=== PATIENT | male | born 1990 | race Caucasian/White ===

== ENCOUNTER 2017-08-03 10:00 | Inpatient (IN) | payer OTHER ==
[2017-08-03 11:51] VITALS: BMI 33.2
--- NOTE | 2017-08-03 13:23 | HP ---
COWS - Scale Resting Pulse: 4= HI > 121 Sweatin=Flushed/Facial Moisture Restless Observation: 3= Extraneous Movement Pupil Size: 2= Moderately Dilated Bone or Joint Aches: 2= Severe Diffuse Aches Runny Nose/ Eye Tearin= Runny Nose/Eyes GI Upset > 30mins: 3= Vomiting/Diarrhea Tremor Observation: 2= Slight Tremor Visible Yawning Observation: 2= >3x During Session Anxiety or Irritability: 2=Irritable/Anxious Goose Flesh Skin: 0=Smooth Skin COWS Score: 24 CIWA Score - CIWA Score Nausea/Vomitin Muscle Tremors: 3 Anxiety: 3 Agitation: 3 Paroxysmal Sweats: 2 Orientation: 0-Oriented Tacttile Disturbances: 2-Mild Itch/Numbness/Burn Auditory Disturbances: 2-Mild Harshness/Frighten Visual Disturbances: 1-Very Mild Sensitivity Headache: 2-Mild CIWA-Ar Total Score: 21 Admission ROS BHS - HPI Chief Complaint: i need help to stop using heroin.alcohol and marijuana Allergies/Adverse Reactions: Allergies Allergy/AdvReac Type Severity Reaction Status Date / Time No Known Allergies Allergy Verified 08/03/17 11:46 History of Present Illness: this 27 years old male with heroin,alcohol and marijuana dependence,seeking detox,never been in treatment before denied medical problem no significant period of sobriety Exam Limitations: No Limitations - Ebola screening Have you traveled outside of the country in the last 21 days: No (N) Have you had contact with anyone from an Ebola affected area: No Have you been sick,other than usual withdrawal symptoms: No Do you have a fever: No - Review of Systems Constitutional: Chills, Loss of Appetite, Malaise, Night Sweats, Changes in sleep, Weakness EENT: reports: Tearing, Nose Congestion Respiratory: reports: Other (asthma) Cardiac: reports: Palpitations GI: reports: Diarrhea, Nausea, Vomiting, Abdominal cramping : reports: No Symptoms Reported Musculoskeletal: reports: Back Pain, Joint Pain, Muscle Pain, Joint Stiffness Integumentary: reports: Dryness Neuro: reports: Headache, Tremors Endocrine: reports: No Symptoms Reported Hematology: reports: No Symptoms Reported Psychiatric: reports: No Sypmtoms Reported, Judgement Intact, Mood/Affect Appropiate, Orientated x3 Patient History - Patient Medical History Hx Asthma: Yes (on albuterol inhaler) Hx Chronic Obstructive Pulmonary Disease (COPD): No Hx Cancer: No Hx Cardiac Disorders: No Hx Hypertension: No Hx Hypercholesterolemia: No Hx Pacemaker: No HX Cerebrovascular Accident: No Hx Seizures: No Hx Dementia: No Hx Diabetes: No Hx Gastrointestinal Disorders: No Hx Liver Disease: No Hx Genitourinary Disorders: No Hx Sexually Transmitted Disorders: No Hx Renal Disease (ESRD): No Hx Thyroid Disease: No Hx Human Immunodeficiency Virus (HIV): No (last in 2014 negative) Hx Hepatitis C: No Hx Depression: No Hx Suicide Attempt: No Hx Bipolar Disorder: No Hx Schizophrenia: No Other Medical History: no suicidal,no homicidal - Patient Surgical History Past Surgical History: No Hx Neurologic Surgery: No Hx Cataract Extraction: No Hx Cardiac Surgery: No Hx Lung Surgery: No Hx Breast Surgery: No Hx Breast Biopsy: No Hx Abdominal Surgery: No Hx Appendectomy: No Hx Cholecystectomy: No Hx Genitourinary Surgery: No Hx Section: No Hx Orthopedic Surgery: No Anesthesia Reaction: No - PPD History Previous Implant?: Yes Documented Results: Negative w/o proof Implanted On Prior R Admission?: No PPD to be Administered?: Yes - Smoking Cessation Smoking history: Never smoked Have you smoked in the past 12 months: No Hx Chewing Tobacco Use: No - Substance & Tx. History Hx Alcohol Use: Yes Hx Substance Use: Yes Substance Use Type: Alcohol, Heroin, Marijuana - Substances Abused Alcohol Route: Oral Frequency: Daily Amount used: 2 (40 ML BUDWEISER), WHISKEY Age of first use: 17 Date of Last Use: 08/03/17 Heroin Route: Injection Frequency: Daily Amount used: 8 BAGS DAILY ($60) Age of first use: 26 Date of Last Use: 08/03/17 Marijuana/Hashish Route: Smoking Frequency: Daily Amount used: 1 BLUNT DAILY Age of first use: 12 Date of Last Use: 08/03/17 Family Disease History - Family Disease History Family History: Denies Admission Physical Exam BHS - Vital Signs Vital Signs: Vital Signs - 24 hr 08/03/17 11:48 Temperature 96.8 F L Pulse Rate 122 H Respiratory 20 Rate Blood Pressure 131/86 - Physical General Appearance: Yes: Moderate Distress, Alcohol on Breath, Tremorous, Sweating HEENTM: Yes: Normal ENT Inspection, S[place], Pharynx Normal Respiratory: Yes: Within Normal Limits, Lungs Clear, No Respiratory Distress Neck: Yes: Within Normal Limits, Supple, Trachea in good position Breast: Yes: Within Normal Limits Cardiology: Yes: Within Normal Limits, Regular Rhythm, Regular Rate, S1, S2 Abdominal: Yes: Within Normal Limits, Normal Bowel Sounds, Non Tender, Flat, Soft Genitourinary: Yes: Within Normal Limits Back: Yes: Normal Inspection, Muscle Spasm Musculoskeletal: Yes: full range of Motion, Back pain, Joint Stiffness, Muscle Pain Extremities: Yes: Within Normal Limits, Normal Range of Motion, Tremors Neurological: Yes: grooving lathe tender II-XII NML intact, Fully Oriented, Alert, Motor Strength 5/5 Integumentary: Yes: Dry, Track Richardson, Other (cellulitis right forearm) Lymphatic: Yes: Within Normal Limits - Diagnostic (1) Opioid dependence with withdrawal Current Visit: Yes Status: Acute (2) Alcohol dependence with uncomplicated withdrawal Current Visit: Yes Status: Acute (3) Cannabis dependence Current Visit: Yes Status: Acute Cleared for Admission [facility] - Detox or Rehab [facility] Level of Care: Medically Managed Detox Regimen/Protocol: Methadone/Librium [facility] Breath Alcohol Content Breath Alcohol Content: 0.062 Urine Drug Screen - Results Drug Screen Negative: No Urine Drug Screen Results: THC-Marijuana, OPI-Opiates
[2017-08-03] MEDS ORDERED: guaiFENesin/D-METHORPHAN HB 10 ML UNIT-DOSE CUPS PO PRN (13:37)
[2017-08-03] MEDS ORDERED: ACETAMINOPHEN 325 MG TABLET (FP) PO PRN (13:37)
[2017-08-03] MEDS ORDERED: MAGNESIUM CITRATE 300 ML BOTTLE PO PRN (13:37)
[2017-08-03] MEDS ORDERED: MENTHOL/PHENOL 1 EACH UD MM PRN (13:37)
[2017-08-03] MEDS ORDERED: MAGNESIUM HYDROX 2400MG/30ML ORAL SUSPENSION 30 ML CUP PO PRN (13:37)
[2017-08-03] MEDS ORDERED: LOPERAMIDE HCL 2 MG CAPSULE PO PRN (13:37)
[2017-08-03] MEDS ORDERED: IBUPROFEN 400 MG TABLET (FP) PO PRN (13:37)
[2017-08-03] MEDS ORDERED: MAG HYDROX/AL HYDROX/SIMETH 30 ML UNIT-DOSE CUP PO PRN (13:37)
[2017-08-03] MEDS ORDERED: P-EPHED 60MG/TRIPROLIDI 2.5MG TABLET PO PRN (13:37)
[2017-08-03] MEDS ORDERED: METHADONE HCL 10 MG TABLET (FOR DETOX USE ONLY) PO ONE ×2 (14:00→23:00)
[2017-08-03] MEDS ORDERED: chlordiazePOXIDE HCL 25 MG CAPSULE PO ONE (14:00)
[2017-08-03] MEDS: ALBUTEROL SO4 18 GM HFA INHALER IH PRN (14:58)
[2017-08-03] MEDS: chlordiazePOXIDE HCL 25 MG CAPSULE PO SCH ×2 (16:58→22:30)
[2017-08-03 19:49] LABS: URINE APPEARANCE CLEAR; URINE BILIRUBIN NEGATIVE (<2.0 mg/dL); URINE BLOOD NEGATIVE (NEGATIVE); URINE COLOR COLORLESS; URINE GLUCOSE (UA) NEGATIVE (NEGATIVE); URINE KETONE NEGATIVE (NEGATIVE); URINE LEUK ESTERASE NEGATIVE (NEGATIVE); URINE NITRITE NEGATIVE (NEGATIVE); URINE PROTEIN NEGATIVE (NEGATIVE); URINE UROBILINOGEN NEGATIVE mg/dL (0.2-1.0)
[2017-08-03] MEDS: hydrOXYzine PAMOATE 25 MG CAPSULE (FP) PO PRN (20:01)
[2017-08-03] MEDS: THIAMINE HCL 100 MG TABLET (FP) PO SCH (22:30)
[2017-08-03] MEDS: MELATONIN 5 MG TABLETS PO PRN (22:31)
[2017-08-04] MEDS: chlordiazePOXIDE HCL 25 MG CAPSULE PO SCH ×4 (05:44→22:07)
[2017-08-04] MEDS: hydrOXYzine PAMOATE 25 MG CAPSULE (FP) PO PRN (05:46)
[2017-08-04] MEDS ORDERED: METHADONE HCL 10 MG TABLET (FOR DETOX USE ONLY) PO SCH (10:00)
--- NOTE | 2017-08-04 10:07 | EKG ---
Test Reason : Blood Pressure : / mmHG Vent. Rate : 088 BPM Atrial Rate : 088 BPM P-R Int : 152 ms QRS Dur : 098 ms QT Int : 358 ms P-R-T Axes : 073 062 023 degrees QTc Int : 433 ms NORMAL SINUS RHYTHM NO PREVIOUS ECGS AVAILABLE Confirmed by EDY BEAN MD ([id number]) on 08/04/2017 10:07:04 AM Referred By: Confirmed By:EDY BEAN MD
[2017-08-04] MEDS: PRENATAL VITAMINS W/ FOLIC ACID TABLET (FP) PO SCH (10:13)
[2017-08-04] MEDS: ALBUTEROL SO4 18 GM HFA INHALER IH PRN ×2 (10:13→15:51)
[2017-08-04 10:17] LABS: HEMOGLOBIN 13.6 GM/dL (11.7-16.9); MCH 28.8 pg (25.7-33.7); MCHC 34.1 g/dl (32.0-35.9); MEAN CELL VOLUME 84.4 fl (80-96); MEAN PLT VOLUME 8.1 fl (7.5-11.1); PLATELET COUNT 351 K/MM3 (134-434); RBC 4.74 M/mm3 (4.00-5.60); RDW 13.1 % (11.9-15.9); WHITE BLOOD COUNT 6.9 K/mm3 (4.0-10.0)
[2017-08-04 10:34] LABS: ALBUMIN 3.9 g/dl (3.4-5.0); ANION GAP 9 (8-16); BLOOD UREA NITROGEN 11 mg/dL (7-18); CALCIUM 9.4 mg/dL (8.5-10.1); CHLORIDE 103 mmol/L (98-107); CO2 26 mmol/L (21-32); GLUCOSE,RANDOM 109 mg/dL (74-106); POTASSIUM 3.7 mmol/L (3.5-5.1); SODIUM 138 mmol/L (136-145)
[2017-08-04 10:39] LABS: ALK PHOS 77 U/L (45-117); BILIRUBIN,TOTAL 0.4 mg/dL (0.2-1.0); CREATININE 1.1 mg/dL (0.7-1.3); SGOT/AST 14 U/L (15-37); SGPT/ALT 20 U/L (12-78); TOT PROT 8.2 g/dl (6.4-8.2)
--- NOTE | 2017-08-04 11:07 | PN ---
[facility] CIWA - CIWA Score Nausea/Vomitin-No Nausea/No Vomiting Muscle Tremors: 4-Moderate,w/Arms Extend Anxiety: 4-Mod. Anxious/Guarded Agitation: 3 Paroxysmal Sweats: No Perspiration Orientation: 0-Oriented Tacttile Disturbances: 2-Mild Itch/Numbness/Burn Auditory Disturbances: 2-Mild Harshness/Frighten Visual Disturbances: 2-Mild Sensitivity Headache: 0-None Present CIWA-Ar Total Score: 17 S COWS - Scale Resting Pulse: 0= [place] 80 or Below Sweatin= No chills or Flushing Restless Observation: 1= Difficult to Sit Still Pupil Size: 0= Normal to Room Light Bone or Joint Aches: 0= None Runny Nose/ Eye Tearin= Runny Nose/Eyes GI Upset > 30mins: 0= None Tremor Observation of Outstretched Hands: 2= Slight Tremor Visible Yawning Observation: 2= >3x During Session Anxiety or Irritability: 2=Irritable/Anxious Goose Flesh Skin: 3=Piloerection COWS Score: 12 S Progress Note (SOAP) Subjective: Anxious, Interrupted Sleep, Tremors. Objective: PATIENT A & O X 3, OBSERVED AMBULATING ON UNIT. NO ACUTE DISTRESS. 08/04/17 11:06 Vital Signs Temperature 97.5 F L 08/04/17 09:06 Pulse Rate 79 08/04/17 09:06 Respiratory Rate 16 08/04/17 09:06 Blood Pressure 107/68 08/04/17 09:06 O2 Sat by Pulse Oximetry (%) Laboratory Tests 08/03/17 08/04/17 08/04/17 14:15 06:00 06:00 WBC 6.9 RBC 4.74 Hgb 13.6 Hct 40.0 MCV 84.4 MCH 28.8 MCHC 34.1 RDW 13.1 Plt Count 351 MPV 8.1 Sodium 138 Potassium 3.7 Chloride 103 Carbon Dioxide 26 Anion Gap 9 BUN 11 Creatinine 1.1 Creat Clearance w eGFR > 60 Random Glucose 109 H Calcium 9.4 Total Bilirubin 0.4 AST 14 L ALT 20 Alkaline Phosphatase 77 Total Protein 8.2 Albumin 3.9 Urine Color Colorless Urine Appearance Clear Urine pH 6.0 Ur Specific [place] 1.003 Urine Protein Negative Urine Glucose (UA) Negative Urine Ketones Negative Urine Blood Negative Urine Nitrite Negative Urine Bilirubin Negative Urine Urobilinogen Negative Ur Leukocyte Esterase Negative RPR Titer 08/04/17 06:00 WBC RBC Hgb Hct MCV MCH MCHC RDW Plt Count MPV Sodium Potassium Chloride Carbon Dioxide Anion Gap BUN Creatinine Creat Clearance w eGFR Random Glucose Calcium Total Bilirubin AST ALT Alkaline Phosphatase Total Protein Albumin Urine Color Urine Appearance Urine pH Ur Specific [place] Urine Protein Urine Glucose (UA) Urine Ketones Urine Blood Urine Nitrite Urine Bilirubin Urine Urobilinogen Ur Leukocyte Esterase RPR Titer Nonreactive LABS NOTED. Assessment: 08/04/17 11:06 WITHDRAWAL SYMPTOMS. Plan: CONTINUE DETOX.
--- NOTE | 2017-08-04 11:37 | CONSULT ---
[facility] Psychiatric Consult - Data Date of interview: 08/04/17 Admission source: [facility] Identifying data: First admission to [facility] for this 27 y/o male seeking detox treatment on for heroin,cannabis,alcohol and xanax dependence.Patient is single without children,domiciled and currently employed. Substance Abuse History: Confirmed by patient in this interview.Details in current [facility] report : Smoking history: Never smoked. Have you smoked in the past 12 months: No. Hx Chewing Tobacco Use: No. - Substance & Tx. History. Hx Alcohol Use: Yes. Hx Substance Use: Yes. Substance Use Type: Alcohol, Heroin, Marijuana. - Substances Abused. Alcohol. Route: Oral. Frequency: Daily. Amount used: 2 (40 ML BUDWEISER), WHISKEY. Age of first use: 17. Date of Last Use: 08/03/17. Heroin. Route: Injection. Frequency: Daily. Amount used: 8 BAGS DAILY ($60). Age of first use: 26. Date of Last Use: 08/03. Marijuana/Hashish. Route: Smoking. Frequency: Daily. Amount used: 1 BLUNT DAILY. Age of first use: 12. Date of Last Use: 08/03/17 Medical History: Bronchial asthma. Psychiatric History: Patient denies. Physical/Sexual Abuse/Trauma History: Patient denies. Additional Comment: Urine Drug Screen Results: THC-Marijuana, OPI-Opiates.Noted. Mental Status Exam - Mental Status Exam Alert and Oriented to: Time, Place, Person Cognitive Function: Good Patient Appearance: Well Groomed (short stature,overweight) Mood: Hopeful, Euthymic Affect: Appropriate, Normal Range Patient Behavior: Fatigued, Appropriate, Cooperative Speech Pattern: Clear Voice Loudness: Normal Thought Process: Intact, Goal Oriented Thought Disorder: Not Present Hallucinations: Denies Suicidal Ideation: Denies Homicidal Ideation: Denies Insight/Judgement: Poor Sleep: Poorly, Difficulty falling asleep Appetite: Good Muscle strength/Tone: Normal Gait/Station: Normal Psychiatric Findings - Problem List ([place] 1, 2,3) (1) Alcohol dependence with uncomplicated withdrawal Current Visit: Yes Status: Acute (2) Cannabis dependence Current Visit: Yes Status: Acute (3) Opioid dependence with withdrawal Current Visit: Yes Status: Acute (4) Insomnia Current Visit: Yes Status: Acute - Initial Treatment Plan Initial Treatment Plan: Psychoeducation.Sleep hygiene.Detoxification in progress.Ambien 10 mg po hs prn.Patient is informed of risk of parasomnias.Agrees with this careplan.Observation.
[2017-08-04] MEDS: chlordiazePOXIDE HCL 25 MG CAPSULE PO PRN (15:36)
[2017-08-04] MEDS: ZOLPIDEM TARTRATE 10 MG TABLET (PARK CARE ONLY) PO PRN (22:07)
[2017-08-04] MEDS: THIAMINE HCL 100 MG TABLET (FP) PO SCH (22:07)
[2017-08-05] MEDS: chlordiazePOXIDE HCL 25 MG CAPSULE PO PRN (02:04)
[2017-08-05] MEDS: hydrOXYzine PAMOATE 25 MG CAPSULE (FP) PO PRN ×2 (02:04→15:16)
[2017-08-05] MEDS: chlordiazePOXIDE HCL 25 MG CAPSULE PO SCH ×2 (05:26→10:09)
[2017-08-05] MEDS: METHADONE HCL 5 MG TABLET (FOR DETOX USE ONLY) PO SCH (10:09)
[2017-08-05] MEDS: ALBUTEROL SO4 18 GM HFA INHALER IH PRN ×2 (10:09→22:10)
[2017-08-05] MEDS: PRENATAL VITAMINS W/ FOLIC ACID TABLET (FP) PO SCH (10:09)
--- NOTE | 2017-08-05 14:54 | PN ---
S CIWA - CIWA Score Nausea/Vomitin-No Nausea/No Vomiting Muscle Tremors: None Anxiety: 4-Mod. Anxious/Guarded Agitation: 2 Paroxysmal Sweats: 4-Forehead w/Sweat Beads Orientation: 0-Oriented Tacttile Disturbances: 2-Mild Itch/Numbness/Burn Auditory Disturbances: 1-Very Mild Visual Disturbances: 2-Mild Sensitivity Headache: 0-None Present CIWA-Ar Total Score: 15 BHS COWS - Scale Resting Pulse: 1= [place] 81-100 Sweatin= Chills/Flushing Restless Observation: 1= Difficult to Sit Still Pupil Size: 0= Normal to Room Light Bone or Joint Aches: 0= None Runny Nose/ Eye Tearin= Nasal Congestion GI Upset > 30mins: 1= Stomach Cramp Tremor Observation of Outstretched Hands: 0= None Yawning Observation: 2= >3x During Session Anxiety or Irritability: 2=Irritable/Anxious Goose Flesh Skin: 3=Piloerection COWS Score: 12 BHS Progress Note (SOAP) Subjective: Interrupted Sleep, Sweating, Stomach Cramping, Chills, Anxious. Objective: PATIENT A & O X 3, OBSERVED AMBULATING ON UNIT. NO ACUTE DISTRESS. 08/05/17 14:53 Vital Signs Temperature 96.9 F L 08/05/17 14:50 Pulse Rate 93 H 08/05/17 14:50 Respiratory Rate 18 08/05/17 14:50 Blood Pressure 108/65 08/05/17 14:50 O2 Sat by Pulse Oximetry (%) Laboratory Tests 08/03/17 08/04/17 08/04/17 14:15 06:00 06:00 WBC 6.9 RBC 4.74 Hgb 13.6 Hct 40.0 MCV 84.4 MCH 28.8 MCHC 34.1 RDW 13.1 Plt Count 351 MPV 8.1 Sodium 138 Potassium 3.7 Chloride 103 Carbon Dioxide 26 Anion Gap 9 BUN 11 Creatinine 1.1 Creat Clearance w eGFR > 60 Random Glucose 109 H Calcium 9.4 Total Bilirubin 0.4 AST 14 L ALT 20 Alkaline Phosphatase 77 Total Protein 8.2 Albumin 3.9 Urine Color Colorless Urine Appearance Clear Urine pH 6.0 Ur Specific [place] 1.003 Urine Protein Negative Urine Glucose (UA) Negative Urine Ketones Negative Urine Blood Negative Urine Nitrite Negative Urine Bilirubin Negative Urine Urobilinogen Negative Ur Leukocyte Esterase Negative RPR Titer 08/04/17 06:00 WBC RBC Hgb Hct MCV MCH MCHC RDW Plt Count MPV Sodium Potassium Chloride Carbon Dioxide Anion Gap BUN Creatinine Creat Clearance w eGFR Random Glucose Calcium Total Bilirubin AST ALT Alkaline Phosphatase Total Protein Albumin Urine Color Urine Appearance Urine pH Ur Specific [place] Urine Protein Urine Glucose (UA) Urine Ketones Urine Blood Urine Nitrite Urine Bilirubin Urine Urobilinogen Ur Leukocyte Esterase RPR Titer Nonreactive LABS NOTED. Assessment: 08/05/17 14:53 WITHDRAWAL SYMPTOMS. Plan: CONTINUE DETOX.
[2017-08-05] MEDS: chlordiazePOXIDE 5 MG CAPSULE PO SCH ×2 (17:21→22:10)
[2017-08-05] MEDS: THIAMINE HCL 100 MG TABLET (FP) PO SCH (22:10)
[2017-08-05] MEDS: ZOLPIDEM TARTRATE 10 MG TABLET (PARK CARE ONLY) PO PRN (22:12)
[2017-08-06] MEDS: hydrOXYzine PAMOATE 25 MG CAPSULE (FP) PO PRN (00:30)
[2017-08-06] MEDS: MELATONIN 5 MG TABLETS PO PRN (00:30)
[2017-08-06] MEDS: chlordiazePOXIDE HCL 25 MG CAPSULE PO PRN (01:24)
[2017-08-06] MEDS: ALBUTEROL SO4 18 GM HFA INHALER IH PRN (06:13)
[2017-08-06] MEDS: chlordiazePOXIDE 5 MG CAPSULE PO SCH ×2 (06:13→10:11)
[2017-08-06] MEDS: PRENATAL VITAMINS W/ FOLIC ACID TABLET (FP) PO SCH (10:11)
[2017-08-06] MEDS: METHADONE HCL 5 MG TABLET (FOR DETOX USE ONLY) PO SCH (10:11)
--- NOTE | 2017-08-06 16:29 | PN ---
BHS Progress Note (SOAP) Subjective: Interrupted Sleep, Sweating, Anxious, Fatigue. Objective: PATIENT A & O X 3, OBSERVED AMBULATING ON UNIT. NO ACUTE DISTRESS. 08/06/17 16:28 Vital Signs Temperature 96.8 F L 08/06/17 10:33 Pulse Rate 90 08/06/17 10:33 Respiratory Rate 20 08/06/17 10:33 Blood Pressure 121/78 08/06/17 10:33 O2 Sat by Pulse Oximetry (%) Laboratory Tests 08/03/17 08/04/17 08/04/17 14:15 06:00 06:00 WBC 6.9 RBC 4.74 Hgb 13.6 Hct 40.0 MCV 84.4 MCH 28.8 MCHC 34.1 RDW 13.1 Plt Count 351 MPV 8.1 Sodium 138 Potassium 3.7 Chloride 103 Carbon Dioxide 26 Anion Gap 9 BUN 11 Creatinine 1.1 Creat Clearance w eGFR > 60 Random Glucose 109 H Calcium 9.4 Total Bilirubin 0.4 AST 14 L ALT 20 Alkaline Phosphatase 77 Total Protein 8.2 Albumin 3.9 Urine Color Colorless Urine Appearance Clear Urine pH 6.0 Ur Specific [place] 1.003 Urine Protein Negative Urine Glucose (UA) Negative Urine Ketones Negative Urine Blood Negative Urine Nitrite Negative Urine Bilirubin Negative Urine Urobilinogen Negative Ur Leukocyte Esterase Negative RPR Titer 08/04/17 06:00 WBC RBC Hgb Hct MCV MCH MCHC RDW Plt Count MPV Sodium Potassium Chloride Carbon Dioxide Anion Gap BUN Creatinine Creat Clearance w eGFR Random Glucose Calcium Total Bilirubin AST ALT Alkaline Phosphatase Total Protein Albumin Urine Color Urine Appearance Urine pH Ur Specific [place] Urine Protein Urine Glucose (UA) Urine Ketones Urine Blood Urine Nitrite Urine Bilirubin Urine Urobilinogen Ur Leukocyte Esterase RPR Titer Nonreactive LABS NOTED. Assessment: 08/06/17 16:28 WITHDRAWAL SYMPTOMS. Plan: CONTINUE DETOX. INCREASE DAILY PO FLUID INTAKE.
[2017-08-06] MEDS ORDERED: chlordiazePOXIDE HCL 10 MG CAPSULE PO SCH (17:00)
[2017-08-06 17:48] VITALS: BP 106/64; PULSE 80; TEMP 97.3
--- NOTE | 2017-08-06 18:38 | PN ---
S Progress Note Note: called by nurse patient did not want to complete treatment.seen by counselor, did not want to wait,signed release ama
--- NOTE | 2017-08-06 18:43 | DS ---
[facility] Detox Discharge Summary Admission Date: 08/03/17 Discharge Date: 08/06/17 - History Present History: Alcohol Dependence, Cannabis Dependence, Opioid Dependence Additional Comments: patient did not want to complete treatment,seen by counselor,did not want to wait,signed release ama - Physical Exam Results Vital Signs: Vital Signs Temperature 97.3 F L 08/06/17 17:45 Pulse Rate 80 08/06/17 17:45 Respiratory Rate 18 08/06/17 17:45 Blood Pressure 106/64 08/06/17 17:45 O2 Sat by Pulse Oximetry (%) Pertinent Admission Physical Exam Findings: withdrawal signs and symptom Vital Signs Temperature 97.3 F L 08/06/17 17:45 Pulse Rate 80 08/06/17 17:45 Respiratory Rate 18 08/06/17 17:45 Blood Pressure 106/64 08/06/17 17:45 O2 Sat by Pulse Oximetry (%) Laboratory Last Values WBC 6.9 K/mm3 (4.0-10.0) 08/04/17 06:00 RBC 4.74 M/mm3 (4.00-5.60) 08/04/17 06:00 Hgb 13.6 GM/dL (11.7-16.9) 08/04/17 06:00 Hct 40.0 % (35.4-49) 08/04/17 06:00 MCV 84.4 fl (80-96) 08/04/17 06:00 MCH 28.8 pg (25.7-33.7) 08/04/17 06:00 MCHC 34.1 g/dl (32.0-35.9) 08/04/17 06:00 RDW 13.1 % (11.9-15.9) 08/04/17 06:00 Plt Count 351 K/MM3 (134-434) 08/04/17 06:00 MPV 8.1 fl (7.5-11.1) 08/04/17 06:00 Sodium 138 mmol/L (136-145) 08/04/17 06:00 Potassium 3.7 mmol/L (3.5-5.1) 08/04/17 06:00 Chloride 103 mmol/L (98-107) 08/04/17 06:00 Carbon Dioxide 26 mmol/L (21-32) 08/04/17 06:00 Anion Gap 9 (8-16) 08/04/17 06:00 BUN 11 mg/dL (7-18) 08/04/17 06:00 Creatinine 1.1 mg/dL (0.7-1.3) 08/04/17 06:00 Creat Clearance w eGFR > 60 (>60) 08/04/17 06:00 Random Glucose 109 mg/dL (74-106) H 08/04/17 06:00 Calcium 9.4 mg/dL (8.5-10.1) 08/04/17 06:00 Total Bilirubin 0.4 mg/dL (0.2-1.0) 08/04/17 06:00 AST 14 U/L (15-37) L 08/04/17 06:00 ALT 20 U/L (12-78) 08/04/17 06:00 Alkaline Phosphatase 77 U/L (45-117) 08/04/17 06:00 Total Protein 8.2 g/dl (6.4-8.2) 08/04/17 06:00 Albumin 3.9 g/dl (3.4-5.0) 08/04/17 06:00 Urine Color Colorless 08/03/17 14:15 Urine Appearance Clear 08/03/17 14:15 Urine pH 6.0 (5.0-8.0) 08/03/17 14:15 Ur Specific [place] 1.003 (1.001-1.035) 08/03/17 14:15 Urine Protein Negative (NEGATIVE) 08/03/17 14:15 Urine Glucose (UA) Negative (NEGATIVE) 08/03/17 14:15 Urine Ketones Negative (NEGATIVE) 08/03/17 14:15 Urine Blood Negative (NEGATIVE) 08/03/17 14:15 Urine Nitrite Negative (NEGATIVE) 08/03/17 14:15 Urine Bilirubin Negative (<2.0 mg/dL) 08/03/17 14:15 Urine Urobilinogen Negative mg/dL (0.2-1.0) 08/03/17 14:15 Ur Leukocyte Esterase Negative (NEGATIVE) 08/03/17 14:15 RPR Titer Nonreactive (NONREACTIVE) 08/04/17 06:00 - Medication Discharge Medications: Ambulatory Orders Albuterol Sulfate Inhaler - [Ventolin Hfa Inhaler -] 1 - 2 inh PO Q4H 08/03/17 - Diagnosis (1) Opioid dependence with withdrawal Current Visit: Yes Status: Acute (2) Alcohol dependence with uncomplicated withdrawal Current Visit: Yes Status: Acute (3) Cannabis dependence Current Visit: Yes Status: Acute - AMA Did Patient Leave Against Medical Advice: Yes
[2017-08-07] MEDS ORDERED: METHADONE HCL 10 MG TABLET (FOR DETOX USE ONLY) PO SCH (10:00)
[2017-08-08] MEDS ORDERED: METHADONE HCL 5 MG TABLET (FOR DETOX USE ONLY) PO SCH (06:00)
== END 2017-08-06 19:21 | disposition left against medical advice (07) | DRG 770 ==
LOC: YASAS 10:00 → Y3N 13:34
PROVIDERS: ADMIT Internal Medicine; ATTEND Internal Medicine
PROC: HZ2ZZZZ Detoxification Services for Substance Abuse Treatment (ICD-10-PCS; principal; 2017-08-03)
DX: F11.23 Opioid dependence with withdrawal (principal); F10.230 Alcohol dependence with withdrawal, uncomplicated; F12.20 Cannabis dependence, uncomplicated; G47.00 Insomnia, unspecified; J45.909 Unspecified asthma, uncomplicated
CPT/HCPCS: 36415; 80053; 81003; 85027; 86593; 93005; 93010

== ENCOUNTER 2018-01-27 09:13 | Inpatient (IN) | payer OTHER ==
[2018-01-27 09:56] VITALS: BMI 34.4
--- NOTE | 2018-01-27 10:38 | HP ---
COWS - Scale Resting Pulse: 2= [place] 101-120 Sweatin= Chills/Flushing Restless Observation: 1= Difficult to Sit Still Pupil Size: 0= Normal to Room Light Bone or Joint Aches: 1= Mild Discomfort Runny Nose/ Eye Tearin= Runny Nose/Eyes GI Upset > 30mins: 2= Nausea/Diarrhea Tremor Observation: 2= Slight Tremor Visible Yawning Observation: 1= 1-2x During Session Anxiety or Irritability: 2=Irritable/Anxious Goose Flesh Skin: 0=Smooth Skin COWS Score: 14 CIWA Score - CIWA Score Nausea/Vomitin Muscle Tremors: 3 Anxiety: 4-Mod. Anxious/Guarded Agitation: 1-Slight > Activity Paroxysmal Sweats: 1-Minimal Palms Moist Orientation: 0-Oriented Tacttile Disturbances: 1-Very Mild Itch/Numbness Auditory Disturbances: 1-Very Mild Visual Disturbances: 1-Very Mild Sensitivity Headache: 1-Very Mild CIWA-Ar Total Score: 15 Admission ROS [facility] - HPI Chief Complaint: I came here myself, I can't stop, I get real sick, I wouldn't wish this on my worst enemy Allergies/Adverse Reactions: Allergies Allergy/AdvReac Type Severity Reaction Status Date / Time No Known Allergies Allergy Verified 01/27/18 09:51 History of Present Illness: 27 yo gentleman here for detox from opiates, alcohol, alprazolam, also using cocaine and marijuana. No seizures but does have black outs. States had a DUI, realized he needs help to stop using. Feeling sick now, beginning chills, feels 'strange' when he starts to 'come down' - can't stop using, uses first thing in the morning. Exam Limitations: Clinical Condition - Ebola screening Have you traveled outside of the country in the last 21 days: No (N) Have you had contact with anyone from an Ebola affected area: No Have you been sick,other than usual withdrawal symptoms: No Do you have a fever: No - Review of Systems Constitutional: Loss of Appetite, Night Sweats, Changes in sleep EENT: reports: Tearing, Nose Congestion Respiratory: reports: No Symptoms reported Cardiac: reports: No Symptoms Reported GI: reports: Poor Appetite, Indigestion, Abdominal cramping : reports: Dysuria, Frequency Musculoskeletal: reports: Back Pain, Joint Pain, Muscle Pain Integumentary: reports: Rash (eczema) Neuro: reports: Headache, Tremors Endocrine: reports: No Symptoms Reported Hematology: reports: No Symptoms Reported Psychiatric: reports: Judgement Intact, Mood/Affect Appropiate, Anxious Other Systems: Reviewed and Negative Patient History - Patient Medical History Hx Asthma: Yes (on meds) Hx Chronic Obstructive Pulmonary Disease (COPD): No Hx Cancer: No Hx Cardiac Disorders: No Hx Hypertension: No Hx Hypercholesterolemia: No Hx Pacemaker: No HX Cerebrovascular Accident: No Hx Seizures: No Hx Dementia: No Hx Diabetes: No Hx Gastrointestinal Disorders: No Hx Liver Disease: No Hx Genitourinary Disorders: No Hx Sexually Transmitted Disorders: No Hx Renal Disease (ESRD): No Hx Thyroid Disease: No Hx Human Immunodeficiency Virus (HIV): No (last in 2014 negative) Hx Hepatitis C: No Hx Depression: Yes (feels stress, insomnia) Hx Suicide Attempt: No Hx Bipolar Disorder: No Hx Schizophrenia: No - Patient Surgical History Past Surgical History: No Hx Neurologic Surgery: No Hx Cataract Extraction: No Hx Cardiac Surgery: No Hx Lung Surgery: No Hx Breast Surgery: No Hx Breast Biopsy: No Hx Abdominal Surgery: No Hx Appendectomy: No Hx Cholecystectomy: No Hx Genitourinary Surgery: No Hx Section: No Hx Orthopedic Surgery: No Anesthesia Reaction: No - PPD History Previous Implant?: Yes Documented Results: Negative w/proof Implanted On Prior [facility] Admission?: Yes Date: 08/05/17 PPD to be Administered?: No - Reproductive History Patient is a Female of Child Bearing Age (11 -55 yrs old): No (male) - Smoking Cessation Smoking history: Never smoked Have you smoked in the past 12 months: No Cigars Per Day: 0 Hx Chewing Tobacco Use: No - Substance & Tx. History Hx Alcohol Use: Yes Hx Substance Use: Yes Substance Use Type: Alcohol, Cocaine, Heroin, Marijuana, Tranquilizers Hx Substance Use Treatment: Yes (detox, oupatient rehab,) - Substances Abused Heroin Route: also injects Frequency: Daily Amount used: 30 bags Age of first use: 26 Date of Last Use: 01/27/18 Alcohol Route: Oral Frequency: Daily Amount used: 3-4 40oz cans of beer Age of first use: 14 Date of Last Use: 01/27/18 Marijuana/Hashish Route: Smoking Frequency: Daily Amount used: 3 blunts Age of first use: 10 Date of Last Use: 01/27/18 Alprazolam (Xanax) Route: Inhalation Frequency: Daily Amount used: 1-2 2mg tablets Age of first use: 25 Date of Last Use: 01/27/18 Non-Rx Methadone Route: Oral Frequency: 1-3 times last 30 days Amount used: 60 mg Age of first use: 27 Date of Last Use: 01/25/18 cocaine Route: Inhalation Frequency: 1-2 times per week Amount used: 2gm Age of first use: 17 Date of Last Use: 01/25/18 Family Disease History - Family Disease History Family Disease History: Heart Disease: Mother (living, htn,), Other: Father ( living,cirrhosis,etoh), Mother, Brother (two - healthy), Sister (two - healthy) Admission Physical Exam [facility] - Vital Signs Vital Signs: Vital Signs - 24 hr 01/27/18 09:54 Temperature 96.6 F L Pulse Rate 101 H Respiratory 20 Rate Blood Pressure 131/89 - Physical General Appearance: Yes: Nourished, Appropriately Dressed, Moderate Distress, Tremorous, Anxious HEENTM: Yes: EOMI, Hearing grossly Normal, Normocephalic, Normal Voice, Pharynx Normal Respiratory: Yes: No Respiratory Distress, Wheezing Neck: Yes: No masses,lesions,Nodules, Supple Breast: Yes: Breast Exam Deferred Cardiology: Yes: Regular Rhythm, Tachycardia Abdominal: Yes: Soft Genitourinary: Yes: Frequency, Dysuria Back: Yes: Normal Inspection Musculoskeletal: Yes: full range of Motion, Gait Steady, Back pain, Muscle Pain Extremities: Yes: Normal Inspection, Normal Range of Motion, Non-Tender Neurological: Yes: Fully Oriented, Alert, Motor Strength 5/5, Normal Mood/Affect , Normal Response Integumentary: Yes: Normal Color, Warm, Rash (both elbows - flat erythematous rash (states chronic eczema)) Lymphatic: Yes: Within Normal Limits - Diagnostic (1) Opioid dependence with withdrawal Current Visit: Yes Status: Chronic (2) Sedative, hypnotic or anxiolytic dependence with withdrawal, uncomplicated Current Visit: Yes Status: Chronic (3) Alcohol dependence with uncomplicated withdrawal Current Visit: Yes Status: Chronic (4) Cannabis dependence Current Visit: Yes Status: Chronic (5) Asthma in adult Current Visit: Yes Status: Chronic Qualifiers: Asthma severity: moderate Asthma persistence: persistent Asthma complication type: uncomplicated Qualified Code(s): J45.40 - Moderate persistent asthma, uncomplicated (6) Eczema Current Visit: Yes Status: Chronic Qualifiers: Eczema type: unspecified Qualified Code(s): L30.9 - Dermatitis, unspecified Cleared for Admission [facility] - Detox or Rehab S Level of Care: Medically Managed Detox Regimen/Protocol: Methadone/Valium S Breath Alcohol Content Breath Alcohol Content: 0.071 Urine Drug Screen - Results Drug Screen Negative: No Urine Drug Screen Results: THC-Marijuana, OPI-Opiates, BZO-Benzodiazepines, MTD- Methadone, OXY-Oxycodone, FEN-Fentanyl
[2018-01-27] MEDS ORDERED: MAG HYDROX/AL HYDROX/SIMETH 30 ML UNIT-DOSE CUP PO PRN (10:46)
[2018-01-27] MEDS ORDERED: IBUPROFEN 400 MG TABLET (FP) PO PRN (10:46)
[2018-01-27] MEDS ORDERED: guaiFENesin/D-METHORPHAN HB 10 ML UNIT-DOSE CUPS PO PRN (10:46)
[2018-01-27] MEDS ORDERED: MENTHOL/PHENOL 1 EACH UD MM PRN (10:46)
[2018-01-27] MEDS ORDERED: ACETAMINOPHEN 325 MG TABLET (FP) PO PRN (10:46)
[2018-01-27] MEDS ORDERED: MAGNESIUM CITRATE 300 ML BOTTLE PO PRN (10:46)
[2018-01-27] MEDS ORDERED: P-EPHED 60MG/TRIPROLIDI 2.5MG TABLET PO PRN (10:46)
[2018-01-27] MEDS ORDERED: MAGNESIUM HYDROX 2400MG/30ML ORAL SUSPENSION 30 ML CUP PO PRN (10:46)
[2018-01-27] MEDS ORDERED: LOPERAMIDE HCL 2 MG CAPSULE PO PRN (10:46)
[2018-01-27] MEDS ORDERED: METHADONE HCL 10 MG TABLET (FOR DETOX USE ONLY) PO ONE ×2 (10:46→23:00)
[2018-01-27] MEDS ORDERED: diazePAM 5 MG TABLET PO ONE (12:30)
[2018-01-27] MEDS ORDERED: ALBUTEROL SO4 8 GM HFA INHALER IH SCH (14:00)
[2018-01-27] MEDS: BETAMETHASONE DIPR 0.05% CREAM 15 GM TUBE TP SCH ×2 (14:25→23:06)
[2018-01-27] MEDS: diazePAM 5 MG TABLET PO SCH ×2 (14:25→22:07)
[2018-01-27] MEDS: BUDESONIDE/FORMETEROL FUMARATE 80/4.5 mcg INHALER IH SCH ×2 (15:14→22:06)
[2018-01-27] MEDS: ALBUTEROL SO4 8 GM HFA INHALER IH PRN (15:40)
[2018-01-27] MEDS: ALBUTEROL SO4 2.5/IPRATROPIUM 0.5 INH SOL 3 ML VIAL.NEB. NEB PRN ×2 (15:42→23:29)
[2018-01-27 17:56] LABS: URINE APPEARANCE CLEAR; URINE BILIRUBIN NEGATIVE (<2.0 mg/dL); URINE COLOR LTYELLOW; URINE GLUCOSE (UA) NEGATIVE (NEGATIVE); URINE KETONE NEGATIVE (NEGATIVE); URINE LEUK ESTERASE NEGATIVE (NEGATIVE); URINE NITRITE NEGATIVE (NEGATIVE); URINE PROTEIN NEGATIVE (NEGATIVE); URINE UROBILINOGEN NEGATIVE mg/dL (0.2-1.0)
--- NOTE | 2018-01-27 18:09 | EKG ---
Test Reason : Blood Pressure : / mmHG Vent. Rate : 113 BPM Atrial Rate : 113 BPM P-R Int : 154 ms QRS Dur : 092 ms QT Int : 324 ms P-R-T Axes : 075 079 043 degrees QTc Int : 444 ms SINUS TACHYCARDIA OTHERWISE NORMAL ECG WHEN COMPARED WITH ECG OF 03-AUG-2017 14:39, NO SIGNIFICANT CHANGE WAS FOUND Confirmed by VICTOR MANUEL WEN MD ([id number]) on 01/27/2018 6:08:41 PM Referred By: Confirmed By:VICTOR MANUEL WEN MD
[2018-01-27] MEDS ORDERED: MELATONIN 5 MG TABLETS PO PRN (22:00)
[2018-01-27] MEDS: THIAMINE HCL 100 MG TABLET (FP) PO SCH (22:07)
[2018-01-28] MEDS: ALBUTEROL SO4 8 GM HFA INHALER IH PRN ×3 (02:33→17:42)
[2018-01-28] MEDS: diazePAM 5 MG TABLET PO SCH ×3 (05:51→22:15)
--- NOTE | 2018-01-28 06:52 | CONSULT ---
[facility] Psychiatric Consult - Data Date of interview: 01/28/18 Admission source: Self-referred Identifying data: Mr Omer is a 27 years old single male, employed in maintenance at [employer], domiciled seeking detox treatment for alcohol, opioid, cocaine, benzodiazepine and cannabis Substance Abuse History: Reports history of alcohol, heroin, non Rx methadone, cocaine, xanax and marijuana use Medical History: Unremarkable except for bronchial asthma. Psychiatric History: Denies history of previous psychiatric treatment Physical/Sexual Abuse/Trauma History: Denies history of emotional, physical or sexual abuse as well as DV relationship. No service Additional Comment: Reports history of 3-4 previous misdemeanor arrests. Denies being on probation at present Mental Status Exam - Mental Status Exam Alert and Oriented to: Time, Person Cognitive Function: Fair Patient Appearance: Well Groomed Mood: Hopeful, Euthymic Affect: Appropriate Patient Behavior: Cooperative Speech Pattern: Clear Voice Loudness: Normal Thought Process: Intact, Goal Oriented Thought Disorder: Not Present Hallucinations: Denies Suicidal Ideation: Denies Homicidal Ideation: Denies Insight/Judgement: Fair Sleep: Poorly Appetite: Good Muscle strength/Tone: Normal Gait/Station: Normal Psychiatric Findings - Problem List ([place] 1, 2,3) (1) Substance-induced sleep disorder Current Visit: Yes Status: Acute (2) Alcohol dependence with uncomplicated withdrawal Current Visit: Yes Status: Chronic (3) Opioid dependence with withdrawal Current Visit: Yes Status: Acute (4) Sedative, hypnotic or anxiolytic dependence with withdrawal, uncomplicated Current Visit: Yes Status: Acute (5) Cocaine dependence Current Visit: Yes Status: Acute (6) Cannabis dependence Current Visit: Yes Status: Acute (7) Asthma in adult Current Visit: Yes Status: Chronic Qualifiers: Asthma severity: moderate Asthma persistence: persistent Asthma complication type: uncomplicated Qualified Code(s): J45.40 - Moderate persistent asthma, uncomplicated - Initial Treatment Plan Initial Treatment Plan: 1) Start Ambien 10 mg po HS prn for insomnia. 2) Continue inpatient detoxification
[2018-01-28] MEDS: BETAMETHASONE DIPR 0.05% CREAM 15 GM TUBE TP SCH ×3 (07:15→22:15)
[2018-01-28] MEDS: ALBUTEROL SO4 2.5/IPRATROPIUM 0.5 INH SOL 3 ML VIAL.NEB. NEB PRN (08:16)
[2018-01-28 09:57] LABS: HEMATOCRIT 39.2 % (35.4-49); MCH 28.3 pg (25.7-33.7); MCHC 33.1 g/dl (32.0-35.9); MEAN CELL VOLUME 85.3 fl (80-96); MEAN PLT VOLUME 8.1 fl (7.5-11.1); PLATELET COUNT 198 K/MM3 (134-434); RBC 4.59 M/mm3 (4.00-5.60); RDW 13.4 % (11.9-15.9); WHITE BLOOD COUNT 5.8 K/mm3 (4.0-10.0)
[2018-01-28] MEDS ORDERED: METHADONE HCL 10 MG TABLET (FOR DETOX USE ONLY) PO SCH (10:00)
[2018-01-28] MEDS: PRENATAL VITAMINS W/ FOLIC ACID TABLET (FP) PO SCH (10:16)
[2018-01-28] MEDS: BUDESONIDE/FORMETEROL FUMARATE 80/4.5 mcg INHALER IH SCH ×2 (10:16→22:17)
[2018-01-28] MEDS: diazePAM 5 MG TABLET PO PRN ×2 (10:17→17:43)
[2018-01-28 10:22] LABS: ALBUMIN 3.3 g/dl (3.4-5.0); ALK PHOS 71 U/L (45-117); ANION GAP 8 MMOL/L (8-16); BILIRUBIN,TOTAL 0.4 mg/dL (0.2-1); BLOOD UREA NITROGEN 15 mg/dL (7-18); CALCIUM 8.3 mg/dL (8.5-10.1); CHLORIDE 106 mmol/L (98-107); CO2 27 mmol/L (21-32); CREATININE 0.8 mg/dL (0.55-1.3); GLUCOSE,RANDOM 89 mg/dL (74-106); POTASSIUM 3.8 mmol/L (3.5-5.1); SGOT/AST 13 U/L (15-37); SGPT/ALT 23 U/L (13-61); SODIUM 142 mmol/L (136-145); TOT PROT 6.4 g/dl (6.4-8.2)
--- NOTE | 2018-01-28 15:27 | PN ---
[facility] CIWA - CIWA Score Nausea/Vomitin Muscle Tremors: 4-Moderate,w/Arms Extend Anxiety: 4-Mod. Anxious/Guarded Agitation: 4-Moderately Restless Paroxysmal Sweats: 3 Orientation: 0-Oriented Tacttile Disturbances: 0-None Auditory Disturbances: 0-None Visual Disturbances: 0-None Headache: 0-None Present CIWA-Ar Total Score: 18 S COWS - Scale Resting Pulse: 1= [place] 81-100 Sweatin= Chills/Flushing Restless Observation: 3= Extraneous Movement Pupil Size: 0= Normal to Room Light Bone or Joint Aches: 2= Severe Diffuse Aches Runny Nose/ Eye Tearin= Runny Nose/Eyes GI Upset > 30mins: 2= Nausea/Diarrhea Tremor Observation of Outstretched Hands: 2= Slight Tremor Visible Yawning Observation: 1= 1-2x During Session Anxiety or Irritability: 2=Irritable/Anxious Goose Flesh Skin: 0=Smooth Skin COWS Score: 16 [facility] Progress Note (SOAP) Subjective: Interrupted sleep, neck hurts, tremor, nasal congestion Objective: 01/28/18 15:26 Last Vital Signs Temp Pulse Resp BP Pulse Ox 96.8 F L 93 H 16 119/75 01/28/18 14:20 01/28/18 14:20 01/28/18 14:20 01/28/18 14:20 Laboratory Tests 01/27/18 01/28/18 01/28/18 15:52 07:30 07:30 WBC 5.8 RBC 4.59 Hgb 13.0 Hct 39.2 MCV 85.3 MCH 28.3 MCHC 33.1 RDW 13.4 Plt Count 198 D MPV 8.1 Sodium 142 Potassium 3.8 Chloride 106 Carbon Dioxide 27 Anion Gap 8 BUN 15 Creatinine 0.8 Creat Clearance w eGFR > 60 Random Glucose 89 Calcium 8.3 L Total Bilirubin 0.4 AST 13 L ALT 23 Alkaline Phosphatase 71 Total Protein 6.4 Albumin 3.3 L Urine Color Ltyellow Urine Appearance Clear Urine pH 5.0 Ur Specific Page 1.013 Urine Protein Negative Urine Glucose (UA) Negative Urine Ketones Negative Urine Blood Negative Urine Nitrite Negative Urine Bilirubin Negative Urine Urobilinogen Negative Ur Leukocyte Esterase Negative RPR Titer 01/28/18 07:30 WBC RBC Hgb Hct MCV MCH MCHC RDW Plt Count MPV Sodium Potassium Chloride Carbon Dioxide Anion Gap BUN Creatinine Creat Clearance w eGFR Random Glucose Calcium Total Bilirubin AST ALT Alkaline Phosphatase Total Protein Albumin Urine Color Urine Appearance Urine pH Ur Specific Page Urine Protein Urine Glucose (UA) Urine Ketones Urine Blood Urine Nitrite Urine Bilirubin Urine Urobilinogen Ur Leukocyte Esterase RPR Titer Nonreactive Labs reviewed Assessment: 01/28/18 15:26 Withdrawal symptoms Plan: Continue detox Encouraged PO water intake
[2018-01-28] MEDS: THIAMINE HCL 100 MG TABLET (FP) PO SCH (22:15)
[2018-01-28] MEDS: ZOLPIDEM TARTRATE 5 MG TABLET PO PRN (22:16)
[2018-01-29] MEDS: ALBUTEROL SO4 2.5/IPRATROPIUM 0.5 INH SOL 3 ML VIAL.NEB. NEB PRN ×2 (03:43→23:42)
[2018-01-29] MEDS: diazePAM 5 MG TABLET PO PRN ×3 (04:01→18:22)
[2018-01-29] MEDS: ALBUTEROL SO4 8 GM HFA INHALER IH PRN (04:02)
[2018-01-29] MEDS: BETAMETHASONE DIPR 0.05% CREAM 15 GM TUBE TP SCH ×3 (05:49→22:07)
[2018-01-29] MEDS ORDERED: METHADONE HCL 5 MG TABLET (FOR DETOX USE ONLY) PO SCH (10:00)
[2018-01-29] MEDS: BUDESONIDE/FORMETEROL FUMARATE 80/4.5 mcg INHALER IH SCH ×2 (10:26→22:07)
[2018-01-29] MEDS: PRENATAL VITAMINS W/ FOLIC ACID TABLET (FP) PO SCH (10:26)
[2018-01-29] MEDS: diazePAM 5 MG TABLET PO SCH ×2 (10:26→22:06)
--- NOTE | 2018-01-29 13:24 | PN ---
[facility] CIWA - CIWA Score Nausea/Vomitin Muscle Tremors: 3 Anxiety: 3 Agitation: 2 Paroxysmal Sweats: 3 Orientation: 0-Oriented Tacttile Disturbances: 0-None Auditory Disturbances: 0-None Visual Disturbances: 0-None Headache: 0-None Present CIWA-Ar Total Score: 13 [facility] COWS - Scale Resting Pulse: 1= [place] 81-100 Sweatin=Flushed/Facial Moisture Restless Observation: 3= Extraneous Movement Pupil Size: 0= Normal to Room Light Bone or Joint Aches: 1= Mild Discomfort Runny Nose/ Eye Tearin= Runny Nose/Eyes GI Upset > 30mins: 2= Nausea/Diarrhea Tremor Observation of Outstretched Hands: 2= Slight Tremor Visible Yawning Observation: 0= None Anxiety or Irritability: 1=Feels Anxious/Irritable Goose Flesh Skin: 0=Smooth Skin COWS Score: 14 [facility] Progress Note (SOAP) Subjective: sweats shakes low appetite/nausea Objective: 01/29/18 13:32 A & O x 3 In day room chatting with others Assessment: 01/29/18 13:32 withdrawal sx Plan: continue detox
[2018-01-29] MEDS: THIAMINE HCL 100 MG TABLET (FP) PO SCH (22:06)
[2018-01-29] MEDS: ZOLPIDEM TARTRATE 5 MG TABLET PO PRN (22:06)
[2018-01-30] MEDS: diazePAM 5 MG TABLET PO PRN (05:27)
[2018-01-30] MEDS: ALBUTEROL SO4 8 GM HFA INHALER IH PRN (05:27)
[2018-01-30] MEDS: BETAMETHASONE DIPR 0.05% CREAM 15 GM TUBE TP SCH ×3 (06:49→22:03)
[2018-01-30] MEDS: ALBUTEROL SO4 2.5/IPRATROPIUM 0.5 INH SOL 3 ML VIAL.NEB. NEB PRN ×2 (07:58→23:52)
[2018-01-30] MEDS ORDERED: METHADONE HCL 10 MG TABLET (FOR DETOX USE ONLY) PO SCH (10:00)
[2018-01-30] MEDS: diazePAM 5 MG TABLET PO SCH ×2 (10:38→22:02)
[2018-01-30] MEDS: PRENATAL VITAMINS W/ FOLIC ACID TABLET (FP) PO SCH (10:38)
[2018-01-30] MEDS: BUDESONIDE/FORMETEROL FUMARATE 80/4.5 mcg INHALER IH SCH ×2 (10:38→22:03)
--- NOTE | 2018-01-30 12:45 | PN ---
[facility] Progress Note (SOAP) Subjective: Sweating, interrupted sleep. Patient requesting early discharge. Patient was scheduled for discharge home on and requesting to leave tomorrow instead because he has to get to work for 12pm tomorrow. Patient agreed to adjust his detox protocol in order to be discharged tomorrow. Objective: 01/30/18 12:44 Last Vital Signs Temp Pulse Resp BP Pulse Ox 97.6 F 81 18 124/84 01/30/18 09:40 01/30/18 09:40 01/30/18 09:40 01/30/18 09:40 Laboratory Tests 01/27/18 01/28/18 01/28/18 15:52 07:30 07:30 WBC 5.8 RBC 4.59 Hgb 13.0 Hct 39.2 MCV 85.3 MCH 28.3 MCHC 33.1 RDW 13.4 Plt Count 198 D MPV 8.1 Sodium 142 Potassium 3.8 Chloride 106 Carbon Dioxide 27 Anion Gap 8 BUN 15 Creatinine 0.8 Creat Clearance w eGFR > 60 Random Glucose 89 Calcium 8.3 L Total Bilirubin 0.4 AST 13 L ALT 23 Alkaline Phosphatase 71 Total Protein 6.4 Albumin 3.3 L Urine Color Ltyellow Urine Appearance Clear Urine pH 5.0 Ur Specific [place] 1.013 Urine Protein Negative Urine Glucose (UA) Negative Urine Ketones Negative Urine Blood Negative Urine Nitrite Negative Urine Bilirubin Negative Urine Urobilinogen Negative Ur Leukocyte Esterase Negative RPR Titer 01/28/18 07:30 WBC RBC Hgb Hct MCV MCH MCHC RDW Plt Count MPV Sodium Potassium Chloride Carbon Dioxide Anion Gap BUN Creatinine Creat Clearance w eGFR Random Glucose Calcium Total Bilirubin AST ALT Alkaline Phosphatase Total Protein Albumin Urine Color Urine Appearance Urine pH Ur Specific [place] Urine Protein Urine Glucose (UA) Urine Ketones Urine Blood Urine Nitrite Urine Bilirubin Urine Urobilinogen Ur Leukocyte Esterase RPR Titer Nonreactive Labs reviewed Assessment: 01/30/18 12:44 Withdrawal symptoms Plan: Continue detox Encouraged PO water intake Patient scheduled for discharge tomorrow following detox protocol adjustment
[2018-01-30] MEDS: THIAMINE HCL 100 MG TABLET (FP) PO SCH (22:02)
[2018-01-30] MEDS: ZOLPIDEM TARTRATE 5 MG TABLET PO PRN (22:02)
[2018-01-31] MEDS: BETAMETHASONE DIPR 0.05% CREAM 15 GM TUBE TP SCH (05:47)
[2018-01-31] MEDS ORDERED: METHADONE HCL 5 MG TABLET (FOR DETOX USE ONLY) PO SCH (06:00)
[2018-01-31 06:30] VITALS: BP 112/78; PULSE 97; TEMP 97.5
[2018-01-31] MEDS ORDERED: diazePAM 5 MG TABLET PO SCH ×2 (08:00→10:00)
[2018-01-31] MEDS ORDERED: METHADONE HCL 10 MG TABLET (FOR DETOX USE ONLY) PO SCH (10:00)
--- NOTE | 2018-01-31 11:36 | DS ---
[facility] Detox Discharge Summary Admission Date: 01/27/18 Discharge Date: 01/31/18 - History Present History: Alcohol Dependence, Opioid Dependence - Physical Exam Results Vital Signs: Vital Signs Temperature 97.5 F L 01/31/18 06:29 Pulse Rate 97 H 01/31/18 06:29 Respiratory Rate 18 01/31/18 06:29 Blood Pressure 112/78 01/31/18 06:29 O2 Sat by Pulse Oximetry (%) Pertinent Admission Physical Exam Findings: PATIENT TOLERATED DETOX REGIMEN WITHOUT ADVERSE EVENTS. 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 PATIENT TO FOLLOW UP WITH NA/AA AND ENCOURAGED TO ATTEND MEETINGS TO PREVENT RELAPSE. PATIENT D/C MEDICALLY STABLE AND DENIES SI/HI. ADVISED TO GO TO ER IF WITHDRAWAL SX OCCUR AND TO FOLLOW UP WITH PCP WITHIN ONE WEEK OF DISCHARGE. - Treatment Hospital Course: Detox Protocol Followed, Detoxed Safely, Responded well, Discharged Condition Good - Medication Discharge Medications: Ambulatory Orders Albuterol 0.083% Nebulizer [place] [Ventolin 0.083% Nebulizer Soln -] 1 neb NEB Q6H PRN 01/27/18 Albuterol Sulfate Inhaler - [Ventolin HFA Inhaler -] 2 inh IH QID 01/27/18 Betamethasone Dipropionate [Diprosone 0.05% Cream -] 1 applic TP TID 01/27/18 - AMA Did Patient Leave Against Medical Advice: No
[2018-02-01] MEDS ORDERED: METHADONE HCL 5 MG TABLET (FOR DETOX USE ONLY) PO SCH (06:00)
== END 2018-01-31 08:23 | disposition home or self-care (01) | DRG 773 ==
LOC: YASAS 09:13 → Y3N 12:24
PROC: HZ2ZZZZ Detoxification Services for Substance Abuse Treatment (ICD-10-PCS; principal; 2018-01-27)
DX: F11.23 Opioid dependence with withdrawal (principal); F10.230 Alcohol dependence with withdrawal, uncomplicated; F13.230 Sedative, hypnotic or anxiolytic dependence with withdrawal, uncomplicated; F14.20 Cocaine dependence, uncomplicated; F12.20 Cannabis dependence, uncomplicated; F19.282 Other psychoactive substance dependence with psychoactive substance-induced sleep disorder; J45.40 Moderate persistent asthma, uncomplicated; L30.9 Dermatitis, unspecified; R00.0 Tachycardia, unspecified
CPT/HCPCS: 36415; 80053; 81003; 85027; 86593; 93005; 93010; 94640

== ENCOUNTER 2018-07-19 10:47 | Inpatient (IN) | payer OTHER ==
[2018-07-19 12:07] VITALS: BMI 33.2
--- NOTE | 2018-07-19 13:02 | HP ---
COWS - Scale Resting Pulse: 0= [place] 80 or Below Sweatin= Chills/Flushing Restless Observation: 3= Extraneous Movement Pupil Size: 0= Normal to Room Light Bone or Joint Aches: 0= None Runny Nose/ Eye Tearin= Runny Nose/Eyes GI Upset > 30mins: 0= None Tremor Observation: 1= Tremor [place], Not Seen Yawning Observation: 0= None Anxiety or Irritability: 2=Irritable/Anxious Goose Flesh Skin: 0=Smooth Skin COWS Score: 9 CIWA Score Nausea/Vomitin-No Nausea/No Vomiting Muscle Tremors: 1-None Visible, but [place] Anxiety: 4-Mod. Anxious/Guarded Agitation: 4-Moderately Restless Paroxysmal Sweats: 3 Orientation: 0-Oriented Tacttile Disturbances: 0-None Auditory Disturbances: 0-None Visual Disturbances: 0-None Headache: 0-None Present CIWA-Ar Total Score: 12 - Admission Criteria [facility] Guidelines: Admission for Medically Managed Detox: Requires at least one of the followin. CIWA greater than 12 2. Seizures within the past 24 hours 3. Delirium tremens within the past 24 hours 4. Hallucinations within the past 24 hours 5. Acute intervention needed for co occurring medical disorder 6. Acute intervention needed for co occurring psychiatric disorder 7. Severe withdrawal that cannot be handled at a lower level of care (continued vomiting, continued diarrhea, abnormal vital signs) requiring intravenous medication and/or fluids 8. Admission ROS [facility] Allergies/Adverse Reactions: Allergies Allergy/AdvReac Type Severity Reaction Status Date / Time No Known Allergies Allergy Verified 07/19/18 12:01 History of Present Illness: Search Terms: damon omer, 1990 Search Date: 07/19/2018 12:56:26 PM The Drug Utilization Report below displays all of the controlled substance prescriptions, if any, that your patient has filled in the last twelve months. The information displayed on this report is compiled from pharmacy submissions to the Department, and accurately reflects the information as submitted by the pharmacies. This report was requested by: Yovana Montero | Reference #: [id number] Others' Prescriptions Patient Name: Damon Omer Date: 1990 Address: [address] [place] [address] Sex: Male Rx Written Rx Dispensed Drug Quantity Days Supply Prescriber Name 09/28/2017 09/28/2017 codeine-guaifen 10-100 mg/5 ml 45ml 9 Miller, Dori Bassett pt here requesting deotx from etoh and opiate , reports 2 x 40- oz /day daily , reports use x 1 year , reports tremors if not drinking , denies seizures , blackouts , denies falls while intoxicated heroin : 1 bundle / day denies IVDU x since age 22 , current symptoms as above, latest use last night cocaine _ denies use cannabis - 5-6 blunts/day tobacco - denies benzo - reports " it depends on the day " , max 1 /day PMHX : asthma ( since childhood , hospitalized x 2 , [place] ) on ALbuterol PShx : denies Psych : denies Exam Limitations: No Limitations - Ebola screening Have you traveled outside of the country in the last 21 days: No (N) Have you had contact with anyone from an Ebola affected area: No Do you have a fever: No - Review of Systems Constitutional: See HPI EENT: reports: See HPI Respiratory: reports: Shortness of Breath (reports asthma since childhood , hospitalized x 2 most recently 1 year ago , never intubated) Cardiac: reports: No Symptoms Reported GI: reports: See HPI : reports: No Symptoms Reported Musculoskeletal: reports: No Symptoms Reported Integumentary: reports: Other (reports eczema " pretty much all my life ") Neuro: reports: No Symptoms reported Endocrine: reports: No Symptoms Reported Psychiatric: reports: Orientated x3 Patient History - Patient Medical History Hx Asthma: Yes (on meds) Hx Chronic Obstructive Pulmonary Disease (COPD): No Hx Cancer: No Hx Cardiac Disorders: No Hx Hypertension: No Hx Hypercholesterolemia: No Hx Pacemaker: No HX Cerebrovascular Accident: No Hx Seizures: No Hx Dementia: No Hx Diabetes: No Hx Gastrointestinal Disorders: No Hx Liver Disease: No Hx Genitourinary Disorders: No Hx Sexually Transmitted Disorders: No Hx Renal Disease (ESRD): No Hx Thyroid Disease: No Hx Human Immunodeficiency Virus (HIV): No (last in 2014 negative) Hx Hepatitis C: No Hx Depression: Yes (feels stress, insomnia) Hx Suicide Attempt: No Hx Bipolar Disorder: No Hx Schizophrenia: No - Patient Surgical History Past Surgical History: No Hx Neurologic Surgery: No Hx Cataract Extraction: No Hx Cardiac Surgery: No Hx Lung Surgery: No Hx Breast Surgery: No Hx Breast Biopsy: No Hx Abdominal Surgery: No Hx Appendectomy: No Hx Cholecystectomy: No Hx Genitourinary Surgery: No Hx Section: No Hx Orthopedic Surgery: No Anesthesia Reaction: No - PPD History Date: 08/05/17 - Smoking Cessation Smoking history: Never smoked Have you smoked in the past 12 months: No Cigars Per Day: 0 Hx Chewing Tobacco Use: No - Substances abused Heroin Substance route: Inhalation Frequency: Daily Amount used: 1 bundle Age of first use: 21 Date of last use: 07/18/18 Family Disease History - Family Disease History Family Disease History: Heart Disease: Mother (living, htn,), Other: Father ( living,cirrhosis,etoh), Mother, Brother (two - healthy), Sister (two - healthy) Admission Physical Exam [facility] - Vital Signs Vital Signs: Vital Signs - 24 hr 07/19/18 12:03 Temperature 98.2 F Pulse Rate 72 Respiratory 18 Rate Blood Pressure 128/60 - Physical General Appearance: Yes: Mild Distress, Anxious HEENTM: Yes: EOMI, Hearing grossly Normal, Normocephalic, Normal Voice Respiratory: Yes: Chest Non-Tender, Lungs Clear, Normal Breath Sounds Neck: Yes: No masses,lesions,Nodules, Trachea in good position Cardiology: Yes: Regular Rhythm, Regular Rate, S1, S2 Abdominal: Yes: Non Tender, Soft Back: Yes: Normal Inspection Musculoskeletal: Yes: full range of Motion Extremities: Yes: Normal Range of Motion, Non-Tender, Tremors Neurological: Yes: Motor Strength 5/5 Integumentary: Yes: Warm, Rash (anika elbows) - Diagnostic (1) Cannabis dependence Current Visit: Yes Status: Chronic (2) Alcohol dependence with uncomplicated withdrawal Current Visit: Yes Status: Acute (3) Opioid dependence with withdrawal Current Visit: Yes Status: Acute Breathalyzer - Breathalyzer Breathalyzer: 0.068 Urine Drug Screen - Test Device Lot number: [id number] Expiration date: 03/09/20 - Control Is test valid?: Yes - Results Drug screen NEGATIVE: No Urine drug screen results: THC-Marijuana, FEN-Fentanyl, MOP-Opiates, BZO- Benzodiazepines Inpatient Rehab Admission - Rehab Decision to Admit Inpatient rehab admission?: No
[2018-07-19] MEDS ORDERED: MENTHOL/PHENOL 1 EACH UD MM PRN (13:10)
[2018-07-19] MEDS ORDERED: IBUPROFEN 400 MG TABLET (FP) PO PRN (13:10)
[2018-07-19] MEDS ORDERED: ACETAMINOPHEN 325 MG TABLET (FP) PO PRN ×2 (13:10)
[2018-07-19] MEDS ORDERED: MAG HYDROX/AL HYDROX/SIMETH 30 ML UNIT-DOSE CUP PO PRN (13:10)
[2018-07-19] MEDS ORDERED: MAGNESIUM CITRATE 300 ML BOTTLE PO PRN (13:10)
[2018-07-19] MEDS ORDERED: MAGNESIUM HYDROX 2400MG/30ML ORAL SUSPENSION 30 ML CUP PO PRN (13:10)
[2018-07-19] MEDS ORDERED: BISMUTH SUBSALICYLATE 262 MG/15 ML BTL PO PRN (13:10)
[2018-07-19] MEDS ORDERED: ALBUTEROL SO4 0.083% IH SOL 2.5 MG/3 ML VIAL.NEB. NEB PRN (13:11)
[2018-07-19] MEDS: diazePAM 5 MG TABLET PO SCH ×2 (14:20→22:06)
[2018-07-19] MEDS: BETAMETHASONE DIPR 0.05% CREAM 15 GM TUBE TP SCH ×2 (14:24→22:55)
--- NOTE | 2018-07-19 16:39 | EKG ---
Test Reason : Blood Pressure : / mmHG Vent. Rate : 086 BPM Atrial Rate : 086 BPM P-R Int : 154 ms QRS Dur : 090 ms QT Int : 382 ms P-R-T Axes : 065 060 026 degrees QTc Int : 457 ms NORMAL SINUS RHYTHM NORMAL ECG WHEN COMPARED WITH ECG OF 27-JAN-2018 13:32, NO SIGNIFICANT CHANGE WAS FOUND Confirmed by VICTOR MANUEL WEN MD ([id number]) on 07/19/2018 4:38:39 PM Referred By: Confirmed By:VICTOR MANUEL WEN MD
[2018-07-19] MEDS: diazePAM 5 MG TABLET PO PRN (16:48)
[2018-07-19 17:03] LABS: HEMATOCRIT 45.7 % (35.4-49); HEMOGLOBIN 15.5 GM/dL (11.7-16.9); MCH 29.9 pg (25.7-33.7); MCHC 33.9 g/dl (32.0-35.9); MEAN PLT VOLUME 8.6 fl (7.5-11.1); PLATELET COUNT 297 K/MM3 (134-434); RBC 5.19 M/mm3 (4.00-5.60); RDW 14.1 % (11.9-15.9); WHITE BLOOD COUNT 9.1 K/mm3 (4.0-10.0)
[2018-07-19 17:20] LABS: ALBUMIN 4.2 g/dl (3.4-5.0); ALK PHOS 81 U/L (45-117); ANION GAP 10 MMOL/L (8-16); BLOOD UREA NITROGEN 9 mg/dL (7-18); CALCIUM 9.1 mg/dL (8.5-10.1); CHLORIDE 106 mmol/L (98-107); CO2 24 mmol/L (21-32); GLUCOSE,RANDOM 92 mg/dL (74-106); SGOT/AST 10 U/L (15-37); SGPT/ALT 19 U/L (13-61); SODIUM 140 mmol/L (136-145); TOT PROT 7.9 g/dl (6.4-8.2)
[2018-07-19] MEDS ORDERED: QUEtiapine FUMARATE 50 MG TABLET PO ONE (22:00)
[2018-07-19] MEDS: THIAMINE HCL 100 MG TABLET (FP) PO SCH (22:06)
[2018-07-19] MEDS ORDERED: METHADONE HCL 10 MG TABLET (FOR DETOX USE ONLY) PO ONE (23:00)
[2018-07-19] MEDS ORDERED: ALBUTEROL SO4 8 GM HFA INHALER IH ONE (23:09)
[2018-07-19] MEDS: ALBUTEROL SO4 8 GM HFA INHALER IH PRN (23:42)
[2018-07-20] MEDS: diazePAM 5 MG TABLET PO SCH ×3 (05:36→22:18)
[2018-07-20] MEDS: BETAMETHASONE DIPR 0.05% CREAM 15 GM TUBE TP SCH ×3 (06:15→22:17)
[2018-07-20] MEDS ORDERED: METHADONE HCL 10 MG TABLET (FOR DETOX USE ONLY) PO ONE (10:00)
[2018-07-20] MEDS: diazePAM 5 MG TABLET PO PRN (10:05)
[2018-07-20] MEDS: PRENATAL VITAMINS W/ FOLIC ACID TABLET (FP) PO SCH (10:05)
[2018-07-20] MEDS: METHOCARBAMOL 500 MG TABLET PO PRN ×2 (15:56→22:19)
--- NOTE | 2018-07-20 17:09 | PN ---
S CIWA - CIWA Score Nausea/Vomitin-No Nausea/No Vomiting Muscle Tremors: 3 Anxiety: 3 Agitation: 2 Paroxysmal Sweats: 2 Orientation: 0-Oriented Tacttile Disturbances: 2-Mild Itch/Numbness/Burn Auditory Disturbances: 2-Mild Harshness/Frighten Visual Disturbances: 0-None Headache: 0-None Present CIWA-Ar Total Score: 14 BHS COWS - Scale Resting Pulse: 2= [place] 101-120 Sweatin= Chills/Flushing Restless Observation: 1= Difficult to Sit Still Pupil Size: 0= Normal to Room Light Bone or Joint Aches: 2= Severe Diffuse Aches Runny Nose/ Eye Tearin= None GI Upset > 30mins: 0= None Tremor Observation of Outstretched Hands: 2= Slight Tremor Visible Yawning Observation: 1= 1-2x During Session Anxiety or Irritability: 2=Irritable/Anxious Goose Flesh Skin: 3=Piloerection COWS Score: 14 BHS Progress Note (SOAP) Subjective: Anxious, Tremors, Body Aches, Sweating. Objective: PATIENT A & O X 3, OBSERVED AMBULATING ON UNIT. IN NO ACUTE DISTRESS. 07/20/18 17:06 Vital Signs Temperature 97.0 F L 07/20/18 13:21 Pulse Rate 113 H 07/20/18 13:21 Respiratory Rate 18 07/20/18 13:21 Blood Pressure 124/83 07/20/18 13:21 O2 Sat by Pulse Oximetry (%) Laboratory Tests 07/19/18 07/19/18 07/19/18 13:40 13:40 13:40 WBC 9.1 RBC 5.19 Hgb 15.5 Hct 45.7 D MCV 88.0 MCH 29.9 MCHC 33.9 RDW 14.1 Plt Count 297 D MPV 8.6 Sodium 140 Potassium 4.0 Chloride 106 Carbon Dioxide 24 Anion Gap 10 BUN 9 Creatinine 1.0 Creat Clearance w eGFR 88.34 Random Glucose 92 Calcium 9.1 Total Bilirubin 1.0 AST 10 L ALT 19 Alkaline Phosphatase 81 Total Protein 7.9 Albumin 4.2 RPR Titer Nonreactive LABS NOTED. Assessment: 07/20/18 17:06 WITHDRAWAL SYMPTOMS. Plan: CONTINUE DETOX. PRN ROBAXIN PO FOR BODY ACHES / MUSCLE SPASMS.
[2018-07-20] MEDS: THIAMINE HCL 100 MG TABLET (FP) PO SCH (22:18)
[2018-07-20] MEDS: traZODone HCL 50 MG TABLET (FP) PO SCH (22:47)
[2018-07-20] MEDS: ALBUTEROL SO4 8 GM HFA INHALER IH PRN (23:37)
[2018-07-21] MEDS: BETAMETHASONE DIPR 0.05% CREAM 15 GM TUBE TP SCH ×3 (05:14→22:08)
[2018-07-21] MEDS ORDERED: diazePAM 5 MG TABLET PO ONE (06:00)
[2018-07-21] MEDS: PRENATAL VITAMINS W/ FOLIC ACID TABLET (FP) PO SCH (09:55)
[2018-07-21] MEDS: diazePAM 5 MG TABLET PO PRN ×2 (09:55→22:11)
[2018-07-21] MEDS: METHOCARBAMOL 500 MG TABLET PO PRN ×2 (09:55→22:11)
[2018-07-21] MEDS ORDERED: METHADONE HCL 10 MG TABLET (FOR DETOX USE ONLY) PO ONE (10:00)
--- NOTE | 2018-07-21 13:31 | PN ---
S CIWA - CIWA Score Nausea/Vomitin-No Nausea/No Vomiting Muscle Tremors: 3 Anxiety: 0-No Anxiety, at Ease Agitation: 1-Slight > Activity Paroxysmal Sweats: 3 Orientation: 0-Oriented Tacttile Disturbances: 0-None Auditory Disturbances: 2-Mild Harshness/Frighten Visual Disturbances: 1-Very Mild Sensitivity Headache: 0-None Present CIWA-Ar Total Score: 10 BHS COWS - Scale Resting Pulse: 1= [place] 81-100 Sweatin= Chills/Flushing Restless Observation: 1= Difficult to Sit Still Pupil Size: 0= Normal to Room Light Bone or Joint Aches: 2= Severe Diffuse Aches Runny Nose/ Eye Tearin= None GI Upset > 30mins: 0= None Tremor Observation of Outstretched Hands: 2= Slight Tremor Visible Yawning Observation: 1= 1-2x During Session Anxiety or Irritability: 2=Irritable/Anxious Goose Flesh Skin: 0=Smooth Skin COWS Score: 10 S Progress Note (SOAP) Subjective: Body Aches, Tremors, Sweating. Objective: PATIENT A & O X 3, OBSERVED AMBULATING ON UNIT. IN NO ACUTE DISTRESS. 07/21/18 13:31 Vital Signs Temperature 96.7 F L 07/21/18 09:27 Pulse Rate 87 07/21/18 09:27 Respiratory Rate 20 07/21/18 09:27 Blood Pressure 128/84 07/21/18 09:27 O2 Sat by Pulse Oximetry (%) Laboratory Tests 07/19/18 07/19/18 07/19/18 13:40 13:40 13:40 WBC 9.1 RBC 5.19 Hgb 15.5 Hct 45.7 D MCV 88.0 MCH 29.9 MCHC 33.9 RDW 14.1 Plt Count 297 D MPV 8.6 Sodium 140 Potassium 4.0 Chloride 106 Carbon Dioxide 24 Anion Gap 10 BUN 9 Creatinine 1.0 Creat Clearance w eGFR 88.34 Random Glucose 92 Calcium 9.1 Total Bilirubin 1.0 AST 10 L ALT 19 Alkaline Phosphatase 81 Total Protein 7.9 Albumin 4.2 RPR Titer Nonreactive LABS NOTED. Assessment: 07/21/18 13:32 WITHDRAWAL SYMPTOMS. Plan: CONTINUE DETOX. INCREASE DAILY PO FLUID INTAKE.
--- NOTE | 2018-07-21 15:56 | CONSULT ---
[facility] Psychiatric Consult - Data Date of interview: 07/21/18 Admission source: [facility] Identifying data: Readmission to [facility] for this 28 y/o male self- referred for detoxification treatment (alcohol, heroin,cannabis, xanax). Examined at [address] [place] [address]. Patient is single without children, domiciled (lives with his parents) and holding a job at this time. Substance Abuse History: Confirmed by the patient in my interview. Details in the following : Smoking history: Never smoked. Have you smoked in the past 12 months: No. Cigars Per Day: 0. Hx Chewing Tobacco Use: No. - Substances abused. Heroin. Substance route: Inhalation. Frequency: Daily. Amount used: 1 bundle. Age of first use: 21. Date of last use: 07/18/18 Medical History: Bronchial asthma. Psychiatric History: Patient denies. Physical/Sexual Abuse/Trauma History: Patient denies. Additional Comment: Urine drug screen results: THC-Marijuana, FEN-Fentanyl, MOP- Opiates, BZO-Benzodiazepines. Noted. Mental Status Exam - Mental Status Exam Alert and Oriented to: Time, Place, Person Cognitive Function: Good Patient Appearance: Well Groomed (tattoo noted on left elbow) Mood: Hopeful, Euthymic Affect: Appropriate, Normal Range Patient Behavior: Appropriate, Cooperative Speech Pattern: Clear, Appropriate Voice Loudness: Normal Thought Process: Intact, Goal Oriented Thought Disorder: Not Present Hallucinations: Denies Suicidal Ideation: Denies Homicidal Ideation: Denies Insight/Judgement: Poor Sleep: Poorly, Difficulty falling asleep Appetite: Good Muscle strength/Tone: Normal Gait/Station: Normal Psychiatric Findings - Problem List ([place] 1, 2,3) (1) Alcohol dependence with uncomplicated withdrawal Current Visit: Yes Status: Acute (2) Opioid dependence with withdrawal Current Visit: Yes Status: Acute (3) Cannabis dependence Current Visit: Yes Status: Chronic (4) Sedative, hypnotic or anxiolytic abuse Current Visit: Yes Status: Chronic (5) Insomnia Current Visit: Yes Status: Chronic - Initial Treatment Plan Initial Treatment Plan: Psychoeducation. Sleep hygiene. Detoxification. Relapse prevention (MAT) : discussed in this session. Support. Motivational counseling provided. AA/NA meetings. Groups. Trazodone 50 mg po hs. Side effects/benefits discussed with patient. Made aware of potential for priapism. No history of adverse events from trazodone (self-report). Consent (verbal) granted to MD. Shelley.
[2018-07-21] MEDS: traZODone HCL 50 MG TABLET (FP) PO SCH (22:08)
[2018-07-21] MEDS: MELATONIN 5 MG TABLETS PO PRN (22:08)
[2018-07-21] MEDS: THIAMINE HCL 100 MG TABLET (FP) PO SCH (22:08)
[2018-07-21] MEDS: ALBUTEROL SO4 8 GM HFA INHALER IH PRN (22:09)
[2018-07-22] MEDS: BETAMETHASONE DIPR 0.05% CREAM 15 GM TUBE TP SCH ×3 (05:12→22:16)
[2018-07-22] MEDS ORDERED: METHADONE HCL 10 MG TABLET (FOR DETOX USE ONLY) PO ONE (10:00)
[2018-07-22] MEDS: diazePAM 5 MG TABLET PO PRN (10:13)
[2018-07-22] MEDS: PRENATAL VITAMINS W/ FOLIC ACID TABLET (FP) PO SCH (10:13)
--- NOTE | 2018-07-22 10:35 | PN ---
[facility] CIWA - CIWA Score Nausea/Vomitin-No Nausea/No Vomiting Muscle Tremors: 1-None Visible, but [place] Anxiety: 1-Mildly Anxious Agitation: 1-Slight > Activity Paroxysmal Sweats: 1-Minimal Palms Moist Orientation: 0-Oriented Tacttile Disturbances: 0-None Auditory Disturbances: 0-None Visual Disturbances: 0-None Headache: 1-Very Mild CIWA-Ar Total Score: 5 BHS COWS - Scale Resting Pulse: 1= [place] 81-100 Sweatin= No chills or Flushing Restless Observation: 0= Sits Still Pupil Size: 0= Normal to Room Light Bone or Joint Aches: 1= Mild Discomfort Runny Nose/ Eye Tearin= Nasal Congestion GI Upset > 30mins: 0= None Tremor Observation of Outstretched Hands: 1= Tremor [place], Not Seen Yawning Observation: 0= None Anxiety or Irritability: 1=Feels Anxious/Irritable Goose Flesh Skin: 0=Smooth Skin COWS Score: 5 S Progress Note (SOAP) Subjective: feeling better social with peers in day room discuss aftercare with staff Objective: 07/22/18 10:34 Vital Signs Temperature 96.7 F L 07/22/18 09:21 Pulse Rate 88 07/22/18 09:21 Respiratory Rate 18 07/22/18 09:21 Blood Pressure 129/84 07/22/18 09:21 O2 Sat by Pulse Oximetry (%) Laboratory Last Values WBC 9.1 K/mm3 (4.0-10.0) 07/19/18 13:40 RBC 5.19 M/mm3 (4.00-5.60) 07/19/18 13:40 Hgb 15.5 GM/dL (11.7-16.9) 07/19/18 13:40 Hct 45.7 % (35.4-49) D 07/19/18 13:40 MCV 88.0 fl (80-96) 07/19/18 13:40 MCH 29.9 pg (25.7-33.7) 07/19/18 13:40 MCHC 33.9 g/dl (32.0-35.9) 07/19/18 13:40 RDW 14.1 % (11.9-15.9) 07/19/18 13:40 Plt Count 297 K/MM3 (134-434) D 07/19/18 13:40 MPV 8.6 fl (7.5-11.1) 07/19/18 13:40 Sodium 140 mmol/L (136-145) 07/19/18 13:40 Potassium 4.0 mmol/L (3.5-5.1) 07/19/18 13:40 Chloride 106 mmol/L (98-107) 07/19/18 13:40 Carbon Dioxide 24 mmol/L (21-32) 07/19/18 13:40 Anion Gap 10 MMOL/L (8-16) 07/19/18 13:40 BUN 9 mg/dL (7-18) 07/19/18 13:40 Creatinine 1.0 mg/dL (0.55-1.3) 07/19/18 13:40 Creat Clearance w eGFR 88.34 (>60) 07/19/18 13:40 Random Glucose 92 mg/dL (74-106) 07/19/18 13:40 Calcium 9.1 mg/dL (8.5-10.1) 07/19/18 13:40 Total Bilirubin 1.0 mg/dL (0.2-1) 07/19/18 13:40 AST 10 U/L (15-37) L 07/19/18 13:40 ALT 19 U/L (13-61) 07/19/18 13:40 Alkaline Phosphatase 81 U/L (45-117) 07/19/18 13:40 Total Protein 7.9 g/dl (6.4-8.2) 07/19/18 13:40 Albumin 4.2 g/dl (3.4-5.0) 07/19/18 13:40 RPR Titer Nonreactive (NONREACTIVE) 07/19/18 13:40 lab noted Assessment: 07/22/18 10:34 withdrawal sx Plan: continue detox
[2018-07-22] MEDS: METHOCARBAMOL 500 MG TABLET PO PRN ×2 (15:54→22:17)
[2018-07-22] MEDS: ALBUTEROL SO4 8 GM HFA INHALER IH PRN (17:28)
[2018-07-22] MEDS: THIAMINE HCL 100 MG TABLET (FP) PO SCH (22:16)
[2018-07-22] MEDS: traZODone HCL 50 MG TABLET (FP) PO SCH (22:16)
[2018-07-22] MEDS: MELATONIN 5 MG TABLETS PO PRN (22:16)
[2018-07-23] MEDS: BETAMETHASONE DIPR 0.05% CREAM 15 GM TUBE TP SCH (05:36)
[2018-07-23] MEDS ORDERED: METHADONE HCL 5 MG TABLET (FOR DETOX USE ONLY) PO ONE (06:00)
[2018-07-23] MEDS: ALBUTEROL SO4 8 GM HFA INHALER IH PRN (07:59)
[2018-07-23] MEDS: diazePAM 5 MG TABLET PO PRN (07:59)
[2018-07-23 09:02] VITALS: BP 120/84; PULSE 89; TEMP 96.5
--- NOTE | 2018-07-23 09:27 | PN ---
[facility] Progress Note Note: Patient is scheduled for discharge today. Script for 30 days supply of Seroquel 50 mg po HS is electronically transmitted to [facility] at [address] [place] [id number]
--- NOTE | 2018-07-23 11:38 | DS ---
[facility] Detox Discharge Summary Admission Date: 07/19/18 Discharge Date: 07/23/18 - History Present History: Alcohol Dependence, Opioid Dependence Additional Comments: 28 years old male admitted on 07/19/18 for alcohol and opiate withdrawal stabilization completed detox regimen aftercare [facility] Pertinent Past History: encourage the patient to use [facility] health services - Physical Exam Results Vital Signs: Vital Signs Temperature 96.5 F L 07/23/18 09:01 Pulse Rate 89 07/23/18 09:01 Respiratory Rate 18 07/23/18 09:01 Blood Pressure 120/84 07/23/18 09:01 O2 Sat by Pulse Oximetry (%) Pertinent Admission Physical Exam Findings: alcohol and opiate withdrawal sx Laboratory Last Values WBC 9.1 K/mm3 (4.0-10.0) 07/19/18 13:40 RBC 5.19 M/mm3 (4.00-5.60) 07/19/18 13:40 Hgb 15.5 GM/dL (11.7-16.9) 07/19/18 13:40 Hct 45.7 % (35.4-49) D 07/19/18 13:40 MCV 88.0 fl (80-96) 07/19/18 13:40 MCH 29.9 pg (25.7-33.7) 07/19/18 13:40 MCHC 33.9 g/dl (32.0-35.9) 07/19/18 13:40 RDW 14.1 % (11.9-15.9) 07/19/18 13:40 Plt Count 297 K/MM3 (134-434) D 07/19/18 13:40 MPV 8.6 fl (7.5-11.1) 07/19/18 13:40 Sodium 140 mmol/L (136-145) 07/19/18 13:40 Potassium 4.0 mmol/L (3.5-5.1) 07/19/18 13:40 Chloride 106 mmol/L (98-107) 07/19/18 13:40 Carbon Dioxide 24 mmol/L (21-32) 07/19/18 13:40 Anion Gap 10 MMOL/L (8-16) 07/19/18 13:40 BUN 9 mg/dL (7-18) 07/19/18 13:40 Creatinine 1.0 mg/dL (0.55-1.3) 07/19/18 13:40 Creat Clearance w eGFR 88.34 (>60) 07/19/18 13:40 Random Glucose 92 mg/dL (74-106) 07/19/18 13:40 Calcium 9.1 mg/dL (8.5-10.1) 07/19/18 13:40 Total Bilirubin 1.0 mg/dL (0.2-1) 07/19/18 13:40 AST 10 U/L (15-37) L 07/19/18 13:40 ALT 19 U/L (13-61) 07/19/18 13:40 Alkaline Phosphatase 81 U/L (45-117) 07/19/18 13:40 Total Protein 7.9 g/dl (6.4-8.2) 07/19/18 13:40 Albumin 4.2 g/dl (3.4-5.0) 07/19/18 13:40 RPR Titer Nonreactive (NONREACTIVE) 07/19/18 13:40 lab noted - Treatment Hospital Course: Detox Protocol Followed, Detoxed Safely, Responded well, Discharged Condition Good, Rehab Referral Accepted Patient has Accepted a Rehab Referral to: community walk-in clinic - Medication Discharge Medications: Ambulatory Orders Albuterol 0.083% Nebulizer [place] [Ventolin 0.083% Nebulizer Soln -] 1 neb NEB Q6H PRN 01/27/18 Albuterol Sulfate Inhaler - [Ventolin HFA Inhaler -] 2 inh IH QID 01/27/18 Betamethasone Dipropionate [Diprosone 0.05% Cream -] 1 applic TP TID 01/27/18 traZODone HCL [Trazodone HCl] 50 mg PO HS #30 tablet 02/06/18 traZODone HCL [Desyrel -] 50 mg PO HS #30 tablet 07/23/18 - Diagnosis (1) Asthma Status: Chronic Qualifiers: Asthma severity: mild Asthma persistence: intermittent Asthma complication type: with status asthmaticus Qualified Code(s): J45.22 - Mild intermittent asthma with status asthmaticus (2) Alcohol dependence with uncomplicated withdrawal Status: Acute (3) Opioid dependence with withdrawal Status: Acute (4) Eczema Status: Chronic Qualifiers: Eczema type: unspecified Qualified Code(s): L30.9 - Dermatitis, unspecified - AMA Did Patient Leave Against Medical Advice: No
== END 2018-07-23 10:00 | disposition home or self-care (01) | DRG 773 ==
LOC: YASAS 10:47 → Y3N 13:49
PROVIDERS: ADMIT Surgery; ATTEND Surgery
PROC: HZ2ZZZZ Detoxification Services for Substance Abuse Treatment (ICD-10-PCS; principal; 2018-07-19)
DX: F10.230 Alcohol dependence with withdrawal, uncomplicated (principal); F11.23 Opioid dependence with withdrawal; F13.230 Sedative, hypnotic or anxiolytic dependence with withdrawal, uncomplicated; F14.20 Cocaine dependence, uncomplicated; F12.20 Cannabis dependence, uncomplicated; F32.9 Major depressive disorder, single episode, unspecified; J45.22 Mild intermittent asthma with status asthmaticus; G47.00 Insomnia, unspecified; L30.9 Dermatitis, unspecified; M62.838 Other muscle spasm
CPT/HCPCS: 36415; 80053; 85027; 86593; 93005; 93010

== ENCOUNTER 2018-08-20 14:51 | Inpatient (IN) | payer OTHER ==
[2018-08-20 16:10] VITALS: BMI 33.3
--- NOTE | 2018-08-20 17:16 | HP ---
COWS - Scale Resting Pulse: 1= [place] 81-100 Sweatin=Flushed/Facial Moisture Restless Observation: 1= Difficult to Sit Still Pupil Size: 2= Moderately Dilated (Pupils = 4 mm) Bone or Joint Aches: 1= Mild Discomfort Runny Nose/ Eye Tearin= Runny Nose/Eyes GI Upset > 30mins: 0= None Tremor Observation: 2= Slight Tremor Visible Yawning Observation: 1= 1-2x During Session Anxiety or Irritability: 2=Irritable/Anxious Goose Flesh Skin: 0=Smooth Skin COWS Score: 14 CIWA Score Nausea/Vomitin-No Nausea/No Vomiting Muscle Tremors: 3 Anxiety: 2 Agitation: 2 Paroxysmal Sweats: 3 Orientation: 0-Oriented Tacttile Disturbances: 0-None Auditory Disturbances: 0-None Visual Disturbances: 0-None Headache: 0-None Present CIWA-Ar Total Score: 10 - Admission Criteria [facility]ASAS Guidelines: Admission for Medically Managed Detox: Requires at least one of the followin. CIWA greater than 12 2. Seizures within the past 24 hours 3. Delirium tremens within the past 24 hours 4. Hallucinations within the past 24 hours 5. Acute intervention needed for co occurring medical disorder 6. Acute intervention needed for co occurring psychiatric disorder 7. Severe withdrawal that cannot be handled at a lower level of care (continued vomiting, continued diarrhea, abnormal vital signs) requiring intravenous medication and/or fluids 8. Patient presents the following: Acute intervention needed for co-occurring med or psych disorder (ILA 0.034 and co-occurring opiate use disorder) Admission Criteria Met: Admission criteria met Admission ROS [facility] Chief Complaint: Having for heroin, alcohol and benzo withdrawal. I need detox. Allergies/Adverse Reactions: Allergies Allergy/AdvReac Type Severity Reaction Status Date / Time No Known Allergies Allergy Verified 08/20/18 15:37 History of Present Illness: Patient requesting detox from alcohol and opiates. Heroin use began at age 21: 1 bundle /day . Denies overdoses. Has a Narcan Kit at home Alcohol use began at age 12. Current use is 3-40 oz beers. Cocaine - denies use despite positive toxicology Cannabis use began at age 12. 5 blunts/day Klonopin use began at age 21. States 1-2 mg/day Denies seizures, blackouts, overdose. States sober for 2 weeks after 07/19/18 discharge. EKG @ [facility] on 07/19/18 - NSR/Normal ECG PMHX : Asthma, eczema MMHx: Insomnia, Denies thoughts of harming self or others Patient Name: Damon Omer Date: 1990 Address: [address] [place] [address] Sex: Male Rx Written Rx Dispensed Drug Quantity Days Supply Prescriber Name 09/28/2017 09/28/2017 codeine-guaifen 10-100 mg/5 ml 45ml 9 Miller, Dori M Exam Limitations: No Limitations - Ebola screening Have you traveled outside of the country in the last 21 days: No Have you had contact with anyone from an Ebola affected area: No Have you been sick,other than usual withdrawal symptoms: No (No recent exposure to measles) Do you have a fever: No - Review of Systems Constitutional: Chills, Diaphoresis, Changes in sleep (Difficulty falling and staying asleep - takes trazodone) EENT: reports: Nose Congestion Respiratory: reports: Cough, Wheezing Cardiac: reports: No Symptoms Reported GI: reports: Indigestion (occ herat burn w/ alcohol intake) : reports: No Symptoms Reported Musculoskeletal: reports: Back Pain (pain in lower back, thinks r/t withdrawal) Integumentary: reports: Rash (Eczema- elbows and stomach) Neuro: reports: Tremors Endocrine: reports: No Symptoms Reported Hematology: reports: No Symptoms Reported Psychiatric: reports: Judgement Intact, Orientated x3, Agitated, Anxious Patient History - Patient Medical History Hx Asthma: Yes (on meds) Hx Chronic Obstructive Pulmonary Disease (COPD): No Hx Cancer: No Hx Cardiac Disorders: No Hx Hypertension: No Hx Hypercholesterolemia: No Hx Pacemaker: No HX Cerebrovascular Accident: No Hx Seizures: No Hx Dementia: No Hx Diabetes: No Hx Gastrointestinal Disorders: No Hx Liver Disease: No Hx Genitourinary Disorders: No Hx Sexually Transmitted Disorders: No Hx Renal Disease (ESRD): No Hx Thyroid Disease: No Hx Human Immunodeficiency Virus (HIV): No (last in 2014 negative) Hx Hepatitis C: No Hx Depression: Yes (feels stress, insomnia) Hx Suicide Attempt: No Hx Bipolar Disorder: No Hx Schizophrenia: No - Patient Surgical History Past Surgical History: No Hx Neurologic Surgery: No Hx Cataract Extraction: No Hx Cardiac Surgery: No Hx Lung Surgery: No Hx Breast Surgery: No Hx Breast Biopsy: No Hx Abdominal Surgery: No Hx Appendectomy: No Hx Cholecystectomy: No Hx Genitourinary Surgery: No Hx Section: No Hx Orthopedic Surgery: No Anesthesia Reaction: No - PPD History Previous Implant?: Yes Documented Results: Negative w/proof Implanted On Prior [facility] Admission?: Yes Date: 07/21/18 Results: 0mm PPD to be Administered?: No - Smoking Cessation Smoking history: Never smoked Have you smoked in the past 12 months: No Cigars Per Day: 0 Hx Chewing Tobacco Use: No Initiated information on smoking cessation: No - Substance & Tx. History Hx Alcohol Use: Yes Hx Substance Use: Yes Substance Use Type: Alcohol, Heroin, Marijuana Hx Substance Use Treatment: Yes (detox, rehab) - Substances abused Heroin Substance route: Inhalation Frequency: Daily Amount used: 1 bundle Age of first use: 21 Date of last use: 08/20/18 Alcohol Substance route: Oral Frequency: Daily Amount used: 3) 40oz of beer Age of first use: 12 Date of last use: 08/20/18 Other Other (specify): klonopin Substance route: Oral Frequency: Daily Amount used: 2) 1mg Age of first use: Date of last use: 08/20/18 Marijuana/Hashish Substance route: Smoking Frequency: Daily Amount used: 3-4 blunts daily Age of first use: 12 Date of last use: 08/19/18 Family Disease History - Family Disease History Family Disease History: Heart Disease: Mother (living, htn,), Other: Father ( living,cirrhosis,etoh), Mother, Brother (two - healthy), Sister (two - healthy) Admission Physical Exam S - Vital Signs Vital Signs: Vital Signs - 24 hr 08/20/18 08/20/18 15:45 16:07 Temperature 97.5 F L 97.5 F L Pulse Rate 104 H 104 H Respiratory 19 19 Rate Blood Pressure 94/61 96/61 - Physical General Appearance: Yes: Nourished, Mild Distress, Tremorous, Sweating ( Increased facial moisture), Anxious HEENTM: Yes: EOMI (Jerking movement of eyes on (R) lateral gaze), Hearing grossly Normal, Normocephalic, Normal Voice, SAVANNAH (Pupils = 4 mm), Nasal Congestion, Other (Tonsils stage 2 - no lesions or exudate) Respiratory: Yes: Respiratory Distress, Wheezing Neck: Yes: No masses,lesions,Nodules, Supple Breast: Yes: Breast Exam Deferred Cardiology: Yes: Regular Rhythm, S1, S2, Tachycardia Abdominal: Yes: Non Tender, Soft, Protuberent (Increased abdominal adiposity) Genitourinary: Yes: Within Normal Limits Back: Yes: Normal Inspection Musculoskeletal: Yes: full range of Motion, Gait Steady Extremities: Yes: Normal Capillary Refill, Normal Range of Motion, Non-Tender, Tremors (Mild tremors of hands w/ arms extended) Neurological: Yes: engineering technical specialist II-XII NML intact (Jerking movement of eyes on (R) lateral gaze) Integumentary: Yes: Normal Color, Warm, Rash (Scaly rash on elbows (R) > (L)) Lymphatic: Yes: Within Normal Limits - Diagnostic (1) Uncomplicated alcohol dependence Current Visit: Yes Status: Chronic (2) Opioid dependence with withdrawal Current Visit: Yes Status: Acute (3) Asthma Current Visit: Yes Status: Chronic Qualifiers: Asthma severity: mild Asthma persistence: intermittent Asthma complication type: with status asthmaticus Qualified Code(s): J45.22 - Mild intermittent asthma with status asthmaticus (4) Cannabis dependence Current Visit: Yes Status: Chronic (5) Eczema Current Visit: Yes Status: Chronic Qualifiers: Eczema type: unspecified Qualified Code(s): L30.9 - Dermatitis, unspecified (6) Sedative, hypnotic or anxiolytic abuse Current Visit: Yes Status: Chronic (7) Insomnia Current Visit: Yes Status: Chronic Qualifiers: Insomnia type: unspecified Qualified Code(s): G47.00 - Insomnia, unspecified Cleared for Admission [facility] - Detox or Rehab [facility] Level of Care: Medically Managed Detox Regimen/Protocol: Methadone/Valium Claeared for Rehab Admission: No Breathalyzer - Breathalyzer Breathalyzer: 0.034 Urine Drug Screen - Test Device Lot number: [id number] Expiration date: 05/10/20 - Control Is test valid?: Yes - Results Drug screen NEGATIVE: No Urine drug screen results: THC-Marijuana, FEN-Fentanyl, MOP-Opiates, OXY- Oxycodone, BZO-Benzodiazepines Inpatient Rehab Admission - Rehab Decision to Admit Inpatient rehab admission?: No
[2018-08-20] MEDS ORDERED: MAGNESIUM CITRATE 300 ML BOTTLE PO PRN (18:05)
[2018-08-20] MEDS ORDERED: IBUPROFEN 400 MG TABLET (FP) PO PRN (18:05)
[2018-08-20] MEDS ORDERED: cloNIDine HCL 0.1 MG TABLET PO PRN (18:05)
[2018-08-20] MEDS ORDERED: PROCHLORPERAZINE MALEATE 5 MG TABLET PO PRN (18:05)
[2018-08-20] MEDS ORDERED: BISMUTH SUBSALICYLATE 524 MG/30 ML UD PO PRN (18:05)
[2018-08-20] MEDS ORDERED: MAG HYDROX/AL HYDROX/SIMETH 30 ML UNIT-DOSE CUP PO PRN (18:05)
[2018-08-20] MEDS ORDERED: MENTHOL/PHENOL 1 EACH UD MM PRN (18:05)
[2018-08-20] MEDS ORDERED: MAGNESIUM HYDROX 2400MG/30ML ORAL SUSPENSION 30 ML CUP PO PRN (18:05)
[2018-08-20] MEDS ORDERED: NALOXONE HCL 0.4 MG/ML VIAL IVPUSH PRN (18:05)
[2018-08-20] MEDS ORDERED: ACETAMINOPHEN 325 MG TABLET (FP) PO PRN ×2 (18:05)
[2018-08-20] MEDS: guaiFENesin 200 MG/10 ML 10 ML UNIT-DOSE CUPS PO SCH ×2 (18:49→23:35)
[2018-08-20] MEDS: diazePAM 5 MG TABLET PO PRN (18:50)
[2018-08-20] MEDS ORDERED: METHADONE HCL 10 MG TABLET (FOR DETOX USE ONLY) PO ONE ×2 (19:00→23:00)
[2018-08-20] MEDS: traZODone HCL 50 MG TABLET (FP) PO SCH (22:14)
[2018-08-20] MEDS: THIAMINE HCL 100 MG TABLET (FP) PO SCH (22:14)
[2018-08-20] MEDS: diazePAM 5 MG TABLET PO SCH (22:14)
[2018-08-20] MEDS: MELATONIN 5 MG TABLETS PO PRN (22:15)
[2018-08-20] MEDS: ALBUTEROL SO4 0.083% IH SOL 2.5 MG/3 ML VIAL.NEB. NEB PRN (22:38)
[2018-08-20] MEDS: BETAMETHASONE DIPR 0.05% CREAM 15 GM TUBE TP SCH (22:39)
[2018-08-21 00:54] LABS: PH,URINE 5.5 (5.0-8.0); URINE APPEARANCE CLEAR; URINE BILIRUBIN NEGATIVE (NEGATIVE); URINE COLOR YELLOW; URINE GLUCOSE (UA) NEGATIVE (NEGATIVE); URINE KETONE NEGATIVE (NEGATIVE); URINE LEUK ESTERASE NEGATIVE (NEGATIVE); URINE NITRITE NEGATIVE (NEGATIVE); URINE PROTEIN NEGATIVE (NEGATIVE); URINE UROBILINOGEN 0.2 mg/dL (0.2-1.0)
[2018-08-21] MEDS: ALBUTEROL SO4 0.083% IH SOL 2.5 MG/3 ML VIAL.NEB. NEB PRN ×2 (05:10→17:47)
[2018-08-21] MEDS: diazePAM 5 MG TABLET PO SCH ×3 (05:10→22:16)
[2018-08-21] MEDS: BETAMETHASONE DIPR 0.05% CREAM 15 GM TUBE TP SCH ×3 (08:21→22:23)
[2018-08-21] MEDS: guaiFENesin 200 MG/10 ML 10 ML UNIT-DOSE CUPS PO SCH ×3 (08:22→17:46)
[2018-08-21] MEDS ORDERED: METHADONE HCL 10 MG TABLET (FOR DETOX USE ONLY) PO ONE (10:00)
[2018-08-21] MEDS: PRENATAL VITAMINS W/ FOLIC ACID TABLET (FP) PO SCH (10:42)
[2018-08-21] MEDS: diazePAM 5 MG TABLET PO PRN (10:42)
--- NOTE | 2018-08-21 11:11 | PN ---
[facility] CIWA - CIWA Score Nausea/Vomitin-Mild Nausea/No Vomiting Muscle Tremors: 3 Anxiety: 3 Agitation: 2 Paroxysmal Sweats: 1-Minimal Palms Moist Orientation: 0-Oriented Tacttile Disturbances: 0-None Auditory Disturbances: 0-None Visual Disturbances: 0-None Headache: 0-None Present CIWA-Ar Total Score: 10 S COWS - Scale Resting Pulse: 1= [place] 81-100 Sweatin= Chills/Flushing Restless Observation: 1= Difficult to Sit Still Pupil Size: 0= Normal to Room Light Bone or Joint Aches: 1= Mild Discomfort Runny Nose/ Eye Tearin= Nasal Congestion GI Upset > 30mins: 2= Nausea/Diarrhea (no diarrhea) Tremor Observation of Outstretched Hands: 1= Tremor [place], Not Seen Yawning Observation: 1= 1-2x During Session Anxiety or Irritability: 1=Feels Anxious/Irritable Goose Flesh Skin: 0=Smooth Skin COWS Score: 10 [facility] Progress Note (SOAP) Subjective: trouble sleep at night body aches tremor Objective: 08/21/18 11:10 Vital Signs Temperature 97.3 F L 08/21/18 09:29 Pulse Rate 88 08/21/18 09:29 Respiratory Rate 18 08/21/18 09:29 Blood Pressure 120/88 08/21/18 09:29 O2 Sat by Pulse Oximetry (%) Laboratory Last Values Urine Color Yellow 08/20/18 23:57 Urine Appearance Clear 08/20/18 23:57 Urine pH 5.5 (5.0-8.0) 08/20/18 23:57 Ur Specific [place] 1.005 (1.010-1.035) L 08/20/18 23:57 Urine Protein Negative (NEGATIVE) 08/20/18 23:57 Urine Glucose (UA) Negative (NEGATIVE) 08/20/18 23:57 Urine Ketones Negative (NEGATIVE) 08/20/18 23:57 Urine Blood Negative (NEGATIVE) 08/20/18 23:57 Urine Nitrite Negative (NEGATIVE) 08/20/18 23:57 Urine Bilirubin Negative (NEGATIVE) 08/20/18 23:57 Urine Urobilinogen 0.2 mg/dL (0.2-1.0) 08/20/18 23:57 Ur Leukocyte Esterase Negative (NEGATIVE) 08/20/18 23:57 08/21/18 11:10 lab pending Assessment: 08/21/18 11:11 alcohol and opiate withdrawal sx Plan: continue detox
[2018-08-21 12:24] LABS: HEMATOCRIT 42.3 % (35.4-49); HEMOGLOBIN 14.2 GM/dL (11.7-16.9); MCHC 33.7 g/dl (32.0-35.9); PLATELET COUNT 325 K/MM3 (134-434); RBC 4.91 M/mm3 (4.00-5.60); RDW 13.9 % (11.9-15.9); WHITE BLOOD COUNT 6.3 K/mm3 (4.0-10.0)
[2018-08-21 12:39] LABS: ALBUMIN 3.8 g/dl (3.4-5.0); BILIRUBIN,TOTAL 0.5 mg/dL (0.2-1); CREATININE 0.9 mg/dL (0.55-1.3); POTASSIUM 4.1 mmol/L (3.5-5.1)
[2018-08-21] MEDS: METHOCARBAMOL 500 MG TABLET PO PRN ×2 (14:52→22:16)
[2018-08-21] MEDS: traZODone HCL 50 MG TABLET (FP) PO SCH (22:15)
[2018-08-21] MEDS: THIAMINE HCL 100 MG TABLET (FP) PO SCH (22:23)
[2018-08-22] MEDS: guaiFENesin 200 MG/10 ML 10 ML UNIT-DOSE CUPS PO SCH ×3 (01:18→14:11)
[2018-08-22] MEDS: ALBUTEROL SO4 0.083% IH SOL 2.5 MG/3 ML VIAL.NEB. NEB PRN ×2 (02:21→08:20)
[2018-08-22] MEDS: diazePAM 5 MG TABLET PO PRN ×2 (02:38→18:15)
[2018-08-22] MEDS: BETAMETHASONE DIPR 0.05% CREAM 15 GM TUBE TP SCH ×3 (06:50→22:27)
[2018-08-22] MEDS ORDERED: METHADONE HCL 10 MG TABLET (FOR DETOX USE ONLY) PO ONE (10:00)
[2018-08-22] MEDS: diazePAM 5 MG TABLET PO SCH ×2 (10:35→22:28)
[2018-08-22] MEDS: PRENATAL VITAMINS W/ FOLIC ACID TABLET (FP) PO SCH (10:35)
--- NOTE | 2018-08-22 13:43 | PN ---
[facility] CIWA - CIWA Score Nausea/Vomitin-No Nausea/No Vomiting Muscle Tremors: 1-None Visible, but [place] Anxiety: 3 Agitation: 2 Paroxysmal Sweats: No Perspiration Orientation: 0-Oriented Tacttile Disturbances: 0-None Auditory Disturbances: 0-None Visual Disturbances: 0-None Headache: 0-None Present CIWA-Ar Total Score: 6 S COWS - Scale Resting Pulse: 2= [place] 101-120 Sweatin= Chills/Flushing Restless Observation: 0= Sits Still Pupil Size: 0= Normal to Room Light Bone or Joint Aches: 1= Mild Discomfort Runny Nose/ Eye Tearin= None GI Upset > 30mins: 1= Stomach Cramp Tremor Observation of Outstretched Hands: 0= None Yawning Observation: 1= 1-2x During Session Anxiety or Irritability: 0= None Goose Flesh Skin: 0=Smooth Skin COWS Score: 6 [facility] Progress Note (SOAP) Subjective: feeling better social with peers in day room hesitating to discuss aftercare with staff Objective: 08/22/18 13:43 Vital Signs Temperature 97.5 F L 08/22/18 13:38 Pulse Rate 107 H 08/22/18 13:38 Respiratory Rate 18 08/22/18 13:38 Blood Pressure 122/82 08/22/18 13:38 O2 Sat by Pulse Oximetry (%) Laboratory Last Values WBC 6.3 K/mm3 (4.0-10.0) 08/21/18 07:30 RBC 4.91 M/mm3 (4.00-5.60) 08/21/18 07:30 Hgb 14.2 GM/dL (11.7-16.9) 08/21/18 07:30 Hct 42.3 % (35.4-49) 08/21/18 07:30 MCV 86.0 fl (80-96) 08/21/18 07:30 MCH 29.0 pg (25.7-33.7) 08/21/18 07:30 MCHC 33.7 g/dl (32.0-35.9) 08/21/18 07:30 RDW 13.9 % (11.9-15.9) 08/21/18 07:30 Plt Count 325 K/MM3 (134-434) 08/21/18 07:30 MPV 8.0 fl (7.5-11.1) 08/21/18 07:30 Sodium 139 mmol/L (136-145) 08/21/18 07:30 Potassium 4.1 mmol/L (3.5-5.1) 08/21/18 07:30 Chloride 105 mmol/L (98-107) 08/21/18 07:30 Carbon Dioxide 29 mmol/L (21-32) 08/21/18 07:30 Anion Gap 6 MMOL/L (8-16) L 08/21/18 07:30 BUN 13 mg/dL (7-18) 08/21/18 07:30 Creatinine 0.9 mg/dL (0.55-1.3) 08/21/18 07:30 Est GFR (CKD-EPI)AfAm 133.30 08/21/18 07:30 Est GFR (CKD-EPI)NonAf 115.01 08/21/18 07:30 Random Glucose 83 mg/dL (74-106) 08/21/18 07:30 Calcium 9.0 mg/dL (8.5-10.1) 08/21/18 07:30 Total Bilirubin 0.5 mg/dL (0.2-1) 08/21/18 07:30 AST 8 U/L (15-37) L 08/21/18 07:30 ALT 22 U/L (13-61) 08/21/18 07:30 Alkaline Phosphatase 74 U/L (45-117) 08/21/18 07:30 Total Protein 7.0 g/dl (6.4-8.2) 08/21/18 07:30 Albumin 3.8 g/dl (3.4-5.0) 08/21/18 07:30 Urine Color Yellow 08/20/18 23:57 Urine Appearance Clear 08/20/18 23:57 Urine pH 5.5 (5.0-8.0) 08/20/18 23:57 Ur Specific [place] 1.005 (1.010-1.035) L 08/20/18 23:57 Urine Protein Negative (NEGATIVE) 08/20/18 23:57 Urine Glucose (UA) Negative (NEGATIVE) 08/20/18 23:57 Urine Ketones Negative (NEGATIVE) 08/20/18 23:57 Urine Blood Negative (NEGATIVE) 08/20/18 23:57 Urine Nitrite Negative (NEGATIVE) 08/20/18 23:57 Urine Bilirubin Negative (NEGATIVE) 08/20/18 23:57 Urine Urobilinogen 0.2 mg/dL (0.2-1.0) 08/20/18 23:57 Ur Leukocyte Esterase Negative (NEGATIVE) 08/20/18 23:57 RPR Titer Nonreactive (NONREACTIVE) 08/21/18 07:30 lab noted Assessment: 08/22/18 13:43 alcohol benzo opiate withdrawal sx Plan: continue detox
[2018-08-22] MEDS: METHOCARBAMOL 500 MG TABLET PO PRN (18:16)
[2018-08-22] MEDS: THIAMINE HCL 100 MG TABLET (FP) PO SCH (22:27)
[2018-08-22] MEDS: traZODone HCL 50 MG TABLET (FP) PO SCH (22:27)
[2018-08-22] MEDS: MELATONIN 5 MG TABLETS PO PRN (22:28)
[2018-08-23] MEDS: ALBUTEROL SO4 0.083% IH SOL 2.5 MG/3 ML VIAL.NEB. NEB PRN ×2 (04:41→23:42)
[2018-08-23] MEDS ORDERED: diazePAM 5 MG TABLET PO SCH (06:00)
[2018-08-23] MEDS: BETAMETHASONE DIPR 0.05% CREAM 15 GM TUBE TP SCH ×3 (07:10→22:26)
[2018-08-23] MEDS ORDERED: METHADONE HCL 10 MG TABLET (FOR DETOX USE ONLY) PO ONE (10:00)
[2018-08-23] MEDS: diazePAM 5 MG TABLET PO PRN (10:11)
[2018-08-23] MEDS: PRENATAL VITAMINS W/ FOLIC ACID TABLET (FP) PO SCH (10:11)
[2018-08-23] MEDS ORDERED: METHADONE HCL 5 MG TABLET (FOR DETOX USE ONLY) PO ONE (10:35)
--- NOTE | 2018-08-23 14:40 | PN ---
[facility] CIWA - CIWA Score Nausea/Vomitin-No Nausea/No Vomiting Muscle Tremors: 1-None Visible, but [place] Anxiety: 1-Mildly Anxious Agitation: 1-Slight > Activity Paroxysmal Sweats: No Perspiration Orientation: 0-Oriented Tacttile Disturbances: 0-None Auditory Disturbances: 0-None Visual Disturbances: 0-None Headache: 0-None Present CIWA-Ar Total Score: 3 [facility] COWS - Scale Resting Pulse: 2= [place] 101-120 Sweatin= No chills or [place] Restless Observation: 0= Sits Still Pupil Size: 0= Normal to Room Light Bone or Joint Aches: 0= None Runny Nose/ Eye Tearin= None GI Upset > 30mins: 0= None Tremor Observation of Outstretched Hands: 1= Tremor [place], Not Seen Yawning Observation: 0= None Anxiety or Irritability: 1=Feels Anxious/Irritable Goose Flesh Skin: 0=Smooth Skin COWS Score: 4 [facility] Progress Note (SOAP) Subjective: feeling better sleep through the night social with peers in day room Objective: 08/23/18 14:39 Vital Signs Temperature 96.4 F L 08/23/18 09:47 Pulse Rate 101 H 08/23/18 09:47 Respiratory Rate 18 08/23/18 09:47 Blood Pressure 120/84 08/23/18 09:47 O2 Sat by Pulse Oximetry (%) Laboratory Last Values WBC 6.3 K/mm3 (4.0-10.0) 08/21/18 07:30 RBC 4.91 M/mm3 (4.00-5.60) 08/21/18 07:30 Hgb 14.2 GM/dL (11.7-16.9) 08/21/18 07:30 Hct 42.3 % (35.4-49) 08/21/18 07:30 MCV 86.0 fl (80-96) 08/21/18 07:30 MCH 29.0 pg (25.7-33.7) 08/21/18 07:30 MCHC 33.7 g/dl (32.0-35.9) 08/21/18 07:30 RDW 13.9 % (11.9-15.9) 08/21/18 07:30 Plt Count 325 K/MM3 (134-434) 08/21/18 07:30 MPV 8.0 fl (7.5-11.1) 08/21/18 07:30 Sodium 139 mmol/L (136-145) 08/21/18 07:30 Potassium 4.1 mmol/L (3.5-5.1) 08/21/18 07:30 Chloride 105 mmol/L (98-107) 08/21/18 07:30 Carbon Dioxide 29 mmol/L (21-32) 08/21/18 07:30 Anion Gap 6 MMOL/L (8-16) L 08/21/18 07:30 BUN 13 mg/dL (7-18) 08/21/18 07:30 Creatinine 0.9 mg/dL (0.55-1.3) 08/21/18 07:30 Est GFR (CKD-EPI)AfAm 133.30 08/21/18 07:30 Est GFR (CKD-EPI)NonAf 115.01 08/21/18 07:30 Random Glucose 83 mg/dL (74-106) 08/21/18 07:30 Calcium 9.0 mg/dL (8.5-10.1) 08/21/18 07:30 Total Bilirubin 0.5 mg/dL (0.2-1) 08/21/18 07:30 AST 8 U/L (15-37) L 08/21/18 07:30 ALT 22 U/L (13-61) 08/21/18 07:30 Alkaline Phosphatase 74 U/L (45-117) 08/21/18 07:30 Total Protein 7.0 g/dl (6.4-8.2) 08/21/18 07:30 Albumin 3.8 g/dl (3.4-5.0) 08/21/18 07:30 Urine Color Yellow 08/20/18 23:57 Urine Appearance Clear 08/20/18 23:57 Urine pH 5.5 (5.0-8.0) 08/20/18 23:57 Ur Specific [place] 1.005 (1.010-1.035) L 08/20/18 23:57 Urine Protein Negative (NEGATIVE) 08/20/18 23:57 Urine Glucose (UA) Negative (NEGATIVE) 08/20/18 23:57 Urine Ketones Negative (NEGATIVE) 08/20/18 23:57 Urine Blood Negative (NEGATIVE) 08/20/18 23:57 Urine Nitrite Negative (NEGATIVE) 08/20/18 23:57 Urine Bilirubin Negative (NEGATIVE) 08/20/18 23:57 Urine Urobilinogen 0.2 mg/dL (0.2-1.0) 08/20/18 23:57 Ur Leukocyte Esterase Negative (NEGATIVE) 08/20/18 23:57 RPR Titer Nonreactive (NONREACTIVE) 08/21/18 07:30 lab noted Assessment: 08/23/18 14:39 withdrawal sx Plan: continue detox
[2018-08-23] MEDS: MELATONIN 5 MG TABLETS PO PRN (22:26)
[2018-08-23] MEDS: THIAMINE HCL 100 MG TABLET (FP) PO SCH (22:26)
[2018-08-23] MEDS: traZODone HCL 50 MG TABLET (FP) PO SCH (22:26)
[2018-08-23] MEDS: METHOCARBAMOL 500 MG TABLET PO PRN (22:30)
[2018-08-24] MEDS: BETAMETHASONE DIPR 0.05% CREAM 15 GM TUBE TP SCH ×2 (05:43→15:01)
[2018-08-24] MEDS: ALBUTEROL SO4 0.083% IH SOL 2.5 MG/3 ML VIAL.NEB. NEB PRN (08:07)
[2018-08-24] MEDS ORDERED: METHADONE HCL 5 MG TABLET (FOR DETOX USE ONLY) PO ONE (10:00)
--- NOTE | 2018-08-24 10:26 | DS ---
[facility] Detox Discharge Summary Admission Date: 08/20/18 Discharge Date: 08/24/18 - History Present History: Cocaine Dependence, Opioid Dependence Pertinent Past History: Admitted for heroin, alcohol and benzo withdrawal. Pt completed detox protocols - tolerated well. Pt going to rehab today to [facility]. All Active Problems Opioid dependence with withdrawal (Acute) Asthma (Chronic) Cannabis dependence (Chronic) Eczema (Chronic) Insomnia (Chronic) Sedative, hypnotic or anxiolytic abuse (Chronic) Uncomplicated alcohol dependence (Chronic) Alcohol dependence with uncomplicated withdrawal (Acute) Sedative, hypnotic or anxiolytic dependence with withdrawal, uncomplicated ( Acute) Substance-induced sleep disorder (Acute) Asthma in adult (Chronic) Cocaine dependence (Chronic) - Physical Exam Results Vital Signs: Vital Signs Temperature 97.4 F L 08/24/18 09:41 Pulse Rate 96 H 08/24/18 09:41 Respiratory Rate 18 08/24/18 09:41 Blood Pressure 117/78 08/24/18 09:41 O2 Sat by Pulse Oximetry (%) - Treatment Hospital Course: Detox Protocol Followed, Detoxed Safely, Responded well, Discharged Condition Good, Rehab Referral Accepted Patient has Accepted a Rehab Referral to: [facility] - Medication Discharge Medications: Ambulatory Orders Albuterol 0.083% Nebulizer [place] [Ventolin 0.083% Nebulizer Soln -] 1 neb NEB Q6H PRN 01/27/18 Albuterol Sulfate Inhaler - [Ventolin HFA Inhaler -] 2 inh IH QID 01/27/18 Betamethasone Dipropionate [Diprosone 0.05% Cream -] 1 applic TP TID 01/27/18 traZODone HCL [Trazodone HCl] 50 mg PO HS #30 tablet 02/06/18 - Diagnosis (1) Opioid dependence with withdrawal Current Visit: Yes Status: Acute (2) Asthma Current Visit: Yes Status: Chronic Qualifiers: Asthma severity: mild Asthma persistence: intermittent Asthma complication type: with status asthmaticus Qualified Code(s): J45.22 - Mild intermittent asthma with status asthmaticus (3) Sedative, hypnotic or anxiolytic abuse Current Visit: Yes Status: Chronic (4) Uncomplicated alcohol dependence Current Visit: Yes Status: Chronic (5) Alcohol dependence with uncomplicated withdrawal Current Visit: No Status: Acute - AMA Did Patient Leave Against Medical Advice: No
[2018-08-24] MEDS: PRENATAL VITAMINS W/ FOLIC ACID TABLET (FP) PO SCH (10:46)
[2018-08-24] MEDS: METHOCARBAMOL 500 MG TABLET PO PRN (10:49)
[2018-08-24 13:14] VITALS: BP 124/79; PULSE 109; TEMP 97.3
--- NOTE | 2018-08-24 13:33 | PN ---
S Progress Note Note: pt will not be discharged today- planned for tomorrow
[2018-08-25] MEDS ORDERED: METHADONE HCL 5 MG TABLET PO SCH (06:00)
== END 2018-08-24 17:00 | disposition home or self-care (01) | DRG 773 ==
LOC: YASAS 14:51 → Y3N 18:03
PROVIDERS: ADMIT Surgery; ATTEND Surgery
PROC: HZ2ZZZZ Detoxification Services for Substance Abuse Treatment (ICD-10-PCS; principal; 2018-08-20)
DX: F11.23 Opioid dependence with withdrawal (principal); F10.230 Alcohol dependence with withdrawal, uncomplicated; F13.20 Sedative, hypnotic or anxiolytic dependence, uncomplicated; F12.20 Cannabis dependence, uncomplicated; J45.22 Mild intermittent asthma with status asthmaticus; L30.9 Dermatitis, unspecified; G47.00 Insomnia, unspecified; R00.0 Tachycardia, unspecified
CPT/HCPCS: 36415; 80053; 81003; 85027; 86593; 94640

== ENCOUNTER 2019-01-29 15:34 | Inpatient (IN) | payer OTHER ==
[2019-01-29 16:51] VITALS: BMI 32.2
--- NOTE | 2019-01-29 19:46 | HP ---
COWS - Scale Resting Pulse: 1= [place] 81-100 Sweatin= Chills/Flushing Restless Observation: 1= Difficult to Sit Still Pupil Size: 0= Normal to Room Light Bone or Joint Aches: 1= Mild Discomfort Runny Nose/ Eye Tearin= Runny Nose/Eyes GI Upset > 30mins: 2= Nausea/Diarrhea Tremor Observation: 1= Tremor [place], Not Seen Yawning Observation: 0= None Anxiety or Irritability: 1=Feels Anxious/Irritable Goose Flesh Skin: 0=Smooth Skin COWS Score: 10 CIWA Score Nausea/Vomitin-No Nausea/No Vomiting Muscle Tremors: None Anxiety: 3 Agitation: 1-Slight > Activity Paroxysmal Sweats: 2 Orientation: 1-Uncertain about Date Tacttile Disturbances: 0-None Auditory Disturbances: 0-None Visual Disturbances: 0-None Headache: 0-None Present CIWA-Ar Total Score: 7 - Admission Criteria OASAS Guidelines: Admission for Medically Managed Detox: Requires at least one of the followin. CIWA greater than 12 2. Seizures within the past 24 hours 3. Delirium tremens within the past 24 hours 4. Hallucinations within the past 24 hours 5. Acute intervention needed for co occurring medical disorder 6. Acute intervention needed for co occurring psychiatric disorder 7. Severe withdrawal that cannot be handled at a lower level of care (continued vomiting, continued diarrhea, abnormal vital signs) requiring intravenous medication and/or fluids 8. Admitting History and Physical - Smoking History Smoking history: Never smoked Have you smoked in the past 12 months: No - Alcohol/Substance Use Hx Alcohol Use: Yes Admission [facility] Allergies/Adverse Reactions: Allergies Allergy/AdvReac Type Severity Reaction Status Date / Time No Known Allergies Allergy Verified 01/29/19 16:33 History of Present Illness: pt here requesting detox from etoh and opiate use , reports 3 x 40- oz beer daily , starts drinking in the mornings , reports relapse 1-2 months ago , prior sobriety after rehab August 2018 , was in otp program October 2018 , sober x 1 month then relapsed. Pt reports tremors if not drinking , denies seizures or blackouts , denies falls . Latest use 2 pm today . heroin: 15 bags IV since 1 mo ago , first age of use 22 , current symptoms as above, latest use today 11 am cocaine : admits to occasional use , latest 1 week ago . cannabis : 5-6 blunts/day tobacco : 1/2 ppd since 2 mo ago benzo : 2 weeks ago PMHX : asthma no legal isses, lives w/ SO no YANNA Exam Limitations: No Limitations - Ebola screening Have you traveled outside of the country in the last 21 days: No Have you had contact with anyone from an Ebola affected area: No - Review of Systems Constitutional: See HPI, Loss of Appetite EENT: reports: See HPI Respiratory: reports: See HPI Cardiac: reports: No Symptoms Reported GI: reports: See HPI : reports: No Symptoms Reported Musculoskeletal: reports: See HPI Integumentary: reports: See HPI, Other (IVDU ib anika LE) Neuro: reports: No Symptoms reported Endocrine: reports: No Symptoms Reported Psychiatric: reports: Orientated x3, Agitated, Anxious Patient History - Patient Medical History Hx Asthma: Yes (on meds) Hx Chronic Obstructive Pulmonary Disease (COPD): No Hx Cancer: No Hx Cardiac Disorders: No Hx Hypertension: No Hx Hypercholesterolemia: No Hx Pacemaker: No HX Cerebrovascular Accident: No Hx Seizures: No Hx Dementia: No Hx Diabetes: No Hx Gastrointestinal Disorders: No Hx Liver Disease: No Hx Genitourinary Disorders: No Hx Sexually Transmitted Disorders: No Hx Renal Disease (ESRD): No Hx Thyroid Disease: No Hx Human Immunodeficiency Virus (HIV): No (last in 2014 negative) Hx Hepatitis C: No Hx Depression: Yes (feels stress, insomnia) Hx Suicide Attempt: No Hx Bipolar Disorder: No Hx Schizophrenia: No - Patient Surgical History Past Surgical History: No Hx Neurologic Surgery: No Hx Cataract Extraction: No Hx Cardiac Surgery: No Hx Lung Surgery: No Hx Breast Surgery: No Hx Breast Biopsy: No Hx Abdominal Surgery: No Hx Appendectomy: No Hx Cholecystectomy: No Hx Genitourinary Surgery: No Hx Section: No Hx Orthopedic Surgery: No Anesthesia Reaction: No - PPD History Date: 07/21/18 Results: 0mm - Smoking Cessation Smoking history: Never smoked Have you smoked in the past 12 months: No Cigars Per Day: 0 Hx Chewing Tobacco Use: No - Substances abused Heroin Substance route: Injection Frequency: Daily Amount used: 15 bags Age of first use: 21 Date of last use: 08/20/18 Alcohol Substance route: Oral Frequency: Daily Amount used: 3) 40oz of beer Age of first use: 12 Date of last use: 01/29/19 Other Other (specify): klonopin Substance route: Oral Frequency: Daily Amount used: 2) 1mg Age of first use: 21 Date of last use: 01/15/19 Marijuana/Hashish Substance route: Smoking Frequency: Daily Amount used: 3-4 blunts daily Age of first use: 12 Date of last use: 01/29/19 Admission Physical Exam [facility] - Vital Signs Vital Signs: Vital Signs - 24 hr 01/29/19 16:44 Temperature 98.0 F Pulse Rate 90 Respiratory 16 Rate Blood Pressure 131/70 - Physical General Appearance: Yes: Mild Distress, Anxious HEENTM: Yes: EOMI, Hearing grossly Normal, Normocephalic, Normal Voice Respiratory: Yes: Chest Non-Tender, No Respiratory Distress, No Accessory Muscle Use, Wheezing (scattered expiratory wheezing in bilateral lung simon), Other (pt states was seen in ER @ [facility] and was given meds 2 days ago , has meds w/ him) Neck: Yes: No masses,lesions,Nodules, Trachea in good position Cardiology: Yes: Regular Rhythm, Regular Rate, S1, S2, Tachycardia, Other (2018 QTc 457 ms) Abdominal: Yes: Non Tender, Soft Musculoskeletal: Yes: Gait Steady Extremities: Yes: Normal Range of Motion, Non-Tender Neurological: Yes: Fully Oriented, Alert, Motor Strength 5/5 Integumentary: Yes: Warm, Track [place] (anika UE antecubital , left forearm c/d/ i , anika hands c/d/ i) - Diagnostic (1) Nicotine use disorder Current Visit: Yes Status: Chronic (2) Alcohol dependence with uncomplicated withdrawal Current Visit: Yes Status: Acute (3) Opioid dependence with withdrawal Current Visit: Yes Status: Acute (4) Cannabis dependence Current Visit: Yes Status: Chronic Breathalyzer - Breathalyzer Breathalyzer: 0.007 Urine Drug Screen - Test Device Lot number: [id number] Expiration date: 05/10/20 - Control Is test valid?: Yes - Results Drug screen NEGATIVE: No Urine drug screen results: THC-Marijuana, FEN-Fentanyl, MOP-Opiates, OXY- Oxycodone, BZO-Benzodiazepines Inpatient Rehab Admission - Rehab Decision to Admit Inpatient rehab admission?: No
[2019-01-29] MEDS ORDERED: ALBUTEROL SO4 0.083% IH SOL 2.5 MG/3 ML VIAL.NEB. NEB PRN (19:55)
[2019-01-29] MEDS ORDERED: BISMUTH SUBSALICYLATE 524 MG/30 ML UD PO PRN (19:58)
[2019-01-29] MEDS ORDERED: MAGNESIUM HYDROX 2400MG/30ML ORAL SUSPENSION 30 ML CUP PO PRN (19:58)
[2019-01-29] MEDS ORDERED: METHOCARBAMOL 500 MG TABLET PO PRN (19:58)
[2019-01-29] MEDS ORDERED: MAGNESIUM CITRATE 300 ML BOTTLE PO PRN (19:58)
[2019-01-29] MEDS ORDERED: MAG HYDROX/AL HYDROX/SIMETH 30 ML UNIT-DOSE CUP PO PRN (19:58)
[2019-01-29] MEDS ORDERED: IBUPROFEN 400 MG TABLET (FP) PO PRN (19:58)
[2019-01-29] MEDS ORDERED: MENTHOL/PHENOL 1 EACH UD MM PRN (19:58)
[2019-01-29] MEDS ORDERED: ACETAMINOPHEN 325 MG TABLET (FP) PO PRN ×2 (19:58)
[2019-01-29] MEDS ORDERED: chlordiazePOXIDE HCL 10 MG CAPSULE PO PRN (20:02)
[2019-01-29] MEDS ORDERED: METHADONE HCL 10 MG TABLET (FOR DETOX USE ONLY) PO ONE (21:00)
[2019-01-29] MEDS ORDERED: chlordiazePOXIDE HCL 25 MG CAPSULE PO SCH (21:00)
[2019-01-29] MEDS: THIAMINE HCL 100 MG TABLET (FP) PO SCH (22:06)
[2019-01-29] MEDS: predniSONE 20 MG TABLET (UD) PO SCH (22:06)
[2019-01-29] MEDS: diazePAM 5 MG TABLET PO SCH (22:06)
[2019-01-29] MEDS: ALBUTEROL SO4 8 GM HFA INHALER IH SCH (22:08)
[2019-01-29] MEDS: MELATONIN 5 MG TABLETS PO PRN (22:09)
[2019-01-30] MEDS: predniSONE 20 MG TABLET (UD) PO SCH ×3 (05:24→22:09)
[2019-01-30] MEDS: diazePAM 5 MG TABLET PO SCH ×3 (05:24→22:09)
[2019-01-30] MEDS ORDERED: METHADONE HCL 5 MG TABLET (FOR DETOX USE ONLY) ONE (08:34)
[2019-01-30] MEDS ORDERED: METHADONE HCL 10 MG TABLET (FOR DETOX USE ONLY) ONE (08:34)
[2019-01-30] MEDS: AZITHROMYCIN 250 MG TABLET PO SCH (09:31)
[2019-01-30] MEDS: PRENATAL VITAMINS W/ FOLIC ACID TABLET (FP) PO SCH (09:33)
[2019-01-30] MEDS: diazePAM 5 MG TABLET PO PRN (09:35)
[2019-01-30] MEDS: ALBUTEROL SO4 8 GM HFA INHALER IH SCH ×2 (09:44→14:15)
[2019-01-30 09:45] LABS: HEMOGLOBIN 12.6 GM/dL (11.7-16.9); MCH 29.2 pg (25.7-33.7); MCHC 33.1 g/dl (32.0-35.9); MEAN CELL VOLUME 88.2 fl (80-96); MEAN PLT VOLUME 7.8 fl (7.5-11.1); PLATELET COUNT 401 K/MM3 (134-434); RBC 4.31 M/mm3 (4.00-5.60); RDW 13.7 % (11.9-15.9); WHITE BLOOD COUNT 11.4 K/mm3 (4.0-10.0)
[2019-01-30] MEDS ORDERED: METHADONE (DETOX) 20 MG, METHADONE (DETOX) 5 MG PO ONE (10:00)
[2019-01-30 10:28] LABS: ALBUMIN 3.7 g/dl (3.4-5.0); BILIRUBIN,TOTAL 0.3 mg/dL (0.2-1); BLOOD UREA NITROGEN 12.6 mg/dL (7-18); CALCIUM 9.5 mg/dL (8.5-10.1); CREATININE 0.8 mg/dL (0.55-1.3); POTASSIUM 4.8 mmol/L (3.5-5.1); TOT PROT 7.1 g/dl (6.4-8.2)
--- NOTE | 2019-01-30 14:04 | PN ---
[facility] CIWA - CIWA Score Nausea/Vomitin-Mild Nausea/No Vomiting Muscle Tremors: 2 Anxiety: 2 Agitation: 2 Paroxysmal Sweats: No Perspiration Orientation: 0-Oriented Tacttile Disturbances: 1-Very Mild Itch/Numbness Auditory Disturbances: 0-None Visual Disturbances: 0-None Headache: 2-Mild CIWA-Ar Total Score: 10 [facility] COWS - Scale Resting Pulse: 1= [place] 81-100 Sweatin= No chills or [place] Restless Observation: 1= Difficult to Sit Still Pupil Size: 1= Pupils >than Normal Bone or Joint Aches: 1= Mild Discomfort Runny Nose/ Eye Tearin= Runny Nose/Eyes GI Upset > 30mins: 1= Stomach Cramp Tremor Observation of Outstretched Hands: 2= Slight Tremor Visible Yawning Observation: 1= 1-2x During Session Anxiety or Irritability: 2=Irritable/Anxious Goose Flesh Skin: 0=Smooth Skin COWS Score: 12 S Progress Note (SOAP) Subjective: alert,irritable,anxious,interrupted sleep,pain in the body and pack,tremor Objective: 01/30/19 14:01 Vital Signs Temperature 97.4 F L 01/30/19 13:01 Pulse Rate 88 01/30/19 13:01 Respiratory Rate 18 01/30/19 13:01 Blood Pressure 124/83 01/30/19 13:01 O2 Sat by Pulse Oximetry (%) Laboratory Last Values WBC 11.4 K/mm3 (4.0-10.0) H 01/30/19 08:15 RBC 4.31 M/mm3 (4.00-5.60) 01/30/19 08:15 Hgb 12.6 GM/dL (11.7-16.9) 01/30/19 08:15 Hct 38.0 % (35.4-49) 01/30/19 08:15 MCV 88.2 fl (80-96) 01/30/19 08:15 MCH 29.2 pg (25.7-33.7) 01/30/19 08:15 MCHC 33.1 g/dl (32.0-35.9) 01/30/19 08:15 RDW 13.7 % (11.9-15.9) 01/30/19 08:15 Plt Count 401 K/MM3 (134-434) D 10/23/19 08:15 MPV 7.8 fl (7.5-11.1) 01/30/19 08:15 Sodium 138 mmol/L (136-145) 01/30/19 08:15 Potassium 4.8 mmol/L (3.5-5.1) 01/30/19 08:15 Chloride 103 mmol/L (98-107) 01/30/19 08:15 Carbon Dioxide 28 mmol/L (21-32) 01/30/19 08:15 Anion Gap 7 MMOL/L (8-16) L 01/30/19 08:15 BUN 12.6 mg/dL (7-18) 01/30/19 08:15 Creatinine 0.8 mg/dL (0.55-1.3) 01/30/19 08:15 Est GFR (CKD-EPI)AfAm 139.91 01/30/19 08:15 Est GFR (CKD-EPI)NonAf 120.72 01/30/19 08:15 Random Glucose 95 mg/dL (74-106) 01/30/19 08:15 Calcium 9.5 mg/dL (8.5-10.1) 01/30/19 08:15 Total Bilirubin 0.3 mg/dL (0.2-1) 01/30/19 08:15 AST 7 U/L (15-37) L 01/30/19 08:15 ALT 22 U/L (13-61) 01/30/19 08:15 Alkaline Phosphatase 65 U/L (45-117) 01/30/19 08:15 Total Protein 7.1 g/dl (6.4-8.2) 01/30/19 08:15 Albumin 3.7 g/dl (3.4-5.0) 01/30/19 08:15 RPR Titer Nonreactive (NONREACTIVE) 01/30/19 08:15 Assessment: 01/30/19 14:02 withdrawal symptom Plan: continue detox methadone and valium regimen,wbc 11,400,due to bronchitis,on zithromax,encourage oral fluid
--- NOTE | 2019-01-30 14:26 | PN ---
[facility] Progress Note Note: change albuterol inhal to prn
--- NOTE | 2019-01-30 16:08 | CONSULT ---
[facility] Psychiatric Consult - Data Date of interview: 01/30/19 Admission source: [facility] Identifying data: One of multiple admissions to [facility] for this 28 y/o male self-referred for detoxification treatment (alcohol, heroin, cannabis, xanax). Interviewed at [address] [place] [address]. Patient is single without children, domiciled (lives with his parents), unemployed and supported by relatives. Substance Abuse History: Discussed in this session. Details are concordant with current [facility] report as follows : Smoking history: Never smoked. Have you smoked in the past 12 months: No. Cigars Per Day: 0. Hx Chewing Tobacco Use: No. Substances abused. Heroin. Substance route: Injection. Frequency: Daily. Amount used: 15 bags. Age of first use: 21. Date of last use: 08/20/18. Alcohol. Substance route: Oral. Frequency: Daily. Amount used: 3) 40oz of beer. Age of first use: 12. Date of last use: 01/29/19. Other. Other ( specify): klonopin. Substance route: Oral. Frequency: Daily. Amount used: 2) 1mg. Age of first use: 21. Date of last use: 01/15/19. Marijuana/Hashish. Substance route: Smoking. Frequency: Daily. Amount used: 3-4 blunts daily. Age of first use: 12. Date of last use: 01/29/19 Medical History: Bronchial asthma Psychiatric History: Patient denies history of psychiatric hospitalizations, OPD care or suicide attempts. Mr Omer was prescribed seroquel at his most recent admission to [facility] rebhabilitation unit (few weeks ago). Physical/Sexual Abuse/Trauma History: Patient denies. Additional Comment: Urine drug screen results: THC-Marijuana, FEN-Fentanyl, MOP- Opiates, OXY-Oxycodone, BZO-Benzodiazepines. Noted. Mental Status Exam - Mental Status Exam Alert and Oriented to: Time, Place, Person Cognitive Function: Good Patient Appearance: Well Groomed Mood: Hopeful, Euthymic Affect: Appropriate, Normal Range Patient Behavior: Appropriate, Cooperative Speech Pattern: Clear, Appropriate Voice Loudness: Normal Thought Process: Intact, Goal Oriented Thought Disorder: Not Present Hallucinations: Denies Suicidal Ideation: Denies Homicidal Ideation: Denies Insight/Judgement: Poor Sleep: Poorly, Difficulty falling asleep Appetite: Good Muscle strength/Tone: Normal Gait/Station: Normal Psychiatric Findings - Problem List ([place] 1, 2,3) (1) Alcohol dependence with uncomplicated withdrawal Current Visit: Yes Status: Acute (2) Sedative, hypnotic or anxiolytic dependence with withdrawal, uncomplicated Current Visit: Yes Status: Acute (3) Opioid dependence with withdrawal Current Visit: Yes Status: Acute (4) Cannabis dependence Current Visit: Yes Status: Chronic (5) Nicotine use disorder Current Visit: Yes Status: Chronic (6) Insomnia Current Visit: Yes Status: Chronic Qualifiers: Insomnia type: unspecified Qualified Code(s): G47.00 - Insomnia, unspecified - Initial Treatment Plan Initial Treatment Plan: Psychoeducation. Sleep hygiene. Detoxification. Seroquel 50 mg po hs. Side effects/benefits discussed with patient. Mr Omer is in agreement with this plan of care. Gave verbal consent to Observation.
[2019-01-30] MEDS: THIAMINE HCL 100 MG TABLET (FP) PO SCH (22:09)
[2019-01-30] MEDS: ALBUTEROL SO4 8 GM HFA INHALER IH PRN (22:12)
[2019-01-30] MEDS: MELATONIN 5 MG TABLETS PO PRN (22:12)
[2019-01-31] MEDS ORDERED: chlordiazePOXIDE 5 MG CAPSULE PO SCH (05:00)
[2019-01-31] MEDS: diazePAM 5 MG TABLET PO SCH ×2 (05:06→17:34)
[2019-01-31] MEDS: predniSONE 20 MG TABLET (UD) PO SCH ×3 (05:06→22:08)
[2019-01-31] MEDS ORDERED: METHADONE HCL 10 MG TABLET (FOR DETOX USE ONLY) PO ONE (10:00)
[2019-01-31] MEDS: PRENATAL VITAMINS W/ FOLIC ACID TABLET (FP) PO SCH (10:26)
[2019-01-31] MEDS: AZITHROMYCIN 250 MG TABLET PO SCH (10:26)
[2019-01-31] MEDS: diazePAM 5 MG TABLET PO PRN (10:26)
--- NOTE | 2019-01-31 12:34 | PN ---
[facility] CIWA - CIWA Score Nausea/Vomitin-Mild Nausea/No Vomiting Muscle Tremors: 2 Anxiety: 2 Agitation: 2 Paroxysmal Sweats: 1-Minimal Palms Moist Orientation: 0-Oriented Tacttile Disturbances: 0-None Auditory Disturbances: 0-None Visual Disturbances: 0-None Headache: 1-Very Mild CIWA-Ar Total Score: 9 [facility] COWS - Scale Resting Pulse: 0= [place] 80 or Below Sweatin= Chills/Flushing Restless Observation: 0= Sits Still Pupil Size: 0= Normal to Room Light Bone or Joint Aches: 1= Mild Discomfort Runny Nose/ Eye Tearin= None GI Upset > 30mins: 2= Nausea/Diarrhea (no diarrhea) Tremor Observation of Outstretched Hands: 2= Slight Tremor Visible Yawning Observation: 1= 1-2x During Session Anxiety or Irritability: 2=Irritable/Anxious Goose Flesh Skin: 0=Smooth Skin COWS Score: 9 [facility] Progress Note (SOAP) Subjective: doing well with Valium and methadone detox regimen resting on bed comfortably discuss medication assisted treatment program Objective: 01/31/19 12:36 Vital Signs Temperature 96.9 F L 01/31/19 09:20 Pulse Rate 73 01/31/19 09:20 Respiratory Rate 18 01/31/19 09:20 Blood Pressure 121/78 01/31/19 09:20 O2 Sat by Pulse Oximetry (%) 98 01/30/19 10:01 Laboratory Last Values WBC 11.4 K/mm3 (4.0-10.0) H 01/30/19 08:15 RBC 4.31 M/mm3 (4.00-5.60) 01/30/19 08:15 Hgb 12.6 GM/dL (11.7-16.9) 01/30/19 08:15 Hct 38.0 % (35.4-49) 01/30/19 08:15 MCV 88.2 fl (80-96) 01/30/19 08:15 MCH 29.2 pg (25.7-33.7) 01/30/19 08:15 MCHC 33.1 g/dl (32.0-35.9) 01/30/19 08:15 RDW 13.7 % (11.9-15.9) 01/30/19 08:15 Plt Count 401 K/MM3 (134-434) D 01/30/19 08:15 MPV 7.8 fl (7.5-11.1) 01/30/19 08:15 Sodium 138 mmol/L (136-145) 01/30/19 08:15 Potassium 4.8 mmol/L (3.5-5.1) 01/30/19 08:15 Chloride 103 mmol/L (98-107) 01/30/19 08:15 Carbon Dioxide 28 mmol/L (21-32) 01/30/19 08:15 Anion Gap 7 MMOL/L (8-16) L 01/30/19 08:15 BUN 12.6 mg/dL (7-18) 01/30/19 08:15 Creatinine 0.8 mg/dL (0.55-1.3) 01/30/19 08:15 Est GFR (CKD-EPI)AfAm 139.91 01/30/19 08:15 Est GFR (CKD-EPI)NonAf 120.72 01/30/19 08:15 Random Glucose 95 mg/dL (74-106) 01/30/19 08:15 Calcium 9.5 mg/dL (8.5-10.1) 01/30/19 08:15 Total Bilirubin 0.3 mg/dL (0.2-1) 01/30/19 08:15 AST 7 U/L (15-37) L 01/30/19 08:15 ALT 22 U/L (13-61) 01/30/19 08:15 Alkaline Phosphatase 65 U/L (45-117) 01/30/19 08:15 Total Protein 7.1 g/dl (6.4-8.2) 01/30/19 08:15 Albumin 3.7 g/dl (3.4-5.0) 01/30/19 08:15 RPR Titer Nonreactive (NONREACTIVE) 01/30/19 08:15 lab noted Assessment: 01/31/19 12:37 alcohol and opiate withdrawal sx Plan: continue valium and methadone detox regimen
[2019-01-31] MEDS: THIAMINE HCL 100 MG TABLET (FP) PO SCH (22:08)
[2019-01-31] MEDS: MELATONIN 5 MG TABLETS PO PRN (22:09)
[2019-01-31] MEDS: ALBUTEROL SO4 8 GM HFA INHALER IH PRN (22:10)
[2019-02-01] MEDS ORDERED: chlordiazePOXIDE HCL 10 MG CAPSULE PO PRN
[2019-02-01] MEDS ORDERED: chlordiazePOXIDE HCL 10 MG CAPSULE PO SCH (05:00)
[2019-02-01] MEDS: ALBUTEROL SO4 8 GM HFA INHALER IH PRN (05:42)
[2019-02-01] MEDS ORDERED: diazePAM 5 MG TABLET PO ONE (06:00)
[2019-02-01] MEDS: predniSONE 20 MG TABLET (UD) PO SCH ×2 (06:21→13:28)
[2019-02-01] MEDS ORDERED: METHADONE HCL 10 MG TABLET (FOR DETOX USE ONLY) ONE (08:43)
[2019-02-01] MEDS ORDERED: METHADONE HCL 5 MG TABLET (FOR DETOX USE ONLY) ONE (08:44)
[2019-02-01 09:12] VITALS: BP 124/82; PULSE 85; TEMP 98.8
[2019-02-01] MEDS ORDERED: METHADONE (DETOX) 10 MG, METHADONE (DETOX) 5 MG PO ONE (10:00)
[2019-02-01] MEDS: PRENATAL VITAMINS W/ FOLIC ACID TABLET (FP) PO SCH (10:03)
[2019-02-01] MEDS: diazePAM 5 MG TABLET PO PRN (10:07)
--- NOTE | 2019-02-01 17:05 | DS ---
[facility] Detox Discharge Summary Admission Date: 01/29/19 Discharge Date: 02/01/19 - History Present History: Alcohol Dependence, Cannabis Dependence, Opioid Dependence, Sedative Dependence Additional Comments: DESPITE EFFORTS BY [employer] AND BY NURSING STAFF TO ADDRESS PATIENT'S MEDICAL NEEDS / CONCERNS, PATIENT DOES NOT WISH TO REMAIN TO COMPLETE DETOX REGIMEN. RISKS OF LEAVING DETOX UNIT AGAINST MEDICAL ADVICE AND PRIOR TO COMPLETION OF DETOX REGIMEN EXPLAINED TO PATIENT. PATIENT ADVISED TO COMPLETE REMAINDER OF FULL COURSE OF PREDNISONE THAT HE STARTED FOR ACUTE ASTHMA EXACERBATION PRIOR TO ( AND CONTINUED DURING) DETOX ADMISSION. (TIFFANIE COMPLETE FULL COURSE OF AZITHROMYCIN PRIOR TO LEAVING DETOX UNIT). PATIENT ALSO ADVISED TO GO IMMEDIATELY TO NEAREST ER SHOULD ANY INTOLERABLE WITHDRAWAL / DETOX SYMPTOMS DEVELOP AT ANY TIME. PATIENT VERBALIZED UNDERSTANDING OF ALL INFORMATION / RECOMMENDATIONS PRESENTED TO HIM PRIOR TO DEPARTURE FROM DETOX UNIT. PATIENT LEFT DETOX UNIT IN STABLE MEDICAL CONDITION. Pertinent Past History: Nicotine Dependence, Asthma, Depression, Insomnia. - Physical Exam Results Vital Signs: Vital Signs Temperature 98.8 F 02/01/19 09:11 Pulse Rate 85 02/01/19 09:11 Respiratory Rate 18 02/01/19 09:11 Blood Pressure 124/82 02/01/19 09:11 O2 Sat by Pulse Oximetry (%) 98 01/30/19 10:01 Pertinent Admission Physical Exam Findings: WITHDRAWAL SYMPTOMS. Laboratory Tests 01/30/19 01/30/19 01/30/19 08:15 08:15 08:15 WBC 11.4 H RBC 4.31 Hgb 12.6 Hct 38.0 MCV 88.2 MCH 29.2 MCHC 33.1 RDW 13.7 Plt Count 401 D MPV 7.8 Sodium 138 Potassium 4.8 Chloride 103 Carbon Dioxide 28 Anion Gap 7 L BUN 12.6 Creatinine 0.8 Est GFR (CKD-EPI)AfAm 139.91 Est GFR (CKD-EPI)NonAf 120.72 Random Glucose 95 Calcium 9.5 Total Bilirubin 0.3 AST 7 L ALT 22 Alkaline Phosphatase 65 Total Protein 7.1 Albumin 3.7 RPR Titer Nonreactive LABS NOTED. - Medication Discharge Medications: Ambulatory Orders Albuterol 0.083% Nebulizer [place] [Ventolin 0.083% Nebulizer Soln -] 1 neb NEB Q6H PRN 01/27/18 Albuterol Sulfate Inhaler - [Ventolin HFA Inhaler -] 2 inh IH QID 01/27/18 Azithromycin 250 mg PO DAILY 10/22/19 Prednisone [Deltasone] 20 mg PO TID 01/29/19 Quetiapine Fumarate [Seroquel -] 50 mg PO HS 01/29/19 Naloxone HCl [Narcan] 4 mg NS ASDIR PRN #1 spray 01/31/19 - Diagnosis (1) Alcohol dependence with uncomplicated withdrawal Status: Acute (2) Asthma Status: Chronic Qualifiers: Asthma severity: mild Asthma persistence: intermittent Asthma complication type: with status asthmaticus Qualified Code(s): J45.22 - Mild intermittent asthma with status asthmaticus (3) Cannabis dependence Status: Chronic (4) Insomnia Status: Chronic Qualifiers: Insomnia type: unspecified Qualified Code(s): G47.00 - Insomnia, unspecified (5) Nicotine use disorder Status: Chronic (6) Sedative, hypnotic or anxiolytic abuse Status: Chronic - AMA Did Patient Leave Against Medical Advice: Yes (PATIENT DID NOT WISH TO REMAIN TO COMPLETE DETOX REGIMEN.) [facility] CIWA - CIWA Score Nausea/Vomitin-No Nausea/No Vomiting Muscle Tremors: 3 Anxiety: 3 Agitation: 4-Moderately Restless Paroxysmal Sweats: No Perspiration Orientation: 0-Oriented Tacttile Disturbances: 1-Very Mild Itch/Numbness Auditory Disturbances: 0-None Visual Disturbances: 0-None Headache: 0-None Present CIWA-Ar Total Score: 11 S COWS - Scale Resting Pulse: 1= [place] 81-100 Sweatin= Chills/Flushing Restless Observation: 1= Difficult to Sit Still Pupil Size: 0= Normal to Room Light Bone or Joint Aches: 1= Mild Discomfort Runny Nose/ Eye Tearin= None GI Upset > 30mins: 0= None Tremor Observation of Outstretched Hands: 2= Slight Tremor Visible Yawning Observation: 1= 1-2x During Session Anxiety or Irritability: 2=Irritable/Anxious Goose Flesh Skin: 0=Smooth Skin COWS Score: 9
[2019-02-01] MEDS ORDERED: QUEtiapine FUMARATE 50 MG TABLET PO SCH (22:00)
[2019-02-02] MEDS ORDERED: chlordiazePOXIDE HCL 10 MG CAPSULE PO ONE (05:00)
[2019-02-02] MEDS ORDERED: METHADONE HCL 10 MG TABLET (FOR DETOX USE ONLY) PO ONE (10:00)
[2019-02-03] MEDS ORDERED: METHADONE HCL 5 MG TABLET (FOR DETOX USE ONLY) PO ONE (06:00)
== END 2019-02-01 14:33 | disposition left against medical advice (07) | DRG 770 ==
LOC: YASAS 15:34 → Y3N 20:25
PROVIDERS: ADMIT Allergy & Immunology; ATTEND Allergy & Immunology
PROC: HZ2ZZZZ Detoxification Services for Substance Abuse Treatment (ICD-10-PCS; principal; 2019-01-29)
DX: F11.23 Opioid dependence with withdrawal (principal); F10.230 Alcohol dependence with withdrawal, uncomplicated; F13.230 Sedative, hypnotic or anxiolytic dependence with withdrawal, uncomplicated; F12.20 Cannabis dependence, uncomplicated; F17.210 Nicotine dependence, cigarettes, uncomplicated; J45.22 Mild intermittent asthma with status asthmaticus; G47.00 Insomnia, unspecified; R00.0 Tachycardia, unspecified
CPT/HCPCS: 36415; 80053; 85027; 86593; 94640

== ENCOUNTER 2019-02-21 13:37 | Inpatient (IN) | payer OTHER ==
[2019-02-21 14:14] VITALS: BMI 32.3
--- NOTE | 2019-02-21 16:18 | HP ---
COWS - Scale Resting Pulse: 4= [place] > 121 Sweatin= Chills/Flushing Restless Observation: 1= Difficult to Sit Still Pupil Size: 0= Normal to Room Light Bone or Joint Aches: 2= Severe Diffuse Aches Runny Nose/ Eye Tearin= Runny Nose/Eyes GI Upset > 30mins: 2= Nausea/Diarrhea Tremor Observation: 0= None Yawning Observation: 0= None Anxiety or Irritability: 1=Feels Anxious/Irritable Goose Flesh Skin: 0=Smooth Skin COWS Score: 13 CIWA Score Nausea/Vomitin Muscle Tremors: None Anxiety: 3 Agitation: 1-Slight > Activity Paroxysmal Sweats: 2 Orientation: 0-Oriented Tacttile Disturbances: 0-None Auditory Disturbances: 0-None Visual Disturbances: 0-None Headache: 0-None Present CIWA-Ar Total Score: 8 - Admission Criteria OASAS Guidelines: Admission for Medically Managed Detox: Requires at least one of the followin. CIWA greater than 12 2. Seizures within the past 24 hours 3. Delirium tremens within the past 24 hours 4. Hallucinations within the past 24 hours 5. Acute intervention needed for co occurring medical disorder 6. Acute intervention needed for co occurring psychiatric disorder 7. Severe withdrawal that cannot be handled at a lower level of care (continued vomiting, continued diarrhea, abnormal vital signs) requiring intravenous medication and/or fluids 8. Admitting History and Physical - Smoking History Smoking history: Never smoked Have you smoked in the past 12 months: No - Alcohol/Substance Use Hx Alcohol Use: Yes Admission [facility] Allergies/Adverse Reactions: Allergies Allergy/AdvReac Type Severity Reaction Status Date / Time No Known Allergies Allergy Verified 02/21/19 14:08 History of Present Illness: pt here requesting detox from etoh and opiate use , reports drinking alcohol since 1 week ago , reports binge-drinking since his [birth year] " I haven't stopped " , latest use this morning 1 beer , reports tremors in the morning if not drinking alcohol. heroin:10- 15 bags IV since 1 week ago , first age of use 22 ,latest use yesterday . cocaine : admits to occasional use , latest 2 days ago . cannabis : 5-6 blunts/day tobacco : 1/2 ppd since 2 mo ago benzo : 2 days ago klonopin PMHX : asthma admits t probation x 5 years since several months ago , was in outpt program [facility] , lives w/ SO no YANNA has Narcan @ home . Exam Limitations: No Limitations - Ebola screening Have you traveled outside of the country in the last 21 days: No Have you had contact with anyone from an Ebola affected area: No Do you have a fever: No - Review of Systems Constitutional: See HPI, Loss of Appetite EENT: reports: See HPI, Nose Congestion Respiratory: reports: No Symptoms reported Cardiac: reports: No Symptoms Reported GI: reports: See HPI, Nausea, Poor Appetite : reports: No Symptoms Reported Musculoskeletal: reports: See HPI Integumentary: reports: See HPI Neuro: reports: No Symptoms reported Endocrine: reports: No Symptoms Reported Psychiatric: reports: Orientated x3, Anxious Patient History - Patient Medical History Hx Asthma: Yes (on meds) Hx Chronic Obstructive Pulmonary Disease (COPD): No Hx Cancer: No Hx Cardiac Disorders: No Hx Hypertension: No Hx Hypercholesterolemia: No Hx Pacemaker: No HX Cerebrovascular Accident: No Hx Seizures: No Hx Dementia: No Hx Diabetes: No Hx Gastrointestinal Disorders: No Hx Liver Disease: No Hx Genitourinary Disorders: No Hx Sexually Transmitted Disorders: No Hx Renal Disease (ESRD): No Hx Thyroid Disease: No Hx Human Immunodeficiency Virus (HIV): No (last in 2014 negative) Hx Hepatitis C: No Hx Depression: Yes (feels stress, insomnia) Hx Suicide Attempt: No Hx Bipolar Disorder: No Hx Schizophrenia: No - Patient Surgical History Past Surgical History: No Hx Neurologic Surgery: No Hx Cataract Extraction: No Hx Cardiac Surgery: No Hx Lung Surgery: No Hx Breast Surgery: No Hx Breast Biopsy: No Hx Abdominal Surgery: No Hx Appendectomy: No Hx Cholecystectomy: No Hx Genitourinary Surgery: No Hx Section: No Hx Orthopedic Surgery: No Anesthesia Reaction: No - PPD History Date: 07/21/18 Results: 0mm - Smoking Cessation Smoking history: Never smoked Have you smoked in the past 12 months: No Cigars Per Day: 0 Hx Chewing Tobacco Use: No - Substances abused Heroin Substance route: Injection Frequency: Daily Amount used: 1 1/2 bundle Age of first use: 21 Date of last use: 02/21/19 Alcohol Substance route: Oral Frequency: Daily Amount used: (2) 40oz of beer Age of first use: 12 Date of last use: 02/21/19 Other Other (specify): klonopin Substance route: Oral Frequency: Daily Amount used: 2) 1mg Age of first use: 21 Date of last use: 01/15/19 Marijuana/Hashish Substance route: Smoking Frequency: Daily Amount used: 2 blunts daily Age of first use: 12 Date of last use: 02/21/19 Cocaine Substance route: Inhalation Frequency: 1-2 times per week Amount used: 2 grams Age of first use: 18 Date of last use: 02/16/19 Admission Physical Exam BHS - Vital Signs Vital Signs: Vital Signs - 24 hr 02/21/19 14:09 Temperature 97.9 F Pulse Rate 129 H Respiratory 20 Rate Blood Pressure 122/72 - Physical General Appearance: Yes: Mild Distress, Anxious HEENTM: Yes: EOMI, Hearing grossly Normal, Normocephalic, Normal Voice Respiratory: Yes: Chest Non-Tender, No Respiratory Distress, No Accessory Muscle Use, Wheezing, Expiration Neck: Yes: No masses,lesions,Nodules, Trachea in good position Cardiology: Yes: Regular Rhythm, Regular Rate, S1, S2, Tachycardia Abdominal: Yes: Non Tender, Soft Musculoskeletal: Yes: Gait Steady Extremities: Yes: Normal Range of Motion, Non-Tender Neurological: Yes: Alert, Motor Strength 5/5 Integumentary: Yes: Warm, Track Richardson (anika UE left mild erythyema, no edema/ induration/ abscess) - Diagnostic (1) Alcohol dependence with uncomplicated withdrawal Current Visit: Yes Status: Acute (2) Opioid dependence with withdrawal Current Visit: Yes Status: Acute (3) Cannabis dependence Current Visit: Yes Status: Chronic (4) Nicotine use disorder Current Visit: Yes Status: Chronic Breathalyzer - Breathalyzer Breathalyzer: 0.017 Urine Drug Screen - Test Device Lot number: [id number] Expiration date: 11/07/20 - Control Is test valid?: Yes - Results Drug screen NEGATIVE: No Urine drug screen results: THC-Marijuana, FEN-Fentanyl, MOP-Opiates, BZO- Benzodiazepines Inpatient Rehab Admission - Rehab Decision to Admit Inpatient rehab admission?: No
[2019-02-21] MEDS ORDERED: MAGNESIUM HYDROX 2400MG/30ML ORAL SUSPENSION 30 ML CUP PO PRN (16:39)
[2019-02-21] MEDS ORDERED: MENTHOL/PHENOL 1 EACH UD MM PRN (16:39)
[2019-02-21] MEDS ORDERED: ACETAMINOPHEN 325 MG TABLET (FP) PO PRN ×2 (16:39)
[2019-02-21] MEDS ORDERED: hydrOXYzine PAMOATE 25 MG CAPSULE (FP) PO PRN (16:39)
[2019-02-21] MEDS ORDERED: MAG HYDROX/AL HYDROX/SIMETH 30 ML UNIT-DOSE CUP PO PRN (16:39)
[2019-02-21] MEDS ORDERED: MAGNESIUM CITRATE 300 ML BOTTLE PO PRN (16:39)
[2019-02-21] MEDS ORDERED: BISMUTH SUBSALICYLATE 524 MG/30 ML UD PO PRN (16:39)
[2019-02-21] MEDS ORDERED: IBUPROFEN 400 MG TABLET (FP) PO PRN (16:39)
[2019-02-21] MEDS ORDERED: cloNIDine HCL 0.1 MG TABLET PO PRN (16:40)
[2019-02-21] MEDS ORDERED: ALBUTEROL SO4 0.083% IH SOL 2.5 MG/3 ML VIAL.NEB. NEB PRN (17:00)
[2019-02-21] MEDS ORDERED: METHADONE HCL 10 MG TABLET (FOR DETOX USE ONLY) PO ONE (17:15)
[2019-02-21] MEDS: diazePAM 5 MG TABLET PO PRN (17:47)
[2019-02-21] MEDS ORDERED: ALBUTEROL SO4 8 GM HFA INHALER IH ONE (17:49)
[2019-02-21] MEDS: THIAMINE HCL 100 MG TABLET (FP) PO SCH (22:12)
[2019-02-21] MEDS: MELATONIN 5 MG TABLETS PO PRN (22:12)
[2019-02-21] MEDS: diazePAM 5 MG TABLET PO SCH (22:12)
[2019-02-21] MEDS: METHOCARBAMOL 500 MG TABLET PO PRN (22:12)
[2019-02-21] MEDS: ALBUTEROL SO4 8 GM HFA INHALER IH PRN (23:15)
[2019-02-22] MEDS: ALBUTEROL SO4 8 GM HFA INHALER IH PRN ×3 (02:30→22:16)
[2019-02-22] MEDS: diazePAM 5 MG TABLET PO SCH ×3 (05:29→22:15)
[2019-02-22] MEDS ORDERED: METHADONE HCL 10 MG TABLET (FOR DETOX USE ONLY) ONE (09:40)
[2019-02-22] MEDS ORDERED: METHADONE HCL 5 MG TABLET (FOR DETOX USE ONLY) ONE (09:41)
[2019-02-22] MEDS ORDERED: METHADONE (DETOX) 20 MG, METHADONE (DETOX) 5 MG PO ONE (10:00)
[2019-02-22 10:25] LABS: ALBUMIN 3.6 g/dl (3.4-5.0); BILIRUBIN,TOTAL 0.5 mg/dL (0.2-1); BLOOD UREA NITROGEN 13.5 mg/dL (7-18); CALCIUM 9.4 mg/dL (8.5-10.1); CREATININE 0.9 mg/dL (0.55-1.3)
[2019-02-22] MEDS: PRENATAL VITAMINS W/ FOLIC ACID TABLET (FP) PO SCH (10:39)
[2019-02-22 10:44] LABS: HEMATOCRIT 37.3 % (35.4-49); HEMOGLOBIN 12.6 GM/dL (11.7-16.9); MCH 29.2 pg (25.7-33.7); MCHC 33.7 g/dl (32.0-35.9); MEAN CELL VOLUME 86.7 fl (80-96); MEAN PLT VOLUME 7.8 fl (7.5-11.1); PLATELET COUNT 294 K/MM3 (134-434); RDW 13.9 % (11.9-15.9); WHITE BLOOD COUNT 4.1 K/mm3 (4.0-10.0)
[2019-02-22] MEDS: diazePAM 5 MG TABLET PO PRN (10:44)
[2019-02-22] MEDS: METHOCARBAMOL 500 MG TABLET PO PRN ×2 (10:45→22:16)
--- NOTE | 2019-02-22 14:28 | PN ---
S CIWA - CIWA Score Nausea/Vomitin-Mild Nausea/No Vomiting Muscle Tremors: 1-None Visible, but [place] Anxiety: 1-Mildly Anxious Agitation: 0-Normal Activity Paroxysmal Sweats: 2 Orientation: 0-Oriented Tacttile Disturbances: 2-Mild Itch/Numbness/Burn Auditory Disturbances: 0-None Visual Disturbances: 0-None Headache: 0-None Present CIWA-Ar Total Score: 7 BHS COWS - Scale Resting Pulse: 1= [place] 81-100 Sweatin= Chills/Flushing Restless Observation: 1= Difficult to Sit Still Pupil Size: 1= Pupils >than Normal Bone or Joint Aches: 2= Severe Diffuse Aches Runny Nose/ Eye Tearin= Nasal Congestion GI Upset > 30mins: 1= Stomach Cramp Tremor Observation of Outstretched Hands: 1= Tremor [place], Not Seen Yawning Observation: 0= None Anxiety or Irritability: 1=Feels Anxious/Irritable Goose Flesh Skin: 0=Smooth Skin COWS Score: 10 S Progress Note (SOAP) Subjective: INTERRUPTED SLEEP, SWEATS, BACK PAIN , DIMINISHED APPETITE Objective: 02/22/19 14:27 Vital Signs Temperature 97.3 F L 02/22/19 13:12 Pulse Rate 97 H 02/22/19 13:12 Respiratory Rate 18 02/22/19 13:12 Blood Pressure 112/70 02/22/19 13:12 O2 Sat by Pulse Oximetry (%) Laboratory Tests 02/22/19 02/22/19 02/22/19 07:00 07:00 07:00 WBC 4.1 RBC 4.30 Hgb 12.6 Hct 37.3 MCV 86.7 MCH 29.2 MCHC 33.7 RDW 13.9 Plt Count 294 D MPV 7.8 Sodium 140 Potassium 4.0 Chloride 104 Carbon Dioxide 30 Anion Gap 7 L BUN 13.5 Creatinine 0.9 Est GFR (CKD-EPI)AfAm 132.37 Est GFR (CKD-EPI)NonAf 114.21 Random Glucose 104 Calcium 9.4 Total Bilirubin 0.5 AST 13 L ALT 24 Alkaline Phosphatase 62 Total Protein 7.0 Albumin 3.6 RPR Titer Nonreactive PT AOX3 IN NAD AMBULATING Assessment: 02/22/19 14:28 WITHDRAWAL SX'S Plan: CONT. DETOX INCREASE FLUIDS MOTRIN PRN
[2019-02-22] MEDS: THIAMINE HCL 100 MG TABLET (FP) PO SCH (22:15)
[2019-02-22] MEDS: MELATONIN 5 MG TABLETS PO PRN (22:16)
[2019-02-23] MEDS: diazePAM 5 MG TABLET PO SCH ×2 (05:47→17:42)
[2019-02-23] MEDS: ALBUTEROL SO4 8 GM HFA INHALER IH PRN ×2 (05:47→23:24)
[2019-02-23] MEDS ORDERED: METHADONE HCL 10 MG TABLET (FOR DETOX USE ONLY) PO ONE (10:00)
[2019-02-23] MEDS: PRENATAL VITAMINS W/ FOLIC ACID TABLET (FP) PO SCH (10:02)
[2019-02-23] MEDS: METHOCARBAMOL 500 MG TABLET PO PRN ×2 (10:02→22:18)
[2019-02-23] MEDS: diazePAM 5 MG TABLET PO PRN ×3 (10:03→22:21)
--- NOTE | 2019-02-23 12:07 | PN ---
S CIWA - CIWA Score Nausea/Vomitin-No Nausea/No Vomiting Muscle Tremors: 2 Anxiety: 3 Agitation: 0-Normal Activity Paroxysmal Sweats: 3 Orientation: 0-Oriented Tacttile Disturbances: 0-None Auditory Disturbances: 0-None Visual Disturbances: 0-None Headache: 2-Mild CIWA-Ar Total Score: 10 BHS COWS - Scale Resting Pulse: 0= [place] 80 or Below Sweatin= Chills/Flushing Restless Observation: 1= Difficult to Sit Still Pupil Size: 0= Normal to Room Light Bone or Joint Aches: 2= Severe Diffuse Aches Runny Nose/ Eye Tearin= None GI Upset > 30mins: 0= None Tremor Observation of Outstretched Hands: 2= Slight Tremor Visible Yawning Observation: 1= 1-2x During Session Anxiety or Irritability: 2=Irritable/Anxious Goose Flesh Skin: 0=Smooth Skin COWS Score: 9 BHS Progress Note (SOAP) Subjective: c/o anxiety, irritability, sweats, headache, and muscle aches. Objective: 02/23/19 12:05 Vital Signs 02/23/19 02/23/19 06:38 09:10 Temperature 97.0 F L 97.7 F Pulse Rate 75 81 Respiratory 18 18 Rate Blood Pressure 120/76 122/82 Laboratory Last Values WBC 4.1 K/mm3 (4.0-10.0) 02/22/19 07:00 RBC 4.30 M/mm3 (4.00-5.60) 02/22/19 07:00 Hgb 12.6 GM/dL (11.7-16.9) 02/22/19 07:00 Hct 37.3 % (35.4-49) 02/22/19 07:00 MCV 86.7 fl (80-96) 02/22/19 07:00 MCH 29.2 pg (25.7-33.7) 02/22/19 07:00 MCHC 33.7 g/dl (32.0-35.9) 02/22/19 07:00 RDW 13.9 % (11.9-15.9) 02/22/19 07:00 Plt Count 294 K/MM3 (134-434) D 02/22/19 07:00 MPV 7.8 fl (7.5-11.1) 02/22/19 07:00 Sodium 140 mmol/L (136-145) 02/22/19 07:00 Potassium 4.0 mmol/L (3.5-5.1) 02/22/19 07:00 Chloride 104 mmol/L (98-107) 02/22/19 07:00 Carbon Dioxide 30 mmol/L (21-32) 02/22/19 07:00 Anion Gap 7 MMOL/L (8-16) L 02/22/19 07:00 BUN 13.5 mg/dL (7-18) 02/22/19 07:00 Creatinine 0.9 mg/dL (0.55-1.3) 02/22/19 07:00 Est GFR (CKD-EPI)AfAm 132.37 02/22/19 07:00 Est GFR (CKD-EPI)NonAf 114.21 02/22/19 07:00 Random Glucose 104 mg/dL (74-106) 02/22/19 07:00 Calcium 9.4 mg/dL (8.5-10.1) 02/22/19 07:00 Total Bilirubin 0.5 mg/dL (0.2-1) 02/22/19 07:00 AST 13 U/L (15-37) L 02/22/19 07:00 ALT 24 U/L (13-61) 02/22/19 07:00 Alkaline Phosphatase 62 U/L (45-117) 02/22/19 07:00 Total Protein 7.0 g/dl (6.4-8.2) 02/22/19 07:00 Albumin 3.6 g/dl (3.4-5.0) 02/22/19 07:00 RPR Titer Nonreactive (NONREACTIVE) 02/22/19 07:00 Labs noted. Assessment: 02/23/19 12:06 AOX3, in no acute respiratory distress. Full ROM, ambulating in the unit. Withdrawal symptoms. Plan: continue detox.
[2019-02-23] MEDS: THIAMINE HCL 100 MG TABLET (FP) PO SCH (22:18)
[2019-02-23] MEDS: MELATONIN 5 MG TABLETS PO PRN (22:18)
[2019-02-24] MEDS: ALBUTEROL SO4 8 GM HFA INHALER IH PRN (05:16)
[2019-02-24] MEDS ORDERED: diazePAM 5 MG TABLET PO ONE (06:00)
[2019-02-24] MEDS ORDERED: METHADONE HCL 10 MG TABLET (FOR DETOX USE ONLY) ONE (09:46)
[2019-02-24] MEDS ORDERED: METHADONE HCL 5 MG TABLET (FOR DETOX USE ONLY) ONE (09:47)
[2019-02-24] MEDS ORDERED: METHADONE (DETOX) 10 MG, METHADONE (DETOX) 5 MG PO ONE (10:00)
[2019-02-24] MEDS: METHOCARBAMOL 500 MG TABLET PO PRN ×2 (10:24→22:08)
[2019-02-24] MEDS: diazePAM 5 MG TABLET PO PRN (10:24)
[2019-02-24] MEDS: PRENATAL VITAMINS W/ FOLIC ACID TABLET (FP) PO SCH (10:24)
--- NOTE | 2019-02-24 14:37 | PN ---
[facility] CIWA - CIWA Score Nausea/Vomitin-Mild Nausea/No Vomiting Muscle Tremors: 2 Anxiety: 2 Agitation: 2 Paroxysmal Sweats: 1-Minimal Palms Moist Orientation: 0-Oriented Tacttile Disturbances: 0-None Auditory Disturbances: 0-None Visual Disturbances: 0-None Headache: 0-None Present CIWA-Ar Total Score: 8 BHS COWS - Scale Resting Pulse: 1= [place] 81-100 Sweatin= Chills/Flushing Restless Observation: 0= Sits Still Pupil Size: 0= Normal to Room Light Bone or Joint Aches: 1= Mild Discomfort Runny Nose/ Eye Tearin= Nasal Congestion GI Upset > 30mins: 1= Stomach Cramp Tremor Observation of Outstretched Hands: 1= Tremor [place], Not Seen Yawning Observation: 1= 1-2x During Session Anxiety or Irritability: 1=Feels Anxious/Irritable Goose Flesh Skin: 0=Smooth Skin COWS Score: 8 [facility] Progress Note (SOAP) Subjective: 29 years old male admitted on 02/21/19 for alcohol and opiate withdrawal sx management treated with valium and methadone detox regimen feeling better ambulating on hallway way social with peers in day room discuss aftercare with staff Objective: 02/24/19 14:36 Vital Signs Temperature 97.6 F 02/24/19 09:53 Pulse Rate 92 H 02/24/19 09:53 Respiratory Rate 18 02/24/19 09:53 Blood Pressure 124/76 02/24/19 09:53 O2 Sat by Pulse Oximetry (%) Laboratory Last Values WBC 4.1 K/mm3 (4.0-10.0) 02/22/19 07:00 RBC 4.30 M/mm3 (4.00-5.60) 02/22/19 07:00 Hgb 12.6 GM/dL (11.7-16.9) 02/22/19 07:00 Hct 37.3 % (35.4-49) 02/22/19 07:00 MCV 86.7 fl (80-96) 02/22/19 07:00 MCH 29.2 pg (25.7-33.7) 02/22/19 07:00 MCHC 33.7 g/dl (32.0-35.9) 02/22/19 07:00 RDW 13.9 % (11.9-15.9) 02/22/19 07:00 Plt Count 294 K/MM3 (134-434) D 02/22/19 07:00 MPV 7.8 fl (7.5-11.1) 02/22/19 07:00 Sodium 140 mmol/L (136-145) 02/22/19 07:00 Potassium 4.0 mmol/L (3.5-5.1) 02/22/19 07:00 Chloride 104 mmol/L (98-107) 02/22/19 07:00 Carbon Dioxide 30 mmol/L (21-32) 02/22/19 07:00 Anion Gap 7 MMOL/L (8-16) L 02/22/19 07:00 BUN 13.5 mg/dL (7-18) 02/22/19 07:00 Creatinine 0.9 mg/dL (0.55-1.3) 02/22/19 07:00 Est GFR (CKD-EPI)AfAm 132.37 02/22/19 07:00 Est GFR (CKD-EPI)NonAf 114.21 02/22/19 07:00 Random Glucose 104 mg/dL (74-106) 02/22/19 07:00 Calcium 9.4 mg/dL (8.5-10.1) 02/22/19 07:00 Total Bilirubin 0.5 mg/dL (0.2-1) 02/22/19 07:00 AST 13 U/L (15-37) L 02/22/19 07:00 ALT 24 U/L (13-61) 02/22/19 07:00 Alkaline Phosphatase 62 U/L (45-117) 02/22/19 07:00 Total Protein 7.0 g/dl (6.4-8.2) 02/22/19 07:00 Albumin 3.6 g/dl (3.4-5.0) 02/22/19 07:00 RPR Titer Nonreactive (NONREACTIVE) 02/22/19 07:00 lab noted Assessment: 02/24/19 14:36 alcohol and opiate withdrawal sx Plan: continue valium and methadone detox regimen
[2019-02-24] MEDS: MELATONIN 5 MG TABLETS PO PRN (22:08)
[2019-02-24] MEDS: THIAMINE HCL 100 MG TABLET (FP) PO SCH (22:08)
[2019-02-25] MEDS: ALBUTEROL SO4 8 GM HFA INHALER IH PRN ×2 (07:49→22:03)
[2019-02-25] MEDS ORDERED: METHADONE HCL 10 MG TABLET (FOR DETOX USE ONLY) PO ONE (10:00)
[2019-02-25] MEDS: PRENATAL VITAMINS W/ FOLIC ACID TABLET (FP) PO SCH (10:08)
--- NOTE | 2019-02-25 10:54 | PN ---
S CIWA - CIWA Score Nausea/Vomitin-No Nausea/No Vomiting Muscle Tremors: 2 Anxiety: 2 Agitation: 2 Paroxysmal Sweats: No Perspiration Orientation: 0-Oriented Tacttile Disturbances: 0-None Auditory Disturbances: 0-None Visual Disturbances: 0-None Headache: 0-None Present CIWA-Ar Total Score: 6 BHS COWS - Scale Resting Pulse: 0= [place] 80 or Below Sweatin= Chills/Flushing Restless Observation: 0= Sits Still Pupil Size: 1= Pupils >than Normal Bone or Joint Aches: 1= Mild Discomfort Runny Nose/ Eye Tearin= None GI Upset > 30mins: 1= Stomach Cramp Tremor Observation of Outstretched Hands: 1= Tremor [place], Not Seen Yawning Observation: 0= None Anxiety or Irritability: 1=Feels Anxious/Irritable Goose Flesh Skin: 0=Smooth Skin COWS Score: 6 BHS Progress Note (SOAP) Subjective: 29 years old male admitted on 02/19/19 for alcohol and opiate withdrawal sx management treated wt valium and methadone detox regimen slept through out the night less tremor mild body ache Objective: 02/25/19 10:53 Vital Signs Temperature 97.2 F L 02/25/19 09:12 Pulse Rate 73 02/25/19 09:12 Respiratory Rate 18 02/25/19 09:12 Blood Pressure 124/88 02/25/19 09:12 O2 Sat by Pulse Oximetry (%) Laboratory Last Values WBC 4.1 K/mm3 (4.0-10.0) 02/22/19 07:00 RBC 4.30 M/mm3 (4.00-5.60) 02/22/19 07:00 Hgb 12.6 GM/dL (11.7-16.9) 02/22/19 07:00 Hct 37.3 % (35.4-49) 02/22/19 07:00 MCV 86.7 fl (80-96) 02/22/19 07:00 MCH 29.2 pg (25.7-33.7) 02/22/19 07:00 MCHC 33.7 g/dl (32.0-35.9) 02/22/19 07:00 RDW 13.9 % (11.9-15.9) 02/22/19 07:00 Plt Count 294 K/MM3 (134-434) D 02/22/19 07:00 MPV 7.8 fl (7.5-11.1) 02/22/19 07:00 Sodium 140 mmol/L (136-145) 02/22/19 07:00 Potassium 4.0 mmol/L (3.5-5.1) 02/22/19 07:00 Chloride 104 mmol/L (98-107) 02/22/19 07:00 Carbon Dioxide 30 mmol/L (21-32) 02/22/19 07:00 Anion Gap 7 MMOL/L (8-16) L 02/22/19 07:00 BUN 13.5 mg/dL (7-18) 02/22/19 07:00 Creatinine 0.9 mg/dL (0.55-1.3) 02/22/19 07:00 Est GFR (CKD-EPI)AfAm 132.37 02/22/19 07:00 Est GFR (CKD-EPI)NonAf 114.21 02/22/19 07:00 Random Glucose 104 mg/dL (74-106) 02/22/19 07:00 Calcium 9.4 mg/dL (8.5-10.1) 02/22/19 07:00 Total Bilirubin 0.5 mg/dL (0.2-1) 02/22/19 07:00 AST 13 U/L (15-37) L 02/22/19 07:00 ALT 24 U/L (13-61) 02/22/19 07:00 Alkaline Phosphatase 62 U/L (45-117) 02/22/19 07:00 Total Protein 7.0 g/dl (6.4-8.2) 02/22/19 07:00 Albumin 3.6 g/dl (3.4-5.0) 02/22/19 07:00 RPR Titer Nonreactive (NONREACTIVE) 02/22/19 07:00 lab noted Assessment: 02/25/19 10:53 alcohol and opiate withdrawal sx Plan: continue valium and methadone detox regimen
[2019-02-25] MEDS: THIAMINE HCL 100 MG TABLET (FP) PO SCH (22:02)
[2019-02-25] MEDS: METHOCARBAMOL 500 MG TABLET PO PRN (22:02)
[2019-02-25] MEDS: MELATONIN 5 MG TABLETS PO PRN (22:03)
[2019-02-26] MEDS: ALBUTEROL SO4 8 GM HFA INHALER IH PRN (05:21)
[2019-02-26] MEDS ORDERED: METHADONE HCL 5 MG TABLET (FOR DETOX USE ONLY) PO ONE (06:00)
[2019-02-26 09:15] VITALS: BP 100/62; PULSE 76; TEMP 97.7
--- NOTE | 2019-02-26 11:03 | DS ---
[facility] Detox Discharge Summary Admission Date: 02/21/19 Discharge Date: 02/26/19 - History Present History: Alcohol Dependence, Opioid Dependence Additional Comments: 29 years old male admitted on 02/19/19 for alcohol and opiate withdrawal sx management treated with valium and methadone detox regimen patient is alert oriented x 3 cardiac S1S2 regular rate rhythm respiratory clear lung bilaterally on auscultation extremities full range of motion - Physical Exam Results Vital Signs: Vital Signs Temperature 97.7 F 02/26/19 09:15 Pulse Rate 76 02/26/19 09:15 Respiratory Rate 16 02/26/19 09:15 Blood Pressure 100/62 02/26/19 09:15 O2 Sat by Pulse Oximetry (%) Pertinent Admission Physical Exam Findings: alcohol and opiate withdrawal sx Laboratory Last Values WBC 4.1 K/mm3 (4.0-10.0) 02/22/19 07:00 RBC 4.30 M/mm3 (4.00-5.60) 02/22/19 07:00 Hgb 12.6 GM/dL (11.7-16.9) 02/22/19 07:00 Hct 37.3 % (35.4-49) 02/22/19 07:00 MCV 86.7 fl (80-96) 02/22/19 07:00 MCH 29.2 pg (25.7-33.7) 02/22/19 07:00 MCHC 33.7 g/dl (32.0-35.9) 02/22/19 07:00 RDW 13.9 % (11.9-15.9) 02/22/19 07:00 Plt Count 294 K/MM3 (134-434) D 02/22/19 07:00 MPV 7.8 fl (7.5-11.1) 02/22/19 07:00 Sodium 140 mmol/L (136-145) 02/22/19 07:00 Potassium 4.0 mmol/L (3.5-5.1) 02/22/19 07:00 Chloride 104 mmol/L (98-107) 02/22/19 07:00 Carbon Dioxide 30 mmol/L (21-32) 02/22/19 07:00 Anion Gap 7 MMOL/L (8-16) L 02/22/19 07:00 BUN 13.5 mg/dL (7-18) 02/22/19 07:00 Creatinine 0.9 mg/dL (0.55-1.3) 02/22/19 07:00 Est GFR (CKD-EPI)AfAm 132.37 02/22/19 07:00 Est GFR (CKD-EPI)NonAf 114.21 02/22/19 07:00 Random Glucose 104 mg/dL (74-106) 02/22/19 07:00 Calcium 9.4 mg/dL (8.5-10.1) 02/22/19 07:00 Total Bilirubin 0.5 mg/dL (0.2-1) 02/22/19 07:00 AST 13 U/L (15-37) L 02/22/19 07:00 ALT 24 U/L (13-61) 02/22/19 07:00 Alkaline Phosphatase 62 U/L (45-117) 02/22/19 07:00 Total Protein 7.0 g/dl (6.4-8.2) 02/22/19 07:00 Albumin 3.6 g/dl (3.4-5.0) 02/22/19 07:00 RPR Titer Nonreactive (NONREACTIVE) 02/22/19 07:00 lab noted - Treatment Hospital Course: Detox Protocol Followed, Detoxed Safely, Responded well, Discharged Condition Good, Rehab Referral Accepted Patient has Accepted a Rehab Referral to: [facility] [place] - Medication Discharge Medications: Ambulatory Orders Albuterol Sulfate Inhaler - [Ventolin HFA Inhaler -] 2 inh IH QID 01/27/18 Quetiapine Fumarate [Seroquel -] 50 mg PO HS 01/29/19 Naloxone HCl [Narcan] 4 mg NS ASDIR PRN #1 spray 02/25/19 - Diagnosis (1) Alcohol dependence with uncomplicated withdrawal Status: Acute (2) Opioid dependence with withdrawal Status: Acute (3) Asthma Status: Chronic Qualifiers: Asthma severity: mild Asthma persistence: intermittent Asthma complication type: with status asthmaticus Qualified Code(s): J45.22 - Mild intermittent asthma with status asthmaticus (4) Eczema Status: Chronic Qualifiers: Eczema type: unspecified Qualified Code(s): L30.9 - Dermatitis, unspecified (5) Nicotine use disorder Status: Acute - AMA Did Patient Leave Against Medical Advice: No CIWA Score - CIWA Score Nausea/Vomitin-No Nausea/No Vomiting Muscle Tremors: 1-None Visible, but [place] Anxiety: 1-Mildly Anxious Agitation: 1-Slight > Activity Paroxysmal Sweats: No Perspiration Orientation: 0-Oriented Tacttile Disturbances: 0-None Auditory Disturbances: 0-None Visual Disturbances: 0-None Headache: 0-None Present CIWA-Ar Total Score: 3 COWS (PN) - Opiate Withdrawal Resting Pulse: 0= VT 80 or Below Sweatin= Chills/Flushing Restless Observation: 0= Sits Still Pupil Size: 0= Normal to Room Light Bone or Joint Aches: 1= Mild Discomfort Runny Nose/ Eye Tearin= None GI Upset > 30mins: 0= None Tremor Observation of Outstretched Hands: 1= Tremor [place], Not Seen Yawning Observation: 0= None Anxiety or Irritability: 0= None Goose Flesh Skin: 0=Smooth Skin COWS Score: 3
== END 2019-02-26 09:51 | disposition home or self-care (01) | DRG 773 ==
LOC: YASAS 13:37 → Y3N 16:49
PROVIDERS: ADMIT Allergy & Immunology; ATTEND Allergy & Immunology
PROC: HZ2ZZZZ Detoxification Services for Substance Abuse Treatment (ICD-10-PCS; principal; 2019-02-21)
DX: F10.230 Alcohol dependence with withdrawal, uncomplicated (principal); F11.23 Opioid dependence with withdrawal; F13.20 Sedative, hypnotic or anxiolytic dependence, uncomplicated; F14.10 Cocaine abuse, uncomplicated; F12.10 Cannabis abuse, uncomplicated; F17.210 Nicotine dependence, cigarettes, uncomplicated; F32.9 Major depressive disorder, single episode, unspecified; L30.9 Dermatitis, unspecified; Z87.09 Personal history of other diseases of the respiratory system
CPT/HCPCS: 36415; 80053; 85027; 86593; 94640; J0735

== ENCOUNTER 2019-04-17 08:38 | Inpatient (IN) | payer OTHER ==
[2019-04-17 09:16] VITALS: BMI 32.8
--- NOTE | 2019-04-17 09:55 | HP ---
COWS - Scale Resting Pulse: 1= [place] 81-100 Sweatin= Chills/Flushing Restless Observation: 0= Sits Still Pupil Size: 0= Normal to Room Light Bone or Joint Aches: 1= Mild Discomfort Runny Nose/ Eye Tearin= Nasal Congestion GI Upset > 30mins: 3= Vomiting/Diarrhea Tremor Observation: 1= Tremor [place], Not Seen Yawning Observation: 1= 1-2x During Session Anxiety or Irritability: 1=Feels Anxious/Irritable Goose Flesh Skin: 3=Piloerection COWS Score: 13 CIWA Score Nausea/Vomitin-Cont. Nausea/Vomiting Muscle Tremors: 1-None Visible, but [place] Anxiety: 4-Mod. Anxious/Guarded Agitation: 3 Paroxysmal Sweats: 1-Minimal Palms Moist Orientation: 0-Oriented Tacttile Disturbances: 0-None Auditory Disturbances: 0-None Visual Disturbances: 0-None Headache: 0-None Present CIWA-Ar Total Score: 16 - Admission Criteria OASAS Guidelines: Admission for Medically Managed Detox: Requires at least one of the followin. CIWA greater than 12 2. Seizures within the past 24 hours 3. Delirium tremens within the past 24 hours 4. Hallucinations within the past 24 hours 5. Acute intervention needed for co occurring medical disorder 6. Acute intervention needed for co occurring psychiatric disorder 7. Severe withdrawal that cannot be handled at a lower level of care (continued vomiting, continued diarrhea, abnormal vital signs) requiring intravenous medication and/or fluids 8. Admitting History and Physical - Admission Chief Complaint: " I am here for detox and then I got to go to rehab" History of Present Illness: 29 year old male with history of opiate dependence and alcohol dependence. pt here requesting detox from etoh and opiate use , just recently relapsed 3 weeks ago, latest use this morning 1 beer this morning 24 oz waller.,He started drinking again for the holidays. heroin:10 bags IV since 1 week ago, first age of use 22 ,latest use yesterday . cocaine : none at this time but has used in past. cannabis : 2 blunts/day tobacco : stopped smoking in february, on last visit to detox here. benzo : no longer using street benzo PMHX : asthma admits t0 probation x 5 years since several months ago, was in outpt program [facility] [place] , Narcan kit but keep it at home. History Source: Patient Limitations to Obtaining History: No Limitations - Smoking History Smoking history: Never smoked Have you smoked in the past 12 months: No Aproximately how many cigarettes per day: 6 - Alcohol/Substance Use Hx Alcohol Use: Yes Admission [facility] Allergies/Adverse Reactions: Allergies Allergy/AdvReac Type Severity Reaction Status Date / Time No Known Allergies Allergy Verified 04/17/19 09:10 - Ebola screening Have you traveled outside of the country in the last 21 days: No (N) Have you had contact with anyone from an Ebola affected area: No Do you have a fever: No Patient History - Patient Medical History Hx Asthma: Yes (on meds) Hx Chronic Obstructive Pulmonary Disease (COPD): No Hx Cancer: No Hx Cardiac Disorders: No Hx Hypertension: No Hx Hypercholesterolemia: No Hx Pacemaker: No HX Cerebrovascular Accident: No Hx Seizures: No Hx Dementia: No Hx Diabetes: No Hx Gastrointestinal Disorders: No Hx Liver Disease: No Hx Genitourinary Disorders: No Hx Sexually Transmitted Disorders: No Hx Renal Disease (ESRD): No Hx Thyroid Disease: No Hx Human Immunodeficiency Virus (HIV): No (last in 2014 negative) Hx Hepatitis C: No Hx Depression: Yes (feels stress, insomnia) Hx Suicide Attempt: No Hx Bipolar Disorder: No Hx Schizophrenia: No - Patient Surgical History Past Surgical History: No Hx Neurologic Surgery: No Hx Cataract Extraction: No Hx Cardiac Surgery: No Hx Lung Surgery: No Hx Breast Surgery: No Hx Breast Biopsy: No Hx Abdominal Surgery: No Hx Appendectomy: No Hx Cholecystectomy: No Hx Genitourinary Surgery: No Hx Section: No Hx Orthopedic Surgery: No Anesthesia Reaction: No - PPD History Date: 07/21/18 Results: 0mm - Smoking Cessation Smoking history: Former smoker Have you smoked in the past 12 months: No Aproximately how many cigarettes per day: 0 Cigars Per Day: 0 Hx Chewing Tobacco Use: No Initiated information on smoking cessation: No - Substances abused Heroin Substance route: Injection Frequency: Daily Amount used: 1 bundle Age of first use: 21 Date of last use: 04/17/19 Alcohol Substance route: Oral Frequency: Daily Amount used: (2) 40oz of beer Age of first use: 12 Date of last use: 04/17/19 Other Other (specify): klonopin Substance route: Oral Frequency: Daily Amount used: 2) 1mg Age of first use: 21 Date of last use: 01/15/19 Marijuana/Hashish Substance route: Smoking Frequency: Daily Amount used: 2 blunts daily Age of first use: 12 Date of last use: 04/16/19 Cocaine Substance route: Inhalation Frequency: 1-2 times per week Amount used: 2 grams Age of first use: 18 Date of last use: 02/16/19 Admission Physical Exam [facility] - Vital Signs Vital Signs: Vital Signs - 24 hr 04/17/19 09:12 Temperature 97.6 F Pulse Rate 82 Respiratory 16 Rate Blood Pressure 136/93 - Physical General Appearance: Yes: No Apparent Distress, Tremorous, Irritable, Sweating, Anxious HEENTM: Yes: EOMI, Hearing grossly Normal, Normal ENT Inspection, Normocephalic , Normal Voice, SAVAN[place]H, Pharynx Normal, Tm's normal Respiratory: Yes: Chest Non-Tender, Lungs Clear, Normal Breath Sounds, No Respiratory Distress, No Accessory Muscle Use, Wheezing Neck: Yes: No masses,lesions,Nodules, Supple, Trachea in good position Breast: Yes: Breast Exam Deferred Cardiology: Yes: Regular Rhythm, Regular Rate, S1, S2 Abdominal: Yes: Normal Bowel Sounds, Non Tender, Flat, Soft Genitourinary: Yes: Within Normal Limits Back: Yes: Normal Inspection Musculoskeletal: Yes: full range of Motion, Gait Steady, Pelvis Stable Extremities: Yes: Normal Capillary Refill, Normal Inspection, Normal Range of Motion, Non-Tender Neurological: Yes: paperhanger assistant II-XII NML intact, Fully Oriented, Alert, Motor Strength 5/5, Normal Mood/Affect, Normal Response Integumentary: Yes: Normal Color, Warm Lymphatic: Yes: Within Normal Limits - Diagnostic (1) Alcohol dependence with uncomplicated withdrawal Current Visit: Yes Status: Acute (2) Opioid dependence with withdrawal Current Visit: Yes Status: Acute (3) Asthma Current Visit: Yes Status: Chronic Qualifiers: Asthma severity: mild Asthma persistence: intermittent Asthma complication type: with status asthmaticus Qualified Code(s): J45.22 - Mild intermittent asthma with status asthmaticus (4) Cannabis dependence Current Visit: Yes Status: Chronic Cleared for Admission [facility] - Detox or Rehab [facility] Level of Care: Medically Managed Detox Regimen/Protocol: Methadone/Valium Claeared for Rehab Admission: No Screened but not Admitted - Documentation of Visit Screened but not Admitted: No Breathalyzer - Breathalyzer Breathalyzer: 0 (only one waller this morning) Urine Drug Screen - Test Device Lot number: [id number] Expiration date: 11/07/20 - Control Is test valid?: Yes - Results Drug screen NEGATIVE: No Urine drug screen results: THC-Marijuana, FEN-Fentanyl, MOP-Opiates, BZO- Benzodiazepines Inpatient Rehab Admission - Rehab Decision to Admit Inpatient rehab admission?: No
[2019-04-17] MEDS ORDERED: BISMUTH SUBSALICYLATE 262 MG/15 ML BTL PO PRN (10:02)
[2019-04-17] MEDS ORDERED: MAG HYDROX/AL HYDROX/SIMETH 30 ML UNIT-DOSE CUP PO PRN (10:02)
[2019-04-17] MEDS ORDERED: ACETAMINOPHEN 325 MG TABLET (FP) PO PRN ×2 (10:02)
[2019-04-17] MEDS ORDERED: IBUPROFEN 400 MG TABLET (FP) PO PRN (10:02)
[2019-04-17] MEDS ORDERED: cloNIDine HCL 0.1 MG TABLET PO PRN (10:02)
[2019-04-17] MEDS ORDERED: MAGNESIUM CITRATE 300 ML BOTTLE PO PRN (10:02)
[2019-04-17] MEDS ORDERED: MAGNESIUM HYDROX 2400MG/30ML ORAL SUSPENSION 30 ML CUP PO PRN (10:02)
[2019-04-17] MEDS ORDERED: MENTHOL/PHENOL 1 EACH UD MM PRN (10:02)
[2019-04-17] MEDS ORDERED: METHADONE HCL 10 MG TABLET (FOR DETOX USE ONLY) PO ONE (10:30)
[2019-04-17] MEDS: diazePAM 5 MG TABLET PO SCH ×2 (13:52→22:24)
[2019-04-17 15:42] LABS: HEMATOCRIT 39.4 % (35.4-49); HEMOGLOBIN 13.3 GM/dL (11.7-16.9); MCH 28.3 pg (25.7-33.7); MCHC 33.7 g/dl (32.0-35.9); MEAN CELL VOLUME 83.8 fl (80-96); MEAN PLT VOLUME 7.7 fl (7.5-11.1); PLATELET COUNT 356 K/MM3 (134-434); RDW 13.9 % (11.9-15.9); WHITE BLOOD COUNT 5.6 K/mm3 (4.0-10.0)
[2019-04-17 16:16] LABS: ALBUMIN 3.6 g/dl (3.4-5.0); BILIRUBIN,TOTAL 0.3 mg/dL (0.2-1); BLOOD UREA NITROGEN 11.9 mg/dL (7-18); CREATININE 0.9 mg/dL (0.55-1.3); POTASSIUM 3.8 mmol/L (3.5-5.1); TOT PROT 7.3 g/dl (6.4-8.2)
[2019-04-17] MEDS: ALBUTEROL SO4 8 GM HFA INHALER IH PRN (22:22)
[2019-04-17] MEDS: METHOCARBAMOL 500 MG TABLET PO PRN (22:23)
[2019-04-17] MEDS: THIAMINE HCL 100 MG TABLET (FP) PO SCH (22:24)
[2019-04-17] MEDS: ALBUTEROL SO4 0.083% IH SOL 2.5 MG/3 ML VIAL.NEB. NEB SCH (22:49)
[2019-04-18] MEDS: diazePAM 5 MG TABLET PO SCH ×3 (05:37→22:22)
[2019-04-18] MEDS: METHOCARBAMOL 500 MG TABLET PO PRN ×3 (05:37→22:23)
[2019-04-18] MEDS ORDERED: METHADONE HCL 5 MG TABLET (FOR DETOX USE ONLY) ONE (08:56)
[2019-04-18] MEDS ORDERED: METHADONE HCL 10 MG TABLET (FOR DETOX USE ONLY) ONE (08:56)
[2019-04-18] MEDS: PRENATAL VITAMINS W/ FOLIC ACID TABLET (FP) PO SCH (09:35)
[2019-04-18] MEDS ORDERED: METHADONE (DETOX) 20 MG, METHADONE (DETOX) 5 MG PO ONE (10:00)
--- NOTE | 2019-04-18 10:01 | PN ---
[facility] CIWA - CIWA Score Nausea/Vomitin-No Nausea/No Vomiting Muscle Tremors: 3 Anxiety: 2 Agitation: 3 Paroxysmal Sweats: 2 Orientation: 0-Oriented Tacttile Disturbances: 0-None Auditory Disturbances: 0-None Visual Disturbances: 0-None Headache: 0-None Present CIWA-Ar Total Score: 10 [facility] COWS - Scale Resting Pulse: 0= [place] 80 or Below Sweatin= Chills/Flushing Restless Observation: 1= Difficult to Sit Still Pupil Size: 0= Normal to Room Light Bone or Joint Aches: 2= Severe Diffuse Aches Runny Nose/ Eye Tearin= Runny Nose/Eyes GI Upset > 30mins: 0= None Tremor Observation of Outstretched Hands: 1= Tremor [place], Not Seen Yawning Observation: 1= 1-2x During Session Anxiety or Irritability: 2=Irritable/Anxious Goose Flesh Skin: 0=Smooth Skin COWS Score: 10 [facility] Progress Note (SOAP) Subjective: sweats shakes interrupted sleep body aches irritable teary eyes nasal congestion Objective: 04/18/19 10:00 Vital Signs Temperature 97.9 F 04/18/19 09:31 Pulse Rate 78 04/18/19 09:31 Respiratory Rate 17 04/18/19 09:31 Blood Pressure 131/80 04/18/19 09:31 O2 Sat by Pulse Oximetry (%) Laboratory Tests 04/17/19 04/17/19 04/17/19 10:15 10:15 10:15 WBC 5.6 RBC 4.70 Hgb 13.3 Hct 39.4 MCV 83.8 MCH 28.3 MCHC 33.7 RDW 13.9 Plt Count 356 D MPV 7.7 Sodium 139 Potassium 3.8 Chloride 106 Carbon Dioxide 25 Anion Gap 9 BUN 11.9 Creatinine 0.9 Est GFR (CKD-EPI)AfAm 132.37 Est GFR (CKD-EPI)NonAf 114.21 Random Glucose 84 Calcium 9.0 Total Bilirubin 0.3 AST 13 L ALT 29 Alkaline Phosphatase 76 Total Protein 7.3 Albumin 3.6 RPR Titer Nonreactive aaox3 ambulating no acute distress Assessment: 04/18/19 10:00 withdrawals Plan: continue detox increase fluids actifed prn
[2019-04-18] MEDS ORDERED: P-EPHED 60MG/TRIPROLIDI 2.5MG TABLET PO PRN (10:07)
[2019-04-18] MEDS: diazePAM 5 MG TABLET PO PRN (18:08)
[2019-04-18] MEDS: THIAMINE HCL 100 MG TABLET (FP) PO SCH (22:22)
[2019-04-18] MEDS: MELATONIN 5 MG TABLETS PO PRN (22:22)
[2019-04-19] MEDS: diazePAM 5 MG TABLET PO SCH ×2 (06:34→17:38)
[2019-04-19] MEDS: METHOCARBAMOL 500 MG TABLET PO PRN ×2 (06:34→21:58)
[2019-04-19] MEDS: ALBUTEROL SO4 8 GM HFA INHALER IH PRN ×2 (06:36→21:58)
[2019-04-19] MEDS: PRENATAL VITAMINS W/ FOLIC ACID TABLET (FP) PO SCH (09:48)
[2019-04-19] MEDS: diazePAM 5 MG TABLET PO PRN ×2 (09:50→21:58)
[2019-04-19] MEDS ORDERED: METHADONE HCL 10 MG TABLET (FOR DETOX USE ONLY) PO ONE (10:00)
--- NOTE | 2019-04-19 10:48 | PN ---
[facility] CIWA - CIWA Score Nausea/Vomitin-No Nausea/No Vomiting Muscle Tremors: 3 Anxiety: 2 Agitation: 2 Paroxysmal Sweats: 2 Orientation: 0-Oriented Tacttile Disturbances: 0-None Auditory Disturbances: 0-None Visual Disturbances: 0-None Headache: 0-None Present CIWA-Ar Total Score: 9 [facility] COWS - Scale Resting Pulse: 1= [place] 81-100 Sweatin= Chills/Flushing Restless Observation: 1= Difficult to Sit Still Pupil Size: 0= Normal to Room Light Bone or Joint Aches: 1= Mild Discomfort Runny Nose/ Eye Tearin= Nasal Congestion GI Upset > 30mins: 0= None Tremor Observation of Outstretched Hands: 1= Tremor [place], Not Seen Yawning Observation: 0= None Anxiety or Irritability: 1=Feels Anxious/Irritable Goose Flesh Skin: 0=Smooth Skin COWS Score: 7 S Progress Note (SOAP) Subjective: sweats mild shakes interrupted sleep body aches Objective: 04/19/19 10:48 Vital Signs Temperature 97.5 F L 04/19/19 10:11 Pulse Rate 90 04/19/19 10:11 Respiratory Rate 18 04/19/19 10:11 Blood Pressure 138/87 04/19/19 10:11 O2 Sat by Pulse Oximetry (%) Laboratory Tests 04/17/19 04/17/19 04/17/19 10:15 10:15 10:15 WBC 5.6 RBC 4.70 Hgb 13.3 Hct 39.4 MCV 83.8 MCH 28.3 MCHC 33.7 RDW 13.9 Plt Count 356 D MPV 7.7 Sodium 139 Potassium 3.8 Chloride 106 Carbon Dioxide 25 Anion Gap 9 BUN 11.9 Creatinine 0.9 Est GFR (CKD-EPI)AfAm 132.37 Est GFR (CKD-EPI)NonAf 114.21 Random Glucose 84 Calcium 9.0 Total Bilirubin 0.3 AST 13 L ALT 29 Alkaline Phosphatase 76 Total Protein 7.3 Albumin 3.6 RPR Titer Nonreactive aaox3 ambulating no acute distress Assessment: 04/19/19 10:48 withdrawals Plan: continue detox increase fluids
[2019-04-19] MEDS: THIAMINE HCL 100 MG TABLET (FP) PO SCH (21:58)
[2019-04-19] MEDS: MELATONIN 5 MG TABLETS PO PRN (21:59)
[2019-04-20] MEDS: METHOCARBAMOL 500 MG TABLET PO PRN ×2 (05:46→23:39)
[2019-04-20] MEDS ORDERED: diazePAM 5 MG TABLET PO ONE (06:00)
[2019-04-20] MEDS ORDERED: METHADONE HCL 5 MG TABLET (FOR DETOX USE ONLY) ONE (08:43)
[2019-04-20] MEDS ORDERED: METHADONE HCL 10 MG TABLET (FOR DETOX USE ONLY) ONE (08:43)
[2019-04-20] MEDS: PRENATAL VITAMINS W/ FOLIC ACID TABLET (FP) PO SCH (09:30)
[2019-04-20] MEDS: diazePAM 5 MG TABLET PO PRN (09:33)
[2019-04-20] MEDS ORDERED: METHADONE (DETOX) 10 MG, METHADONE (DETOX) 5 MG PO ONE (10:00)
--- NOTE | 2019-04-20 11:49 | PN ---
[facility] CIWA - CIWA Score Nausea/Vomitin-No Nausea/No Vomiting Muscle Tremors: 2 Anxiety: 1-Mildly Anxious Agitation: 2 Paroxysmal Sweats: 2 Orientation: 0-Oriented Tacttile Disturbances: 0-None Auditory Disturbances: 0-None Visual Disturbances: 0-None Headache: 0-None Present CIWA-Ar Total Score: 7 [facility] COWS - Scale Resting Pulse: 1= [place] 81-100 Sweatin= Chills/Flushing Restless Observation: 1= Difficult to Sit Still Pupil Size: 0= Normal to Room Light Bone or Joint Aches: 1= Mild Discomfort Runny Nose/ Eye Tearin= Nasal Congestion GI Upset > 30mins: 0= None Tremor Observation of Outstretched Hands: 1= Tremor [place], Not Seen Yawning Observation: 1= 1-2x During Session Anxiety or Irritability: 1=Feels Anxious/Irritable Goose Flesh Skin: 0=Smooth Skin COWS Score: 8 S Progress Note (SOAP) Subjective: Vital Signs Temperature 97.5 F L 04/20/19 09:34 Pulse Rate 81 04/20/19 09:34 Respiratory Rate 18 04/20/19 09:34 Blood Pressure 140/89 04/20/19 09:34 O2 Sat by Pulse Oximetry (%) Laboratory Tests 04/17/19 04/17/19 04/17/19 10:15 10:15 10:15 WBC 5.6 RBC 4.70 Hgb 13.3 Hct 39.4 MCV 83.8 MCH 28.3 MCHC 33.7 RDW 13.9 Plt Count 356 D MPV 7.7 Sodium 139 Potassium 3.8 Chloride 106 Carbon Dioxide 25 Anion Gap 9 BUN 11.9 Creatinine 0.9 Est GFR (CKD-EPI)AfAm 132.37 Est GFR (CKD-EPI)NonAf 114.21 Random Glucose 84 Calcium 9.0 Total Bilirubin 0.3 AST 13 L ALT 29 Alkaline Phosphatase 76 Total Protein 7.3 Albumin 3.6 RPR Titer Nonreactive aaox3 ambulating no acute distress Objective: 04/20/19 11:48 Vital Signs Temperature 97.5 F L 04/20/19 09:34 Pulse Rate 81 04/20/19 09:34 Respiratory Rate 18 04/20/19 09:34 Blood Pressure 140/89 04/20/19 09:34 O2 Sat by Pulse Oximetry (%) Laboratory Tests 04/17/19 04/17/19 04/17/19 10:15 10:15 10:15 WBC 5.6 RBC 4.70 Hgb 13.3 Hct 39.4 MCV 83.8 MCH 28.3 MCHC 33.7 RDW 13.9 Plt Count 356 D MPV 7.7 Sodium 139 Potassium 3.8 Chloride 106 Carbon Dioxide 25 Anion Gap 9 BUN 11.9 Creatinine 0.9 Est GFR (CKD-EPI)AfAm 132.37 Est GFR (CKD-EPI)NonAf 114.21 Random Glucose 84 Calcium 9.0 Total Bilirubin 0.3 AST 13 L ALT 29 Alkaline Phosphatase 76 Total Protein 7.3 Albumin 3.6 RPR Titer Nonreactive aaox3 ambulating no acute distress Assessment: 04/20/19 11:49 withdrawals Plan: continue detox increase fluids
[2019-04-20] MEDS: hydrOXYzine PAMOATE 25 MG CAPSULE (FP) PO PRN ×2 (17:43→23:39)
[2019-04-20] MEDS: ALBUTEROL SO4 8 GM HFA INHALER IH PRN (22:18)
[2019-04-20] MEDS: MELATONIN 5 MG TABLETS PO PRN (23:40)
[2019-04-20] MEDS: THIAMINE HCL 100 MG TABLET (FP) PO SCH (23:50)
[2019-04-21] MEDS: ALBUTEROL SO4 0.083% IH SOL 2.5 MG/3 ML VIAL.NEB. NEB SCH (00:47)
[2019-04-21 09:32] VITALS: BP 132/72; PULSE 82; TEMP 97.7
[2019-04-21] MEDS ORDERED: METHADONE HCL 10 MG TABLET (FOR DETOX USE ONLY) PO ONE (10:00)
[2019-04-21] MEDS ORDERED: METHADONE HCL 5 MG TABLET (FOR DETOX USE ONLY) PO ONE (10:18)
[2019-04-21] MEDS: PRENATAL VITAMINS W/ FOLIC ACID TABLET (FP) PO SCH (10:41)
--- NOTE | 2019-04-21 15:18 | DS ---
[facility] Detox Discharge Summary Admission Date: 04/17/19 Discharge Date: 04/21/19 - History Present History: Alcohol Dependence, Cannabis Dependence, Opioid Dependence Additional Comments: Patient completed detox successfully. Patient scheduled for discharge tomorrow but requested to be discharged today instead so that he can get his belongings from his apartment as he told his Counselor and Household Manager that he will be evicted and has to bring his stuff to his mother. Patient scheduled for inpatient rehab at [facility] tomorrow and agreed to go there in the morning. Patient denies any withdrawal sxs. Patient agreed to have methadone decreased from 10mg to 5mg so that he can be discharged. Patient discharged in stable condition and without any complaints. Patient educated on abstaining from illicit drug use as he is expected to be admitted to rehab tomorrow morning. Pertinent Past History: Asthma - Physical Exam Results Vital Signs: Vital Signs Temperature 97.7 F 04/21/19 09:31 Pulse Rate 82 04/21/19 09:31 Respiratory Rate 18 04/21/19 09:31 Blood Pressure 132/72 04/21/19 09:31 O2 Sat by Pulse Oximetry (%) Pertinent Admission Physical Exam Findings: Withdrawal sxs Laboratory Tests 04/17/19 04/17/19 04/17/19 10:15 10:15 10:15 WBC 5.6 RBC 4.70 Hgb 13.3 Hct 39.4 MCV 83.8 MCH 28.3 MCHC 33.7 RDW 13.9 Plt Count 356 D MPV 7.7 Sodium 139 Potassium 3.8 Chloride 106 Carbon Dioxide 25 Anion Gap 9 BUN 11.9 Creatinine 0.9 Est GFR (CKD-EPI)AfAm 132.37 Est GFR (CKD-EPI)NonAf 114.21 Random Glucose 84 Calcium 9.0 Total Bilirubin 0.3 AST 13 L ALT 29 Alkaline Phosphatase 76 Total Protein 7.3 Albumin 3.6 RPR Titer Nonreactive Labs reviewed - Treatment Hospital Course: Detox Protocol Followed, Detoxed Safely, Responded well, Discharged Condition Good, Rehab Referral Accepted - Medication Discharge Medications: Ambulatory Orders Albuterol Sulfate Inhaler - [Ventolin HFA Inhaler -] 2 inh IH QID 01/27/18 Naloxone HCl [Narcan] 4 mg NS ASDIR PRN #1 spray 02/25/19 Albuterol 0.083% Nebulizer [place] [Ventolin 0.083% Nebulizer Soln -] 1 amp NEB HS 04/17/19 - Diagnosis (1) Alcohol dependence with uncomplicated withdrawal Status: Acute (2) Opioid dependence with withdrawal Status: Acute (3) Asthma Status: Chronic Qualifiers: Asthma severity: mild Asthma persistence: intermittent Asthma complication type: with status asthmaticus Qualified Code(s): J45.22 - Mild intermittent asthma with status asthmaticus (4) Cannabis dependence Status: Chronic (5) Insomnia Status: Chronic Qualifiers: Insomnia type: unspecified Qualified Code(s): G47.00 - Insomnia, unspecified - AMA Did Patient Leave Against Medical Advice: No (Accepted admission to [facility] tomorrow)
[2019-04-22] MEDS ORDERED: METHADONE HCL 5 MG TABLET (FOR DETOX USE ONLY) PO ONE (06:00)
== END 2019-04-21 11:17 | disposition home or self-care (01) | DRG 773 ==
LOC: YASAS 08:38 → Y6N 10:12
PROVIDERS: ADMIT Allergy & Immunology; ATTEND Allergy & Immunology
PROC: HZ2ZZZZ Detoxification Services for Substance Abuse Treatment (ICD-10-PCS; principal; 2019-04-17)
DX: F11.23 Opioid dependence with withdrawal (principal); F10.230 Alcohol dependence with withdrawal, uncomplicated; F12.20 Cannabis dependence, uncomplicated; F32.9 Major depressive disorder, single episode, unspecified; J45.22 Mild intermittent asthma with status asthmaticus; G47.00 Insomnia, unspecified; Z87.891 Personal history of nicotine dependence
CPT/HCPCS: 36415; 80053; 85027; 86593; 94640; J0735

== ENCOUNTER 2019-10-19 10:18 | Inpatient (IN) | payer OTHER ==
--- NOTE | 2019-10-19 11:02 | BHS.RME ---
Substance Use & Tx History - Last Treatment Date of last treatment: 09/24/19 Where was last treatment: Detox Physical/Psych/Mental Status - Behavior General Behavior: Increased activity (restlessness, agitation) Eye Contact: Normal Other Behaviors: Mannerisms - Cooperativeness Cooperativeness: Cooperative - Thinking Thought Processes: Tight, Logical, Goal Directed Thought content: Future oriented - Physical Health Problems Is patient presently having any pain?: Yes Does patient presently have any injuries (include location): No Does patient currently have a fever: No COWS - Scale Resting Pulse: 1= [place] 81-100 Sweatin= Chills/Flushing Restless Observation: 1= Difficult to Sit Still Pupil Size: 1= Pupils >than Normal Bone or Joint Aches: 2= Severe Diffuse Aches Runny Nose/ Eye Tearin= None GI Upset > 30mins: 1= Stomach Cramp Tremor Observation: 1= Tremor [place], Not Seen Yawning Observation: 1= 1-2x During Session Anxiety or Irritability: 2=Irritable/Anxious Goose Flesh Skin: 0=Smooth Skin COWS Score: 11 CIWA Nausea/Vomitin-Mild Nausea/No Vomiting Muscle Tremors: 2 Anxiety: 2 Agitation: 2 Paroxysmal Sweats: 2 Orientation: 0-Oriented Tacttile Disturbances: 1-Very Mild Itch/Numbness Auditory Disturbances: 0-None Visual Disturbances: 0-None Headache: 2-Mild CIWA-Ar Total Score: 12 Treatment Recommendation - Level of Care Level of Care: Opioid Treatment Program (OTP)
[2019-10-19 11:20] VITALS: BMI 31.3
--- NOTE | 2019-10-19 11:31 | HP ---
COWS - Scale Resting Pulse: 1= [place] 81-100 Sweatin= Chills/Flushing Restless Observation: 1= Difficult to Sit Still Pupil Size: 1= Pupils >than Normal Bone or Joint Aches: 2= Severe Diffuse Aches Runny Nose/ Eye Tearin= None GI Upset > 30mins: 1= Stomach Cramp Tremor Observation: 1= Tremor [place], Not Seen Yawning Observation: 1= 1-2x During Session Anxiety or Irritability: 2=Irritable/Anxious Goose Flesh Skin: 0=Smooth Skin COWS Score: 11 CIWA Score Nausea/Vomitin-Mild Nausea/No Vomiting Muscle Tremors: 2 Anxiety: 2 Agitation: 2 Paroxysmal Sweats: 2 Orientation: 0-Oriented Tacttile Disturbances: 1-Very Mild Itch/Numbness Auditory Disturbances: 0-None Visual Disturbances: 0-None Headache: 2-Mild CIWA-Ar Total Score: 12 - Admission Criteria OASAS Guidelines: Admission for Medically Managed Detox: Requires at least one of the followin. CIWA greater than 12 2. Seizures within the past 24 hours 3. Delirium tremens within the past 24 hours 4. Hallucinations within the past 24 hours 5. Acute intervention needed for co occurring medical disorder 6. Acute intervention needed for co occurring psychiatric disorder 7. Severe withdrawal that cannot be handled at a lower level of care (continued vomiting, continued diarrhea, abnormal vital signs) requiring intravenous medication and/or fluids 8. Patient presents the following: CIWA greater than 12 Admission Criteria Met: Admission criteria met Admitting History and Physical - Past Surgical History Past Surgical History: Yes: None - Smoking History Smoking history: Former smoker Have you smoked in the past 12 months: No Aproximately how many cigarettes per day: 0 If you are a former smoker, when did you quit?: 2015 - Alcohol/Substance Use Hx Alcohol Use: Yes Number of Drinks Daily: 5 History of Substance Use: reports: Heroin - Social History ADL: Independent Occupation: construction director unemployed History of Recent Travel: No Admission ROS S - HPI Chief Complaint: I wanna get better and I wanna go to rehab. Allergies/Adverse Reactions: Allergies Allergy/AdvReac Type Severity Reaction Status Date / Time No Known Allergies Allergy Verified 10/19/19 11:17 History of Present Illness: 29 year old man with alcohol and heroin use presents for detox. He denies blackouts, seizure or overdose Exam Limitations: No Limitations - Ebola screening Have you traveled outside of the country in the last 21 days: No Have you had contact with anyone from an Ebola affected area: No Have you been sick,other than usual withdrawal symptoms: No Do you have a fever: No - Review of Systems Constitutional: Chills EENT: reports: Nose Congestion Respiratory: reports: No Symptoms reported Cardiac: reports: No Symptoms Reported GI: reports: Nausea, Abdominal cramping : reports: No Symptoms Reported Musculoskeletal: reports: Back Pain, Muscle Pain, Muscle Weakness Integumentary: reports: Sweating Neuro: reports: Tremors Endocrine: reports: No Symptoms Reported Hematology: reports: No Symptoms Reported Psychiatric: reports: Anxious, Depressed Other Systems: Reviewed and Negative (denies psychiatrist referral) Patient History - Patient Medical History Hx Anemia: No Hx Asthma: Yes Hx Chronic Obstructive Pulmonary Disease (COPD): No Hx Cancer: No Hx Cardiac Disorders: No Hx Hypertension: No Hx Hypercholesterolemia: No Hx Pacemaker: No HX Cerebrovascular Accident: No Hx Seizures: No Hx Dementia: No Hx Diabetes: No Hx Gastrointestinal Disorders: No Hx Liver Disease: No Hx Genitourinary Disorders: No Hx Sexually Transmitted Disorders: No Hx Renal Disease (ESRD): No Hx Thyroid Disease: No Hx Human Immunodeficiency Virus (HIV): No Hx Hepatitis C: No Hx Depression: No Hx Suicide Attempt: No Hx Bipolar Disorder: No Hx Schizophrenia: No - Patient Surgical History Past Surgical History: No Anesthesia Reaction: No - PPD History Previous Implant?: Yes Documented Results: Negative w/proof Implanted On Prior R Admission?: Yes Date: 09/26/19 Results: 0 PPD to be Administered?: No - Smoking Cessation Smoking history: Former smoker Have you smoked in the past 12 months: No Aproximately how many cigarettes per day: 0 If you are a former smoker, when did you quit?: 2014 Cigars Per Day: 0 Hx Chewing Tobacco Use: No Initiated information on smoking cessation: No - Substances abused Alcohol Substance route: Oral Frequency: Daily Amount used: BEER- 5 18OZ Age of first use: 12 Date of last use: 10/19/19 Heroin Substance route: Inhalation Frequency: Daily Amount used: 1 BUNDLE Age of first use: 24 Date of last use: 10/19/19 Admission Physical Exam BHS - Vital Signs Vital Signs: Vital Signs - 24 hr 10/19/19 11:17 Temperature 97.6 F Pulse Rate 88 Respiratory 18 Rate Blood Pressure 123/76 - Physical General Appearance: Yes: No Apparent Distress HEENTM: Yes: Hearing grossly Normal, Normocephalic, Normal Voice Respiratory: Yes: Chest Non-Tender, Lungs Clear, No Accessory Muscle Use Neck: Yes: No masses,lesions,Nodules, Supple Breast: Yes: Breast Exam Deferred Cardiology: Yes: Regular Rhythm, Regular Rate Abdominal: Yes: Normal Bowel Sounds, Non Tender, Soft Genitourinary: Yes: Within Normal Limits Back: Yes: Normal Inspection Musculoskeletal: Yes: Back pain, Muscle Pain, Muscle weakness Extremities: Yes: Tremors Neurological: Yes: lead relay tester II-XII NML intact, Fully Oriented, Alert, Motor Strength 5/5, Normal Mood/Affect, Normal Response Integumentary: Yes: [place], Track [place] Lymphatic: Yes: Within Normal Limits - Diagnostic (1) Alcohol dependence with uncomplicated withdrawal Current Visit: Yes Status: Acute (2) Opioid dependence with withdrawal Current Visit: Yes Status: Acute (3) Asthma Current Visit: Yes Status: Chronic Qualifiers: Asthma severity: mild Asthma persistence: intermittent Asthma complication type: with status asthmaticus Qualified Code(s): J45.22 - Mild intermittent asthma with status asthmaticus Cleared for Admission [facility] - Detox or Rehab [facility] Level of Care: Medically Managed Detox Regimen/Protocol: Methadone/Valium Claeared for Rehab Admission: No Breathalyzer - Breathalyzer Breathalyzer: 0.014 Urine Drug Screen - Test Device Lot number: [id number] Expiration date: 12/08/20 - Control Is test valid?: Yes - Results Drug screen NEGATIVE: No Urine drug screen results: THC-Marijuana, YUNIEL-Cocaine, FEN-Fentanyl, MOP- Opiates, MTD-Methadone Inpatient Rehab Admission - Rehab Decision to Admit Inpatient rehab admission?: No
[2019-10-19] MEDS ORDERED: MAGNESIUM CITRATE 300 ML BOTTLE PO PRN (11:32)
[2019-10-19] MEDS ORDERED: ACETAMINOPHEN 325 MG TABLET (FP) PO PRN ×2 (11:32)
[2019-10-19] MEDS ORDERED: IBUPROFEN 400 MG TABLET (FP) PO PRN (11:32)
[2019-10-19] MEDS ORDERED: BISMUTH SUBSALICYLATE 524 MG/30 ML UD PO PRN (11:32)
[2019-10-19] MEDS ORDERED: MENTHOL/PHENOL 1 EACH UD MM PRN (11:32)
[2019-10-19] MEDS ORDERED: MAG HYDROX/AL HYDROX/SIMETH 30 ML UNIT-DOSE CUP PO PRN (11:32)
[2019-10-19] MEDS ORDERED: MAGNESIUM HYDROX 2400MG/30ML ORAL SUSPENSION 30 ML CUP PO PRN (11:32)
[2019-10-19] MEDS ORDERED: cloNIDine HCL 0.1 MG TABLET PO PRN (11:32)
[2019-10-19] MEDS ORDERED: NALOXONE HCL 0.4 MG/ML VIAL IM PRN (11:32)
[2019-10-19] MEDS ORDERED: METHADONE HCL 10 MG TABLET (FOR DETOX USE ONLY) PO ONE (11:32)
[2019-10-19] MEDS ORDERED: ALBUTEROL SO4 HFA INHALER IH PRN (11:35)
[2019-10-19] MEDS: diazePAM 5 MG TABLET PO SCH ×2 (13:21→21:46)
[2019-10-19] MEDS: diazePAM 5 MG TABLET PO PRN (18:33)
[2019-10-19] MEDS: THIAMINE HCL 100 MG TABLET (FP) PO SCH (21:46)
[2019-10-19] MEDS: METHOCARBAMOL 500 MG TABLET PO PRN (21:46)
[2019-10-19] MEDS: MELATONIN 5 MG TABLETS PO SCH (21:46)
[2019-10-20] MEDS: diazePAM 5 MG TABLET PO SCH ×3 (05:38→21:38)
[2019-10-20] MEDS ORDERED: METHADONE HCL 5 MG TABLET (FOR DETOX USE ONLY) ONE (08:36)
[2019-10-20] MEDS ORDERED: METHADONE HCL 10 MG TABLET (FOR DETOX USE ONLY) ONE (08:37)
[2019-10-20] MEDS ORDERED: METHADONE (DETOX) 20 MG, METHADONE (DETOX) 5 MG PO ONE (10:00)
[2019-10-20] MEDS: PRENATAL VITAMINS W/ FOLIC ACID TABLET (FP) PO SCH (10:13)
[2019-10-20 11:05] LABS: HEMATOCRIT 34.8 % (35.4-49); HEMOGLOBIN 11.5 GM/dL (11.7-16.9); MEAN CELL VOLUME 81.8 fl (80-96); MEAN PLT VOLUME 7.8 fl (7.5-11.1); PLATELET COUNT 316 K/MM3 (134-434); RBC 4.26 M/mm3 (4.00-5.60); RDW 13.8 % (11.9-15.9); WHITE BLOOD COUNT 5.2 K/mm3 (4.0-10.0)
[2019-10-20 11:10] LABS: ALBUMIN 3.2 g/dl (3.4-5.0); BILIRUBIN,TOTAL 0.3 mg/dL (0.2-1); BLOOD UREA NITROGEN 10.8 mg/dL (7-18); CALCIUM 9.1 mg/dL (8.5-10.1); CREATININE 0.9 mg/dL (0.55-1.3); POTASSIUM 3.9 mmol/L (3.5-5.1); TOT PROT 7.1 g/dl (6.4-8.2)
--- NOTE | 2019-10-20 15:49 | PN ---
[facility] CIWA - CIWA Score Nausea/Vomitin-No Nausea/No Vomiting Muscle Tremors: 2 Anxiety: 3 Agitation: 2 Paroxysmal Sweats: 3 Orientation: 0-Oriented Tacttile Disturbances: 0-None Auditory Disturbances: 0-None Visual Disturbances: 0-None Headache: 0-None Present CIWA-Ar Total Score: 10 BHS COWS - Scale Resting Pulse: 0= [place] 80 or Below Sweatin= Chills/Flushing Restless Observation: 0= Sits Still Pupil Size: 0= Normal to Room Light Bone or Joint Aches: 2= Severe Diffuse Aches Runny Nose/ Eye Tearin= Runny Nose/Eyes GI Upset > 30mins: 1= Stomach Cramp Tremor Observation of Outstretched Hands: 2= Slight Tremor Visible Yawning Observation: 0= None Anxiety or Irritability: 2=Irritable/Anxious Goose Flesh Skin: 0=Smooth Skin COWS Score: 10 BHS Progress Note (SOAP) Subjective: Sweating, restless legs, interrupted sleep Objective: 10/20/19 15:46 Last Vital Signs Temp Pulse Resp BP Pulse Ox 97.8 F 80 18 126/74 100 10/20/19 12:50 10/20/19 12:50 10/20/19 12:50 10/20/19 12:50 10/20/19 12:50 Laboratory Tests 10/20/19 10/20/19 10/20/19 07:00 07:00 07:00 WBC 5.2 RBC 4.26 Hgb 11.5 L Hct 34.8 L MCV 81.8 MCH 27.0 MCHC 33.0 RDW 13.8 Plt Count 316 MPV 7.8 Sodium 139 Potassium 3.9 Chloride 106 Carbon Dioxide 26 Anion Gap 8 BUN 10.8 Creatinine 0.9 Est GFR (CKD-EPI)AfAm 132.37 Est GFR (CKD-EPI)NonAf 114.21 Random Glucose 103 Calcium 9.1 Total Bilirubin 0.3 AST 11 L ALT 19 Alkaline Phosphatase 71 Total Protein 7.1 Albumin 3.2 L Syphilis Serology Non-reactive Labs reviewed: mild anemia noted, mild hypoalbuminemia Assessment: 10/20/19 15:48 Withdrawal sxs Noted with mild anemia and hypoalbuminemia Plan: Continue detox Encouraged PO water intake Anemia, mild: could be r/t alcoholism, encourage abstinence from alcohol, continue vitamin Hypoalbuminemia: encourage diet
[2019-10-20] MEDS: diazePAM 5 MG TABLET PO PRN (17:54)
[2019-10-20] MEDS: METHOCARBAMOL 500 MG TABLET PO PRN (21:38)
[2019-10-20] MEDS: THIAMINE HCL 100 MG TABLET (FP) PO SCH (21:38)
[2019-10-20] MEDS: MELATONIN 5 MG TABLETS PO SCH (21:38)
[2019-10-21] MEDS: diazePAM 5 MG TABLET PO SCH ×2 (05:44→17:28)
[2019-10-21] MEDS ORDERED: METHADONE HCL 10 MG TABLET (FOR DETOX USE ONLY) PO ONE (10:00)
--- NOTE | 2019-10-21 10:18 | PN ---
[facility] CIWA - CIWA Score Nausea/Vomitin-No Nausea/No Vomiting Muscle Tremors: 3 Anxiety: 2 Agitation: 2 Paroxysmal Sweats: 2 Orientation: 0-Oriented Tacttile Disturbances: 0-None Auditory Disturbances: 0-None Visual Disturbances: 0-None Headache: 0-None Present CIWA-Ar Total Score: 9 BHS COWS - Scale Resting Pulse: 2= [place] 101-120 Sweatin= Chills/Flushing Restless Observation: 1= Difficult to Sit Still Pupil Size: 0= Normal to Room Light Bone or Joint Aches: 1= Mild Discomfort Runny Nose/ Eye Tearin= None GI Upset > 30mins: 0= None Tremor Observation of Outstretched Hands: 1= Tremor [place], Not Seen Yawning Observation: 1= 1-2x During Session Anxiety or Irritability: 2=Irritable/Anxious Goose Flesh Skin: 0=Smooth Skin COWS Score: 9 S Progress Note (SOAP) Subjective: sweats shakes interrupted sleep agitation restless Objective: 10/21/19 10:52 Vital Signs Temperature 97.5 F L 10/21/19 08:57 Pulse Rate 83 10/21/19 08:57 Respiratory Rate 20 10/21/19 08:57 Blood Pressure 132/78 10/21/19 08:57 O2 Sat by Pulse Oximetry (%) 100 10/21/19 05:51 Laboratory Tests 10/20/19 10/20/19 10/20/19 07:00 07:00 07:00 WBC 5.2 RBC 4.26 Hgb 11.5 L Hct 34.8 L MCV 81.8 MCH 27.0 MCHC 33.0 RDW 13.8 Plt Count 316 MPV 7.8 Sodium 139 Potassium 3.9 Chloride 106 Carbon Dioxide 26 Anion Gap 8 BUN 10.8 Creatinine 0.9 Est GFR (CKD-EPI)AfAm 132.37 Est GFR (CKD-EPI)NonAf 114.21 Random Glucose 103 Calcium 9.1 Total Bilirubin 0.3 AST 11 L ALT 19 Alkaline Phosphatase 71 Total Protein 7.1 Albumin 3.2 L Syphilis Serology Non-reactive aaox3 ambulating no acute distress Assessment: 10/21/19 10:52 withdrawals Plan: continue detox increase fluids
[2019-10-21] MEDS: PRENATAL VITAMINS W/ FOLIC ACID TABLET (FP) PO SCH (10:38)
[2019-10-21] MEDS: METHOCARBAMOL 500 MG TABLET PO PRN (10:39)
[2019-10-21] MEDS: diazePAM 5 MG TABLET PO PRN (10:43)
[2019-10-21] MEDS ORDERED: METOPROLOL TARTRATE 50 MG TABLET (FP) PO ONE (19:51)
--- NOTE | 2019-10-21 20:15 | PN ---
Progress Note (short form) - Note Progress Note: Paged by RN that patients Heart rate 180s. Went to assess patient. HR consistently 170s. patient endorsing shortness of breath and lightheadedness. No chest pain. VS upon exam: 136/100 RR 22 Pulse 175 I performed a Carotid massage as electrodes were being placed on patient. Before print out of EKG, rate was jumping from 80s-120s. Rhythm broke by the time EKG printed---> NSR 96 BPM, no ST-T wave abnormalities. DDx: SVT VS A-fib RVR Patient was admitted to [facility] for Heroine and Alcohol detox. Only PMH per patient is Asthma. Patient states that sometimes he can become tachy when he takes albuterol but never like this. Regardless, pt did not receive any albuterol today. Sign out given to Dr Ruthie Pena at [facility] ED. Will likely admit patient for Tele Obs monitoring for 24 hrs. Noam Becker M.D. PGY-3
[2019-10-21] MEDS: THIAMINE HCL 100 MG TABLET (FP) PO SCH (23:19)
[2019-10-21] MEDS: MELATONIN 5 MG TABLETS PO SCH (23:19)
--- NOTE | 2019-10-22 05:01 | PN ---
[facility] Progress Note Note: Patient came back from [facility] ER where he was sent to be evaluated for palpitations. Patient is asymptomatic and denies chest tightness, SOB, fatigue or any cardiac symptoms at this time. Regular rate and rhythm noted on assessment. As per [facility] ER, initial and repeat EKG's indicates normal sinus rhythm, no ST-T wave changes. CMP and CBC indicates no electrolyte abnormality, no anemia and no leukocytosis respectively. Vital Signs Temperature 97.9 F 10/22/19 04:08 Pulse Rate 87 10/22/19 04:08 Respiratory Rate 18 10/22/19 04:08 Blood Pressure 142/81 10/22/19 04:08 O2 Sat by Pulse Oximetry (%) 100 10/22/19 04:08 Action: Continue detox
[2019-10-22] MEDS ORDERED: diazePAM 5 MG TABLET PO ONE (06:00)
[2019-10-22] MEDS ORDERED: METHADONE HCL 5 MG TABLET (FOR DETOX USE ONLY) ONE (09:09)
[2019-10-22] MEDS ORDERED: METHADONE HCL 10 MG TABLET (FOR DETOX USE ONLY) ONE (09:09)
[2019-10-22] MEDS ORDERED: hydrOXYzine PAMOATE 25 MG CAPSULE (FP) PO PRN ×2 (09:36→09:37)
[2019-10-22] MEDS ORDERED: cloNIDine HCL 0.1 MG TABLET PO PRN (09:37)
[2019-10-22] MEDS ORDERED: METHADONE (DETOX) 10 MG, METHADONE (DETOX) 5 MG PO ONE (10:00)
[2019-10-22] MEDS: diazePAM 5 MG TABLET PO PRN (10:20)
[2019-10-22] MEDS: PRENATAL VITAMINS W/ FOLIC ACID TABLET (FP) PO SCH (10:21)
[2019-10-22] MEDS: cloNIDine HCL 0.1 MG TABLET PO SCH ×2 (10:22→20:59)
--- NOTE | 2019-10-22 10:58 | PN ---
[facility] CIWA - CIWA Score Nausea/Vomitin-No Nausea/No Vomiting Muscle Tremors: 1-None Visible, but [place] Anxiety: 2 Agitation: 2 Paroxysmal Sweats: 2 Orientation: 0-Oriented Tacttile Disturbances: 0-None Auditory Disturbances: 0-None Visual Disturbances: 0-None Headache: 0-None Present CIWA-Ar Total Score: 7 S COWS - Scale Resting Pulse: 0= [place] 80 or Below Sweatin= Chills/Flushing Restless Observation: 1= Difficult to Sit Still Pupil Size: 0= Normal to Room Light Bone or Joint Aches: 1= Mild Discomfort Runny Nose/ Eye Tearin= None GI Upset > 30mins: 0= None Tremor Observation of Outstretched Hands: 1= Tremor [place], Not Seen Yawning Observation: 0= None Anxiety or Irritability: 2=Irritable/Anxious Goose Flesh Skin: 0=Smooth Skin COWS Score: 6 S Progress Note (SOAP) Subjective: agitation anxiety heart is feeling better its not racing like yesterday. however, it feels fast at times. when i get anxiety sweats Objective: 10/22/19 10:50 Vital Signs Temperature 97.8 F 10/22/19 08:37 Pulse Rate 80 10/22/19 08:37 Respiratory Rate 19 10/22/19 08:37 Blood Pressure 114/68 10/22/19 08:37 O2 Sat by Pulse Oximetry (%) 100 10/22/19 05:56 Laboratory Tests 10/19/19 10/20/19 10/20/19 09:00 07:00 07:00 WBC 5.2 RBC 4.26 Hgb 11.5 L Hct 34.8 L MCV 81.8 MCH 27.0 MCHC 33.0 RDW 13.8 Plt Count 316 MPV 7.8 Sodium Potassium Chloride Carbon Dioxide Anion Gap BUN Creatinine Est GFR (CKD-EPI)AfAm Est GFR (CKD-EPI)NonAf Random Glucose Calcium Total Bilirubin AST ALT Alkaline Phosphatase Total Protein Albumin Syphilis Serology Non-reactive COVID-19 (HERRERA) Not detected 10/20/19 07:00 WBC RBC Hgb Hct MCV MCH MCHC RDW Plt Count MPV Sodium 139 Potassium 3.9 Chloride 106 Carbon Dioxide 26 Anion Gap 8 BUN 10.8 Creatinine 0.9 Est GFR (CKD-EPI)AfAm 132.37 Est GFR (CKD-EPI)NonAf 114.21 Random Glucose 103 Calcium 9.1 Total Bilirubin 0.3 AST 11 L ALT 19 Alkaline Phosphatase 71 Total Protein 7.1 Albumin 3.2 L Syphilis Serology COVID-19 (HERRERA) labs noted cardiac auscultation performed; heart beat tachy between 98-102. pt denies any SOB, chest pain, dizziness. ekg ordered, result show tachycardia 100. will repeat after pt has received medication ordered. aaox3 ambulating no acute distress Assessment: 10/22/19 10:53 withdrawals Plan: continue detox increase fluids ekg done; shows tachycardia. clonidine 0.1 mg bid with parameter ordered visitril 25mg prn repeat EKG for 2pm today for comparison
--- NOTE | 2019-10-22 11:14 | EKG ---
Test Reason : Blood Pressure : / mmHG Vent. Rate : 096 BPM Atrial Rate : 096 BPM P-R Int : 152 ms QRS Dur : 088 ms QT Int : 342 ms P-R-T Axes : 067 046 030 degrees QTc Int : 432 ms NORMAL SINUS RHYTHM NORMAL ECG WHEN COMPARED WITH ECG OF 19-JUL-2018 12:59, NO SIGNIFICANT CHANGE WAS FOUND Confirmed by MD HITCHCOCK MOYSES ([id number]) on 10/22/2019 11:13:28 AM Referred By: Confirmed By:SARAH HITCHCOCK MD
--- NOTE | 2019-10-22 15:58 | EKG ---
Test Reason : Blood Pressure : / mmHG Vent. Rate : 101 BPM Atrial Rate : 101 BPM P-R Int : 146 ms QRS Dur : 086 ms QT Int : 330 ms P-R-T Axes : 071 064 043 degrees QTc Int : 427 ms SINUS TACHYCARDIA LEFT ATRIAL ENLARGEMENT LEFT VENTRICULAR HYPERTROPHY ABNORMAL ECG Confirmed by MD NALDO, SARAH ([id number]) on 10/22/2019 3:57:39 PM Referred By: Confirmed By:SARAH HITCHCOCK MD
[2019-10-22] MEDS: MELATONIN 5 MG TABLETS PO SCH (20:59)
[2019-10-22] MEDS: THIAMINE HCL 100 MG TABLET (FP) PO SCH (20:59)
[2019-10-23] MEDS: PRENATAL VITAMINS W/ FOLIC ACID TABLET (FP) PO SCH (09:33)
[2019-10-23] MEDS: cloNIDine HCL 0.1 MG TABLET PO SCH (09:33)
--- NOTE | 2019-10-23 09:45 | PN ---
[facility] CIWA - CIWA Score Nausea/Vomitin-No Nausea/No Vomiting Muscle Tremors: None Anxiety: 1-Mildly Anxious Agitation: 0-Normal Activity Paroxysmal Sweats: No Perspiration Orientation: 0-Oriented Tacttile Disturbances: 0-None Auditory Disturbances: 0-None Visual Disturbances: 0-None Headache: 0-None Present CIWA-Ar Total Score: 1 S Progress Note (SOAP) Subjective: alert,no complaint Objective: 10/23/19 09:42 Vital Signs Temperature 96.9 F L 10/23/19 05:34 Pulse Rate 64 10/23/19 05:34 Respiratory Rate 20 10/23/19 05:34 Blood Pressure 105/61 10/23/19 05:34 O2 Sat by Pulse Oximetry (%) 98 10/23/19 05:34 10/23/19 09:42 Laboratory Last Values WBC 5.2 K/mm3 (4.0-10.0) 10/20/19 07:00 RBC 4.26 M/mm3 (4.00-5.60) 10/20/19 07:00 Hgb 11.5 GM/dL (11.7-16.9) L 10/20/19 07:00 Hct 34.8 % (35.4-49) L 10/20/19 07:00 MCV 81.8 fl (80-96) 10/20/19 07:00 MCH 27.0 pg (25.7-33.7) 10/20/19 07:00 MCHC 33.0 g/dl (32.0-35.9) 10/20/19 07:00 RDW 13.8 % (11.9-15.9) 10/20/19 07:00 Plt Count 316 K/MM3 (134-434) 10/20/19 07:00 MPV 7.8 fl (7.5-11.1) 10/20/19 07:00 Sodium 139 mmol/L (136-145) 10/20/19 07:00 Potassium 3.9 mmol/L (3.5-5.1) 10/20/19 07:00 Chloride 106 mmol/L (98-107) 10/20/19 07:00 Carbon Dioxide 26 mmol/L (21-32) 10/20/19 07:00 Anion Gap 8 MMOL/L (8-16) 10/20/19 07:00 BUN 10.8 mg/dL (7-18) 10/20/19 07:00 Creatinine 0.9 mg/dL (0.55-1.3) 10/20/19 07:00 Est GFR (CKD-EPI)AfAm 132.37 10/20/19 07:00 Est GFR (CKD-EPI)NonAf 114.21 10/20/19 07:00 Random Glucose 103 mg/dL (74-106) 10/20/19 07:00 Calcium 9.1 mg/dL (8.5-10.1) 10/20/19 07:00 Total Bilirubin 0.3 mg/dL (0.2-1) 10/20/19 07:00 AST 11 U/L (15-37) L 10/20/19 07:00 ALT 19 U/L (13-61) 10/20/19 07:00 Alkaline Phosphatase 71 U/L (45-117) 10/20/19 07:00 Total Protein 7.1 g/dl (6.4-8.2) 10/20/19 07:00 Albumin 3.2 g/dl (3.4-5.0) L 10/20/19 07:00 Syphilis Serology Non-reactive (NONREACTIVE) 10/20/19 07:00 COVID-19 (HERRERA) Not detected (Not Detected) 10/19/19 09:00 Assessment: 10/23/19 09:43 no withdrawal symptom Plan: stable for discharge today,follow up with after care program as [facility]
--- NOTE | 2019-10-23 09:51 | DS ---
[facility] Detox Discharge Summary Admission Date: 10/19/19 Discharge Date: 10/23/19 - History Present History: Alcohol Dependence, Opioid Dependence, Sedative Dependence Additional Comments: alert,oriented x 3 ambulation on the unit lung clear bilaterally on auscultation abdomen soft,no pain,no tenderness no withdrawal symptom stable for discharge today total time spending on discharge 30 minutes follow up with after care program as arrangement [facility] patient would like to go home first and will go to [facility] by himself in am has albuterol inhaler at home left the unit in good and stable condition Pertinent Past History: asthma nicotine dependence - Physical Exam Results Vital Signs: Vital Signs Temperature 96.9 F L 10/23/19 05:34 Pulse Rate 64 10/23/19 05:34 Respiratory Rate 20 10/23/19 05:34 Blood Pressure 105/61 10/23/19 05:34 O2 Sat by Pulse Oximetry (%) 98 10/23/19 05:34 Pertinent Admission Physical Exam Findings: withdrawal signs and symptom Laboratory Last Values WBC 5.2 K/mm3 (4.0-10.0) 10/20/19 07:00 RBC 4.26 M/mm3 (4.00-5.60) 10/20/19 07:00 Hgb 11.5 GM/dL (11.7-16.9) L 10/20/19 07:00 Hct 34.8 % (35.4-49) L 10/20/19 07:00 MCV 81.8 fl (80-96) 10/20/19 07:00 MCH 27.0 pg (25.7-33.7) 10/20/19 07:00 MCHC 33.0 g/dl (32.0-35.9) 10/20/19 07:00 RDW 13.8 % (11.9-15.9) 10/20/19 07:00 Plt Count 316 K/MM3 (134-434) 10/20/19 07:00 MPV 7.8 fl (7.5-11.1) 10/20/19 07:00 Sodium 139 mmol/L (136-145) 10/20/19 07:00 Potassium 3.9 mmol/L (3.5-5.1) 10/20/19 07:00 Chloride 106 mmol/L (98-107) 10/20/19 07:00 Carbon Dioxide 26 mmol/L (21-32) 10/20/19 07:00 Anion Gap 8 MMOL/L (8-16) 10/20/19 07:00 BUN 10.8 mg/dL (7-18) 10/20/19 07:00 Creatinine 0.9 mg/dL (0.55-1.3) 10/20/19 07:00 Est GFR (CKD-EPI)AfAm 132.37 10/20/19 07:00 Est GFR (CKD-EPI)NonAf 114.21 10/20/19 07:00 Random Glucose 103 mg/dL (74-106) 10/20/19 07:00 Calcium 9.1 mg/dL (8.5-10.1) 10/20/19 07:00 Total Bilirubin 0.3 mg/dL (0.2-1) 10/20/19 07:00 AST 11 U/L (15-37) L 10/20/19 07:00 ALT 19 U/L (13-61) 10/20/19 07:00 Alkaline Phosphatase 71 U/L (45-117) 10/20/19 07:00 Total Protein 7.1 g/dl (6.4-8.2) 10/20/19 07:00 Albumin 3.2 g/dl (3.4-5.0) L 10/20/19 07:00 Syphilis Serology Non-reactive (NONREACTIVE) 10/20/19 07:00 COVID-19 ([facility]) Not detected (Not Detected) 10/19/19 09:00 Vital Signs Temperature 96.9 F L 10/23/19 05:34 Pulse Rate 64 10/23/19 05:34 Respiratory Rate 20 10/23/19 05:34 Blood Pressure 105/61 10/23/19 05:34 O2 Sat by Pulse Oximetry (%) 98 10/23/19 05:34 - Treatment Hospital Course: Detox Protocol Followed, Detoxed Safely, Responded well, Discharged Condition Good, Rehab Referral Accepted Patient has Accepted a Rehab Referral to: [facility] - Medication Discharge Medications: Ambulatory Orders Albuterol Sulfate Inhaler - [Ventolin HFA Inhaler -] 2 puff IH Q4H PRN inhaler 09/27/19 - Diagnosis (1) Alcohol dependence with uncomplicated withdrawal Current Visit: Yes Status: Acute (2) Opioid dependence with withdrawal Current Visit: Yes Status: Acute (3) Asthma Current Visit: Yes Status: Chronic Qualifiers: Asthma severity: mild Asthma persistence: intermittent Asthma complication type: with status asthmaticus Qualified Code(s): J45.22 - Mild intermittent asthma with status asthmaticus (4) Nicotine use disorder Current Visit: No Status: Acute (5) Sedative, hypnotic or anxiolytic dependence with withdrawal, uncomplicated Current Visit: No Status: Acute - AMA Did Patient Leave Against Medical Advice: No
[2019-10-23] MEDS ORDERED: METHADONE HCL 10 MG TABLET (FOR DETOX USE ONLY) PO ONE (10:00)
[2019-10-23 10:56] VITALS: BP 133/79; PULSE 96; TEMP 97.5
[2019-10-24] MEDS ORDERED: METHADONE HCL 5 MG TABLET (FOR DETOX USE ONLY) PO ONE (06:00)
--- NOTE | 2019-10-24 12:00 | EKG ---
Test Reason : Blood Pressure : / mmHG Vent. Rate : 074 BPM Atrial Rate : 074 BPM P-R Int : 158 ms QRS Dur : 090 ms QT Int : 404 ms P-R-T Axes : 053 052 030 degrees QTc Int : 448 ms NORMAL SINUS RHYTHM NORMAL ECG WHEN COMPARED WITH ECG OF 22-OCT-2019 08:53, NO SIGNIFICANT CHANGE WAS FOUND Confirmed by VICTOR MANUEL WEN MD ([id number]) on 10/24/2019 12:00:04 PM Referred By: Confirmed By:VICTOR MANUEL WEN MD
== END 2019-10-23 11:23 | disposition home or self-care (01) | DRG 773 ==
LOC: YASAS 10:18 → Y6N 11:30
PROVIDERS: ADMIT Allergy & Immunology; ATTEND Allergy & Immunology
PROC: HZ2ZZZZ Detoxification Services for Substance Abuse Treatment (ICD-10-PCS; principal; 2019-10-19)
DX: F10.230 Alcohol dependence with withdrawal, uncomplicated (principal); F11.23 Opioid dependence with withdrawal; F13.230 Sedative, hypnotic or anxiolytic dependence with withdrawal, uncomplicated; F17.210 Nicotine dependence, cigarettes, uncomplicated; J45.22 Mild intermittent asthma with status asthmaticus; D64.9 Anemia, unspecified; E88.09 Other disorders of plasma-protein metabolism, not elsewhere classified; I47.1 Supraventricular tachycardia; I48.20 Chronic atrial fibrillation, unspecified; R00.2 Palpitations; R06.02 Shortness of breath; R42 Dizziness and giddiness
CPT/HCPCS: 36415; 80053; 85027; 86780; 93005; 93010; J0735; U0003

== ENCOUNTER 2019-10-21 20:46 | Emergency (ER) | payer OTHER ==
--- NOTE | 2019-10-21 21:00 | PDOC ---
History of Present Illness - General Chief Complaint: Lightheaded Stated Complaint: DIZZINESS Time Seen by Provider: 10/21/19 20:58 - History of Present Illness Initial Comments: Pt is a 29 yo M with PMH asthma, etoh and heroin abuse, who presents following palpitations. Pt is currently at [facility]. Was sitting when he felt like his heart was beating out of his chest. Denies any exertion or anxious/stressful thoughts. He had a similar episode yesterday that was milder in severity that resolved by laying down. He attempted to do that today without resolution in symptoms and notified the nurses. He states that he attempted to stand up and felt lightheaded immediately after standing. Per chart review, physician performed carotid massage and patient states that he felt better immediately afterwards. States that he has had past episodes of similar symptoms after excessive albuterol usage, he last used 2 puffs of albuterol yesterday. Reports chest pressure/tightness. Denies f/c, fatigue, diaphoresis, shortness of breath, cough, wheezing, loss of consciousness. PMH: see HPI PSHx: none Meds: albuterol All: NKDA Social: Denies tobacco use; reports 5drinks/day, marijuana use, heroin use Past History - Medical History Allergies/Adverse Reactions: Allergies Allergy/AdvReac Type Severity Reaction Status Date / Time No Known Allergies Allergy Verified 10/21/19 21:03 Home Medications: Ambulatory Orders Albuterol Sulfate Inhaler - [Ventolin HFA Inhaler -] 2 puff IH Q4H PRN inhaler 09/27/19 Anemia: No Asthma: Yes Cancer: No Cardiac Disorders: No CVA: No COPD: No Dementia: No Diabetes: No GI Disorders: No Disorders: No HTN: No Hypercholesterolemia: No Kidney Stones: No Liver Disease: No Seizures: No Thyroid Disease: No - Surgical History Abdominal Surgery: No Appendectomy: No Cardiac Surgery: No Cholecystectomy: No Lung Surgery: No Neurologic Surgery: No Orthopedic Surgery: No - Reproductive History Testicular Surgery: No - Psycho-Social/Smoking History Smoking History: Former smoker Have you smoked in the past 12 months: No Number of Cigarettes Smoked Daily: 0 If you are a former smoker, when did you quit?: 2015 Cigars Per Day: 0 Review of Systems - Review of Systems Comments:: CONSTITUTIONAL:denies fever, chills, diaphoresis, generalized weakness HEENT:denies rhinorrhea, nasal congestion, sore throat, ear pain, eye pain, visual Changes CARDIOVASCULAR:Reports chest pressure, palpitations, lightheadedness RESPIRATORY:denies cough, wheezing GASTROINTESTINAL: denies abdominal pain, nausea, vomiting, diarrhea, constipation GENITOURINARY:denies dysuria, frequency, urgency MUSCULOSKELETAL:denies myalgia, arthralgia, back pain HEMATOLOGIC/IMMUNOLOGIC:denies easy bleeding, easy bruising NEUROLOGIC:denies headache, loss of consciousness, focal weakness or paresthesias, unsteady gait, seizure, PSYCHIATRIC:denies anxiety *Physical Exam - Physical Exam General: awake, alert, in no acute distress, well developed, well nourished Head: normocephalic, atraumatic Eyes: PERRL, anicteric sclera, conjunctiva clear ENT: Moist mucous membranes Lung: equal breath sounds b/l, CTA b/l, no crackles, wheezes; no distress, speaks full sentences Heart: RRR, normal S1, S2, no murmurs, rubs, gallops Abdomen: soft, non tender, normoactive bowel sounds, no guarding, rebound, masses Extremities: normal ROM, no edema, no erythema or tenderness, DP/PT pulses 2+ and symmetric, no clubbing, cyanosis Neuro: CN2-12 grossly intact, moves all extremities, normal speech, sensation intact Skin: warm, dry, lesions on b/l arms ED Treatment Course - LABORATORY CBC & Chemistry Diagram: 10/21/19 22:00 10/21/19 22:00 Medical Decision Making - Medical Decision Making Mr. Omer is a 29yo M with PMH asthma and polysubstance abuse who presents with palpitations. Vital Signs Period Temp Pulse Resp BP Sys/[place] Pulse Ox Last 24 Hr 97.8 F 101 20 121/87 100 DDx: SVT, sinus tachycardia, ACS Plan: labs, ekg ED course - EKG: normal sinus rhythm, no ST-T changes - CBC: no anemia, no leukocytosis; CMP: no electrolyte abnormalities; initial troponin negative; repeat troponin 3hr after initial - repeat EKG: HR 64, normal sinus rhythm, no ST-T changes - Patient well appearing, asymptomatic at present time and asymptomatic entirety of ED stay Disposition: Pt signed out to Dr. Hernandez Discharge - Discharge Information Problems reviewed: Yes Clinical Impression/Diagnosis: Palpitations Condition: Stable - Follow up/Referral - Patient Discharge Instructions Patient Printed Discharge Instructions: DI for Palpitations Additional Instructions: You came into the ER palpitations. In the ED, you were evaluated with physical exam, troponin x2, EKG x2, and continous cardiac monitoring. Come back to the ER immediately with any new or worsening concerns. Thank you for coming to the [facility] ER. We hope you feel better soon! - Post Discharge Activity
[2019-10-21 21:03] VITALS: BMI 31.3
[2019-10-21 22:33] LABS: BASO % 0.3 % (0-2.0); EOS % 1.7 % (0-4.5); HEMATOCRIT 42.4 % (35.4-49); HEMOGLOBIN 14.1 GM/dL (11.7-16.9); LYMPH % 19.5 % (8-40); MCH 27.2 pg (25.7-33.7); MCHC 33.2 g/dl (32.0-35.9); MEAN PLT VOLUME 7.7 fl (7.5-11.1); MONO % 6.8 % (3.8-10.2); NEUT % 71.7 % (42.8-82.8); PLATELET COUNT 410 K/MM3 (134-434); RBC 5.17 M/mm3 (4.00-5.60); WHITE BLOOD COUNT 9.6 K/mm3 (4.0-10.0)
[2019-10-21 23:02] LABS: ALBUMIN 3.6 g/dl (3.4-5.0); ALK PHOS 77 U/L (45-117); ANION GAP 7 MMOL/L (8-16); BILIRUBIN,TOTAL 0.2 mg/dL (0.2-1); BLOOD UREA NITROGEN 11.8 mg/dL (7-18); CALCIUM 9.3 mg/dL (8.5-10.1); CHLORIDE 105 mmol/L (98-107); CO2 27 mmol/L (21-32); CREATININE 0.9 mg/dL (0.55-1.3); GLUCOSE,RANDOM 73 mg/dL (74-106); POTASSIUM 4.1 mmol/L (3.5-5.1); SGOT/AST 17 U/L (15-37); SGPT/ALT 20 U/L (13-61); SODIUM 139 mmol/L (136-145)
--- NOTE | 2019-10-21 23:25 | PDOC ---
Documentation entered by Tu Mccartney SCRIBE, acting as scribe for Ruthie Pena MD. Ruthie Pena MD: This documentation has been prepared by the scribe, Tu Smith SCRIBE, under my direction and personally reviewed by me in its entirety. I confirm that the documentation accurately reflects all work, treatment, procedures, and medical decision making performed by me. Attending Attestation - Resident Resident Name: Clementina Oviedo - ED Attending Attestation I have performed the following: I have examined & evaluated the patient, The case was reviewed & discussed with the resident, I agree w/resident's findings & plan, Exceptions are as noted - HPI HPI: 10/21/19 21:58 The patient is a 29 year old male with a significant past medical history of asthma and alcohol/heroin abuse who presents to the ED from [facility] for evaluation of palpitations that began tonight while sitting. Patient endorses a similar, less severe episode yesterday that went away after lying down. He notes no alleviation of today's symptoms after trying to lay down, so he called his nurse for evaluation. Patient is now asymptomatic. He also reports similar symptoms in the past when overusing albuterol inhaler (last albuterol use: 2 pumps yesterday). The patient denies shortness of breath and chest pain. Denies fever, chills and/or any GI symptoms. Denies any symptoms. Denies any other symptoms. Allergies: NKDA Social Hx: alcohol, heroin, marijuana, tobacco (quit 2 months ago) Surgical Hx: None reported - Physicial Exam PE: 10/21/19 21:58 GENERAL: Well-appearing, well-nourished. No apparent distress. HEENT: Normocephalic, atraumatic. PERRL, EOM intact. CARDIOVASCULAR: Normal S1, S2. Regular rate and rhythm. PULMONARY: Clear to auscultation bilaterally. ABDOMEN: Soft, non-distended, non-tender. EXTREMITIES: Normal ROM in all four extremities. No gross deformities. SKIN: Warm, dry. No rash NEUROLOGICAL: No focal neurological deficits. - Medical Decision Making 10/21/19 23:25 plan 2 troponins and repeat ekg 10/22/19 01:26 initial ekg was nsr @ 95 bpm 10/22/19 01:28 second ekg was nsr@ 64 bpm 10/22/19 01:34 first trop <0.02 Discharge - Discharge Information Problems reviewed: Yes Clinical Impression/Diagnosis: Palpitations Condition: Good Disposition: HOME - Follow up/Referral Referrals: Gomez Choi MD [Staff Physician] - - Patient Discharge Instructions Patient Printed Discharge Instructions: DI for Palpitations Additional Instructions: You came into the ER palpitations. In the ED, you were evaluated with physical exam, troponin x2, EKG x2, and continuous cardiac monitoring. Come back to the ER immediately with any new or worsening concerns. Follow up with the referred framing and hanging Dr Choi Thank you for coming to the [facility] ER. We hope you feel better soon! - Post Discharge Activity
[2019-10-22 02:15] VITALS: PULSE 76
--- NOTE | 2019-10-22 02:42 | PDOC ---
*Physical Exam - Vital Signs Last Vital Signs Temp Pulse Resp BP Pulse Ox 98.5 F 76 18 117/79 100 10/22/19 00:56 10/22/19 00:56 10/22/19 00:56 10/22/19 00:56 10/22/19 00:56 ED Treatment Course - LABORATORY CBC & Chemistry Diagram: 10/21/19 22:00 10/21/19 22:00 - ADDITIONAL ORDERS Additional order review: Laboratory Results 10/22/19 10/21/19 01:16 22:00 Sodium 139 Potassium 4.1 Chloride 105 Carbon Dioxide 27 Anion Gap 7 L BUN 11.8 Creatinine 0.9 Est GFR (CKD-EPI)AfAm 132.37 Est GFR (CKD-EPI)NonAf 114.21 Random Glucose 73 L Calcium 9.3 Total Bilirubin 0.2 AST 17 ALT 20 Alkaline Phosphatase 77 Creatine Kinase 63 Troponin I < 0.02 < 0.02 Total Protein 8.0 Albumin 3.6 10/21/19 22:00 RBC 5.17 MCV 82.0 MCHC 33.2 RDW 14.0 MPV 7.7 Neutrophils % 71.7 Lymphocytes % 19.5 Monocytes % 6.8 Eosinophils % 1.7 Basophils % 0.3 Medical Decision Making - Medical Decision Making 10/22/19 02:41 2nd trop negative. Pt comfortable, no acute distress on re-eval, HR <100. Contacted [facility], agrees with plan to return pt to detox. DC Discharge - Discharge Information Problems reviewed: Yes Clinical Impression/Diagnosis: Palpitations Condition: Good Disposition: HOME - Follow up/Referral Referrals: Gomez Choi MD [Staff Physician] - - Patient Discharge Instructions Patient Printed Discharge Instructions: DI for Palpitations Additional Instructions: You came into the ER palpitations. In the ED, you were evaluated with physical exam, troponin x2, EKG x2, and continuous cardiac monitoring. Come back to the ER immediately with any new or worsening concerns. Follow up with the referred relay tester helper Dr Choi Thank you for coming to the [facility] ER. We hope you feel better soon! - Post Discharge Activity
[2019-10-22 03:09] VITALS: BP 113/81; TEMP 97.9
--- NOTE | 2019-10-22 09:54 | EKG ---
Test Reason : Blood Pressure : / mmHG Vent. Rate : 064 BPM Atrial Rate : 064 BPM P-R Int : 154 ms QRS Dur : 096 ms QT Int : 416 ms P-R-T Axes : 056 051 026 degrees QTc Int : 429 ms NORMAL SINUS RHYTHM NONSPECIFIC ST ABNORMALITY BORDERLINE ECG Confirmed by MD NADLO, SARAH ([id number]) on 10/22/2019 9:54:26 AM Referred By: Confirmed By:SARAH HITCHCOCK MD
== END 2019-10-22 03:44 | disposition home or self-care (01) ==
LOC: JER 20:46
DX: R00.2 Palpitations (principal)
CPT/HCPCS: 36415; 80053; 82550; 84484; 85025; 93005; 93010; 99284-25